=== PATIENT | female | born 1940 | race Caucasian/White ===

== ENCOUNTER 2019-11-27 08:23 | Outpatient (REF) | payer MEDICARE, SELFPAY ==
[2019-11-27 09:36] LABS: MANUAL DIFF FLAG NO
[2019-11-27 09:41] LABS: Basophils Percent Auto 0.5 % (0-2); Eosinophils Absolute Auto 0.1 X10*3/uL (0.0-0.4); Eosinophils Percent Auto 2.4 % (0-4); Imm Gran Abs Auto 0.01 X10*3/uL (0.00-0.03); Imm Gran Pct Auto 0.2 % (0.0-0.4); Lymphocytes Absolute Auto 1.2 X10*3/uL (1.2-4.9); Lymphocytes Percent Auto 27.8 % (20-40); Mean Corpuscular HGB Conc 31.7 g/dl (31.0-35.0); Mean Corpuscular Hemoglobin 26.9 pg (27.0-33.0); Mean Corpuscular Volume 84.9 fL (80-98); Mean Platelet Volume 10.5 fL (9.4-12.3); Monocytes Absolute Auto 0.4 X10*3/uL (0.1-1.2); Monocytes Percent Auto 9.4 % (2-11); Neutrophils Absolute Auto 2.5 X10*3/uL (2.0-8.3); Neutrophils Percent Auto 59.7 % (45-73); Platelet Count 199 X10*3/uL (160-400); Red Blood Count 4.83 X10*6/uL (4.20-5.50); Red Cell Distribution Width 15.1 % (11.0-16.0); White Blood Count 4.2 X10*3/uL (4.8-10.8)
[2019-11-27 10:28] LABS: Alanine Aminotransferase 19 U/L (0-31); Albumin Level 4.2 g/dL (3.5-5.0); Alkaline Phosphatase 70 U/L (39-117); Anion Gap 10 (12-20); Aspartate Amino Transferase 21 U/L (5-31); Bilirubin Total 0.5 mg/dL (0.0-1.0); Blood Urea Nitrogen 16 mg/dL (9-16); Carbon Dioxide 31 mmol/L (22-29); Chloride 106 mmol/L (96-108); Cholesterol 167 mg/dL; Estimated Glomerular Filt Rate > 60; Glucose Random 88 mg/dL (60-115); HDL Cholesterol 54 mg/dL; LDL Cholesterol Calculated 96 mg/dl; Potassium 3.9 mmol/l (3.3-5.1); Sodium 143 mmol/L (135-145); Total Protein 6.7 g/dL (6.5-8.0); Triglycerides 85 mg/dL
[2019-11-27 10:31] LABS: Thyroid Stimulating Hormone 3.66 mIU/mL (0.32-4.0)
[2019-11-27 10:34] LABS: Calcium 9.1 mg/dL (8.4-10.2)
[2019-11-27 12:12] LABS: Erythrocyte Sedimentation Rate 7 MM/HR (0-20)
[2019-11-29 05:11] LABS: Folate 16.4 ng/mL (> or = 4.0); Vitamin B12 455 pg/mL (200-900)
== END 2019-11-27 08:24 | disposition home or self-care (01) ==
LOC: HO.LAB 08:23
PROVIDERS: PCP Internal Medicine; Visit Provider Internal Medicine
DX: E78.00 Pure hypercholesterolemia, unspecified (principal); R53.83 Other fatigue; F32.9 Major depressive disorder, single episode, unspecified; F41.9 Anxiety disorder, unspecified; I10 Essential (primary) hypertension
CPT/HCPCS: 36415; 80053; 80061; 82607; 82746; 84443; 85025; 85652

== ENCOUNTER 2020-02-09 07:52 | Outpatient (REF) | payer MEDICARE, SELFPAY ==
--- NOTE | 2020-02-09 07:54 | XR_ITS ---
EXAMINATION: XR CHEST CLINICAL INFORMATION: Diaphragmatic hernia COMPARISON: Previous chest x-ray most recent July 2019 TECHNIQUE: 2 views of the chest were obtained. FINDINGS: The cardiac and mediastinal contours are normal. There is minimal subsegmental atelectasis at the left lung base. The lungs are otherwise clear. There is no pleural effusion or pneumothorax. There is a severe thoracolumbar scoliosis and increased thoracic kyphosis. There is a right shoulder replacement. XR/XR chest 2V IMPRESSION: No hernia seen. Subsegmental atelectasis of the left lung base. Severe thoracolumbar scoliosis and increased thoracic kyphosis.
--- NOTE | 2020-02-09 07:54 | FL_ITS ---
EXAMINATION: XR GI SERIES CLINICAL INFORMATION: Diaphragmatic hernia COMPARISON: CT of the abdomen and pelvis December 2018 TECHNIQUE: Upper GI was performed using thin and thick barium and effervescent granules. Exam is limited patient limited mobility/difficulty moving. FINDINGS: No hernia is seen. There is slightly abnormal esophageal motility with retrograde peristalsis of contrast. There is mild narrowing of the distal esophagus at the GE junction. When compared with previous CT scan from December 2018 it is uncertain whether this is related to postsurgical change from prior hernia repair or could represent a mild stricture. No significant gastroesophageal reflux is seen. Evaluation of the stomach and duodenum is limited as the patient could not roll on the table. No mass, fold thickening or ulcer is appreciated. FLUOROSCOPY TIME: 2.2 minutes DOSE AREA PRODUCT: 16 steward per centimeter squared. Total dose 72 mg. 29 saved fluoroscopic images. FL/FL upper GI series IMPRESSION: Limited exam due to patient mobility. No hernia seen. Slightly abnormal esophageal motility. Mild fixed narrowing of the distal esophagus at the GE junction. It is uncertain whether this is related to postsurgical change from prior hernia repair or could represent a mild stricture. There is no evidence of obstruction. There is no significant gastroesophageal reflux.
== END 2020-02-09 07:53 | disposition home or self-care (01) ==
LOC: HO.XRAY 07:52
PROVIDERS: Visit Provider Internal Medicine
DX: K44.9 Diaphragmatic hernia without obstruction or gangrene (principal)
CPT/HCPCS: 71046; 74240

== ENCOUNTER 2020-09-02 08:26 | Outpatient (REF) | payer MEDICARE, SELFPAY ==
[2020-09-02 09:10] LABS: MANUAL DIFF FLAG NO
[2020-09-02 09:14] LABS: Basophils Percent Auto 0.4 % (0-2); Eosinophils Absolute Auto 0.1 X10*3/uL (0.0-0.4); Eosinophils Percent Auto 2.3 % (0-4); Hemoglobin 13.9 g/dl (12.0-16.0); Imm Gran Abs Auto 0.02 X10*3/uL (0.00-0.03); Imm Gran Pct Auto 0.4 % (0.0-0.4); Lymphocytes Absolute Auto 1.2 X10*3/uL (1.2-4.9); Lymphocytes Percent Auto 25.8 % (20-40); Mean Corpuscular HGB Conc 33.1 g/dl (31.0-35.0); Mean Corpuscular Hemoglobin 29.5 pg (27.0-33.0); Mean Corpuscular Volume 89.2 fL (80-98); Mean Platelet Volume 10.1 fL (9.4-12.3); Monocytes Absolute Auto 0.4 X10*3/uL (0.1-1.2); Monocytes Percent Auto 8.8 % (2-11); Neutrophils Percent Auto 62.3 % (45-73); Platelet Count 207 X10*3/uL (160-400); Red Blood Count 4.71 X10*6/uL (4.20-5.50); White Blood Count 4.8 X10*3/uL (4.8-10.8)
[2020-09-02 09:38] LABS: Alanine Aminotransferase 10 U/L (0-31); Albumin Level 4.4 g/dL (3.5-5.0); Alkaline Phosphatase 66 U/L (39-117); Anion Gap 12 (12-20); Aspartate Amino Transferase 19 U/L (5-31); Bilirubin Total 0.5 mg/dL (0.0-1.0); Blood Urea Nitrogen 15 mg/dL (9-16); Calcium 9.4 mg/dL (8.4-10.2); Carbon Dioxide 28 mmol/L (22-29); Chloride 105 mmol/L (96-108); Cholesterol 156 mg/dL; Estimated Glomerular Filt Rate > 60; Glucose Random 95 mg/dL (60-115); HDL Cholesterol 54 mg/dL; LDL Cholesterol Calculated 87 mg/dl; Potassium 4.1 mmol/L (3.3-5.1); Sodium 141 mmol/L (135-145); Total Protein 7.1 g/dL (6.5-8.0); Triglycerides 77 mg/dL
[2020-09-02 10:01] LABS: Free T4 (Free Thyroxine) 0.94 ng/dL (0.71-1.85); Thyroid Stimulating Hormone 3.75 uIU/mL (0.32-4.0); Vitamin D 25-OH Total 46.8 ng/mL (>30)
[2020-09-02 10:48] LABS: Glucose Urine UA NEG (NEG); Leukocyte Esterase Urine 3+ (NEG); Nitrite Urine NEG (NEG); Urine Blood TRACE (NEG); Urine Ketones NEG (NEG); Urine Protein NEG (NEG-TRACE)
[2020-09-02 10:49] LABS: Appearance Urine HAZY; Color Urine YELLOW
[2020-09-02 11:06] LABS: Mucus Urine 1+ /LPF; Renal Epithelial Cells Urine 1+ /LPF; Squamous Epithelial Cell Urine 1+ /LPF
[2020-09-04 04:26] LABS: Folate > 20.0 ng/mL (> or = 4.0); Vitamin B12 493 pg/mL (200-900)
== END 2020-09-02 08:27 | disposition home or self-care (01) ==
LOC: HO.LAB 08:26
PROVIDERS: PCP Internal Medicine; Visit Provider Internal Medicine
DX: E78.00 Pure hypercholesterolemia, unspecified (principal)
CPT/HCPCS: 36415; 80053; 80061; 81001; 82306; 82607; 82746; 84439; 84443; 85025

== ENCOUNTER 2020-12-08 14:59 | Outpatient (REF) | payer MEDICARE, SELFPAY ==
--- NOTE | ~2020-12-08 | MM_ITS ---
EXAMINATION: BONE DENSITOMETRY CLINICAL INDICATION: Asymptomatic menopausal state. COMPARISON: Previous BD dated 02/16/2015 and baseline BD dated 07/08/2007. TECHNIQUE: Using a [employer] DXA System (software version: 13.1) manufactured by [employer], dual-energy x-ray absorptiometry was performed of the lumbar spine and left hip. The images are of good technical quality. Summary results are attached. FINDINGS: AP SPINE L1-L4: Current: BMD 0.888 g/cm2, Z-score -0.5, T-score -2.4, osteopenia, 0.4% decrease from previous, 1.3% increase from baseline (<5% change is not significant). Prior: BMD 0.892 g/cm2. Baseline: BMD 0.877 g/cm2. LEFT FEMUR, NECK: Current: BMD 0.666 g/cm2, Z-score -0.5, T-score -2.7, osteoporosis. Prior: BMD 0.764 g/cm2. Baseline: BMD 0.792 g/cm2. LEFT FEMUR, TOTAL: Current: BMD 0.716 g/cm2, Z-score -0.2, T-score -2.3, osteopenia, 10.9% decrease from previous, 22.4% decrease from baseline (<5% change is not significant). Prior: BMD 0.804 g/cm2. Baseline: BMD 0.923 g/cm2. IDENTIFIED RISK FACTORS: Height loss, history of fracture (adult), menopause, hysterectomy, right oophorectomy. HISTORY OF FRACTURE: Humerus/shoulder. MEDICATIONS: Calcium supplements or multivitamin, vitamin D. MM/XR DEXA axial skeleton IMPRESSION: 1. DIAGNOSIS: Severe osteoporosis based on the lowest T-score value of -2.7 in the femoral neck and fracture history applying World Health Organization criteria. 2. 10-YEAR FRACTURE RISK PREDICTION, FRAX: Major osteoporotic fracture (clinical spine, forearm, hip or shoulder) 28.9%. Hip fracture 10.0%. 3. Treatment Recommendations: NOF guidelines recommend consideration for treatment in postmenopausal women and men age 50 and older presenting with the following: -A hip or vertebral (clinical or morphometric) fracture. -T-score less than or equal to -2.5 at the femoral neck or spine after appropriate evaluation to exclude secondary causes. -Low bone mass at the hip or spine and a 10-year fracture probability by FRAX of greater than or equal to 3% for hip fracture or greater than or equal to 20% for major osteoporotic fracture based on the [place] adapted WHO algorithm. 4. Other Recommendations: All treatment decisions require clinical judgment and consideration of individual patient factors, including patient preferences, comorbidities, previous drug use, risk factors not captured in the FRAX model (e.g. frailty, falls, vitamin D deficiency, increased bone turnover, interval significant decline in bone density) and possible under or overestimation of fracture risk by FRAX. Additional medical evaluation for secondary cause of low bone mineral density may be appropriate. FUTURE SCAN RECOMMENDATION: People with diagnosed cases of osteoporosis or at high risk for fracture should have regular bone mineral density tests. For patients eligible for Medicare, routine testing is allowed once every 2 years. The testing frequency can be increased to one year for patients who have rapidly progressing disease, those who are receiving or discontinuing medical therapy to restore bone mass, or have additional risk factors.
== END 2020-12-08 15:00 | disposition home or self-care (01) ==
LOC: HO.MAMMO 14:59
PROVIDERS: PCP Internal Medicine; Visit Provider Nurse Practitioner Family
DX: Z13.820 Encounter for screening for osteoporosis (principal); M81.0 Age-related osteoporosis without current pathological fracture; Z78.0 Asymptomatic menopausal state; Z87.81 Personal history of (healed) traumatic fracture; Z79.899 Other long term (current) drug therapy
CPT/HCPCS: 77080

== ENCOUNTER 2022-04-27 09:19 | Outpatient (REF) | payer MEDICARE, SELFPAY ==
[2022-04-27 09:36] LABS: MANUAL DIFF FLAG NO
[2022-04-27 10:22] LABS: Basophils Percent Auto 0.4 % (0-2); Eosinophils Absolute Auto 0.1 X10*3/uL (0.0-0.4); Eosinophils Percent Auto 1.9 % (0-4); Hematocrit 40.4 % (37.0-47.0); Hemoglobin 13.4 g/dl (12.0-16.0); Imm Gran Abs Auto 0.02 X10*3/uL (0.00-0.03); Imm Gran Pct Auto 0.4 % (0.0-0.4); Lymphocytes Absolute Auto 1.4 X10*3/uL (1.2-4.9); Lymphocytes Percent Auto 30.5 % (20-40); Mean Corpuscular HGB Conc 33.2 g/dl (31.0-35.0); Mean Corpuscular Hemoglobin 28.6 pg (27.0-33.0); Mean Corpuscular Volume 86.1 fL (80.0-98.0); Mean Platelet Volume 10.5 fL (9.4-12.3); Monocytes Absolute Auto 0.4 X10*3/uL (0.1-1.2); Monocytes Percent Auto 9.4 % (2-11); Neutrophils Absolute Auto 2.7 x10*3/uL (2.0-8.3); Neutrophils Percent Auto 57.4 % (45-73); Platelet Count 181 X10*3/uL (160-400); Red Blood Count 4.69 X10*6/uL (4.20-5.50); Red Cell Distribution Width 13.1 % (11.0-16.0); White Blood Count 4.7 X10*3/uL (4.8-10.8)
[2022-04-27 11:00] LABS: Alanine Aminotransferase 13 U/L (0-31); Alkaline Phosphatase 59 U/L (39-117); Anion Gap 11 (12-20); Aspartate Amino Transferase 19 U/L (5-31); Bilirubin Total 0.6 mg/dL (0.0-1.0); Blood Urea Nitrogen 17 mg/dL (9-16); Carbon Dioxide 29 mmol/L (22-29); Chloride 106 mmol/L (96-108); Cholesterol 149 mg/dL; Estimated Glomerular Filt Rate > 60; Glucose Random 86 mg/dL (60-115); HDL Cholesterol 51 mg/dL; LDL Cholesterol Calculated 86 mg/dl; Potassium 3.4 mmol/L (3.3-5.1); Sodium 143 mmol/L (135-145); Total Protein 6.5 g/dL (6.5-8.0); Triglycerides 61 mg/dL
[2022-04-27 11:15] LABS: TSH reflex Free T4 4.02 uIU/mL (0.32-4.0)
[2022-04-27 11:28] LABS: Folate 15.5 ng/mL (> or = 4.0); Free T4 (Free Thyroxine) 0.86 ng/dL (0.71-1.85); Thyroid Stimulating Hormone 3.94 uIU/mL (0.32-4.0); Vitamin B12 691 pg/mL (200-900); Vitamin D 25-OH Total 56.5 ng/mL (>30)
== END 2022-04-27 09:20 | disposition home or self-care (01) ==
LOC: HO.LAB 09:19
PROVIDERS: PCP Internal Medicine; Visit Provider Internal Medicine
DX: Z13.29 Encounter for screening for other suspected endocrine disorder (principal); E78.00 Pure hypercholesterolemia, unspecified; M81.0 Age-related osteoporosis without current pathological fracture
CPT/HCPCS: 36415; 80053; 80061; 82306; 82607; 82746; 84439; 84443; 85025

== ENCOUNTER → 2022-07-30 15:52 | Outpatient (REF) | payer MEDICARE, SELFPAY ==
--- NOTE | 2022-07-30 15:55 | ECG_ITS ---
Test Reason : BRADYCARDIA Blood Pressure : / mmHG Vent. Rate : 067 BPM Atrial Rate : 067 BPM P-R Int : 168 ms QRS Dur : 092 ms QT Int : 422 ms P-R-T Axes : 018 030 023 degrees QTc Int : 445 ms Sinus rhythm with Premature atrial complexes Otherwise normal ECG When compared with ECG of 02-AUG-2019 12:09, Premature atrial complexes are now Present Referred By: Jaimee Drake Electronically Signed By:MAL MAXWELL
== END ==
LOC: HO.CARD 15:52
PROVIDERS: PCP Internal Medicine; Visit Provider Internal Medicine
DX: R00.1 Bradycardia, unspecified (principal)
CPT/HCPCS: 93005

== ENCOUNTER 2022-09-04 10:22 | Outpatient (REF) | payer MEDICARE, SELFPAY ==
--- NOTE | ~2022-09-04 | CT_ITS ---
EXAMINATION: CT HEAD WITHOUT CONTRAST CLINICAL INFORMATION: Cognitive impairment. COMPARISON: Head CT dated 08/02/2019. TECHNIQUE: Contiguous axial imaging was performed from the skull base to vertex without intravenous administration of contrast. This CT examination was performed using dose optimization techniques as appropriate, variously including the following: *Automated exposure control *Adjustment of mA and/or kV according to patient size (this includes techniques or standardized protocols for targeted exams where dose is matched to indication/reason for exam; i.e. extremities or head) *Use of iterative reconstruction technique DLP: 779 mGy-cm FINDINGS: There is no evidence of acute intracranial hemorrhage or territorial infarction. No abnormal mass effect or midline shift is seen. Olmedo to white matter differentiation is well preserved. No extra-axial fluid collections are identified. Generalized parenchymal volume loss noted with [id number] chronic white matter microangiopathy and concordant ex vacuo dilatation of the ventricles. The osseous structures and soft tissues are normal. The mastoid air cells are well aerated. There is significant mucosal thickening in the dependent portion of the right maxillary antrum with chronic sclerotic wall thickening. Trace fluid and aerosolized secretions layer in the right sphenoid sinus with chronic sclerotic wall thickening. The remaining paranasal sinuses are fairly well aerated. CT/CT head/brain wo IV con IMPRESSION: No acute intracranial hemorrhage or territorial infarction. [id number] chronic white matter microangiopathy and progressed moderate diffuse parenchymal volume loss compared to prior imaging with associated ex vacuo dilatation of the ventricles. Moderate right maxillary sinus disease with chronic sclerotic wall thickening. Trace aerosolized secretions and fluid layering in the dependent right sphenoid sinus.
== END 2022-09-04 10:23 | disposition home or self-care (01) ==
LOC: HO.CT 10:22
PROVIDERS: PCP Internal Medicine; Visit Provider Internal Medicine
DX: R41.89 Other symptoms and signs involving cognitive functions and awareness (principal)
CPT/HCPCS: 70450

== ENCOUNTER 2022-09-24 15:16 | Outpatient (AMB) | payer MEDICARE, SELFPAY ==
--- NOTE | 2022-09-24 15:18 | A.OFFPC_ITS ---
Vital Signs 09/24/22 15:19 Height 4 ft 11 in Weight 120 lb BMI 24.2 BP 138/80 Blood Pressure Location Lt brachial Position Sitting Pulse 67 Pulse Source Pulse Oximeter Pulse Oximetry (%) 96 Oxygen Delivery Method Room Air Intake Visit Reasons: Cognitive impairment, le on back painful Allergies meperidine [Demerol] Allergy (Unknown, Verified 09/24/22 15:19) Unknown morphine [MORPHINE] Allergy (Unknown, Verified 09/24/22 15:19) UNKNOWN Sulfa (Sulfonamide Antibiotics) Allergy (Unknown, Verified 09/24/22 15:19) unknown sulfur Allergy (Unknown, Verified 09/24/22 15:19) Unknown amoxicillin [From Augmentin] Adverse Reaction (Intermediate, Verified 09/24/22 15:19) C diff clavulanic acid [From Augmentin] Adverse Reaction (Intermediate, Verified 09/24/22 15:19) C diff Medication List - Last Reconciled 09/24/22 by Jaimee Drake MD acetaminophen 325 mg PO QID PRN albuterol sulfate 90 mcg/actuation 2 puffs PO Q4H PRN alprazolam 0.5 mg PO BID amlodipine 10 mg PO DAILY ascorbic acid (vitamin C) 250 mg PO DAILY atorvastatin 10 mg PO DAILY cholecalciferol (vitamin D3) 25 mcg PO DAILY 90 days cyclobenzaprine 5 mg PO TID PRN fexofenadine 180 mg PO DAILY PRN fluticasone propionate 50 mcg/actuation (Flonase Allergy Relief) 2 sprays intranasal DAILY lisinopril-hydrochlorothiazide 20-12.5 mg 1 tab PO DAILY multivitamin 1 tab PO DAILY omeprazole 20 mg PO DAILY sertraline 200 mg (2 x 100 mg) PO DAILY simethicone 80 mg PO BID-QID PRN Tobacco use date assessed: 07/30/22 Fall risk assessment: No Falls in past year Last assessed Fall Risk: 09/24/22 Dental Screening Dental Screen Date: 09/24/22 Did you have a dental visit in the last 12 months?: No Did you have a dental problem in the last 6 months where you did not have access to dental care?: No Was dental information given to patient?: No HPI Cognitive impairment HPI Details 82-year-old female with multiple medical problems she has osteoporosis, hypertension hypercholesterolemia COPD generalized anxiety disorder GERD cognitive impairment last seen in July 2022 workup was requested and is here for follow-up CT scan of the head done August 2022No acute intracranial hemorrhage or territorial infarction. [id number]-[id number] chronic white matter microangiopathy and progressed moderate diffuse parenchymal volume loss compared to prior imaging with associated ex vacuo dilatation of the ventricles. Moderate right maxillary sinus disease with chronic sclerotic wall thickening. Trace aerosolized secretions and fluid layering in the dependent right sphenoid sinus. [facility] Medical History (Updated 09/24/22 @ 15:45 by Jaimee Drake MD) COPD (chronic obstructive pulmonary disease) Fracture, humerus Hypercholesterolemia Hypertension Severe scoliosis Shoulder impingement syndrome Tiredness Tubular adenoma of colon Surgical History History of colonoscopy History of removal of ovarian cyst History of tonsillectomy Paraesophageal hernia S/P STORM-BSO Family History Father CVD (cardiovascular disease) Heart failure Mother Cervical cancer Sister In good health Social History Housing: House Alcohol intake: never Patient Tobacco Use Status: Never used Tobacco Tobacco use type: Cigarette e-Cigarette/Vaping Use: Never Used Second Hand Smoke Exposure: No service: No Current occupational status: retired Cognitive needs: No Hearing needs: No Vision needs: Yes Questionnaire PHQ-9 Over the last 2 weeks, how often have you been bothered by any of the following problems? 1. Little interest or pleasure in doing things: not at all 2. Feeling down, depressed, or hopeless: not at all 3. Trouble falling or staying asleep, or sleeping too much: several days 4. Feeling tired or having little energy: not at all 5. Poor appetite or overeating: not at all 6. Feeling bad about yourself - or that you are a failure or have let yourself or your family down: not at all 7. Trouble concentrating on things, such as reading the newspaper or watching television: not at all 8. Moving or speaking so slowly that other people could have noticed. Or the opposite - being so fidgety or restless that you have been moving around a lot more than usual: not at all 9. Thoughts that you would be better off or of hurting yourself in some way: not at all Total score: 1 Depression Screening Interpretation: Positive Source: Developed by Drs. Cody Yusuf, Johann Kulkarni and colleagues, with an educational obed from [employer]. Thrive Questionnaire Date Thrive assessed: 07/30/22 AUDIT C Alcohol Use Questionnaire (AUDIT-C) 1. How often do you have a drink containing alcohol?: Never 2. How many drinks containing alcohol do you have on a typical day when you are drinking?: 1 or 2 3. How often do you have six or more drinks on one occasion?: Never Total Score: 0 Score Reviewed/Action Taken: No RENALDO-7 AMB Questionnaire RENALDO-7 Date RENALDO - 7 assessed: 07/30/22 Source: Developed by Drs. Cody Yusuf, Virginia Avila, Johann Khoury and colleagues, with an educational obed from [employer]. Physical exam (Primary Care) Vital Signs: Last Vital Signs Pulse 67 09/24/22 15:19 BP 138/80 09/24/22 15:19 Pulse Ox 96 09/24/22 15:19 Oxygen Delivery Method Room Air 09/24/22 15:19 BMI result Body Mass Index 24.2 Tobacco/Smoking Status: Tobacco use Status Tobacco use date assessed 07/30/22 09/24/22 15:26 Patient Tobacco Use Status Never used Tobacco 09/24/22 15:26 Tobacco use type Cigarette 09/24/22 15:26 e-Cigarette/Vaping Use Never Used 09/24/22 15:26 PHQ-9: PHQ-9 Score PHQ-9: Total score 1 09/24/22 15:26 Depression Screening Interpretation: Positive Thrive Assessment: Date of Thrive Assessment Date Thrive assessed 07/30/22 09/24/22 15:26 Const General: alert; No acute distress Eyes Conjunctivae: conjunctivae normal Resp Auscultation: clear to auscultation bilaterally Cardio Rate: regular rate Rhythm: regular rhythm GI Inspection: Yes normal to inspection Back/Spine/Pelvis Other: Upper back noted 2 cm rounded hyper pigmented elevated rash with mild scaliness nontender on palpation. Extrem General: Yes normal to inspection and No edema Assessment and Plan Assessment & Plan (1) Cognitive impairment: Comment: severe MMS 1030 Code(s): R41.89 - Other symptoms and signs involving cognitive functions and awareness Plan: CT scan revealsNo acute intracranial hemorrhage or territorial infarction. Glhb-qf-[id number] chronic white matter microangiopathy and progressed moderate diffuse parenchymal volume loss compared to prior imaging with associated ex vacuo dilatation of the ventricles. Moderate right maxillary sinus disease with chronic sclerotic wall thickening. Trace aerosolized secretions and fluid layering in the dependent right sphenoid sinus. will start with aricept (2) GERD (gastroesophageal reflux disease): Code(s): K21.9 - Gastro-esophageal reflux disease without esophagitis Plan: Avoid the foods that causes that usually spicy foods, tomato products, juices, coffee, soda and foods that your sensitive to. After eating do not lie down, allow 3-4 hours before in lie down. And keep the head of bed above 30 degrees to avoid the acid from going up. (3) Generalized anxiety disorder: Code(s): F41.1 - Generalized anxiety disorder Plan: Continue with present medication (4) COPD (chronic obstructive pulmonary disease): Code(s): J44.9 - Chronic obstructive pulmonary disease, unspecified Qualifiers: COPD type: emphysema Emphysema type: unspecified Qualified Code(s): J43.9 - Emphysema, unspecified Plan: Stable no inhalers needed (5) Hypercholesterolemia: Code(s): E78.00 - Pure hypercholesterolemia, unspecified Plan: Avoid fried foods, chicken skin, eggs, butter margarine, pastries and meat. Be it pork or beef they have a lot of cholesterol on atorvastatin 10 mg once a day (6) Hypertension: Code(s): I10 - Essential (primary) hypertension Qualifiers: Hypertension type: essential hypertension Qualified Code(s): I10 - Essential (primary) hypertension Plan: Continue with blood pressure medication. Decrease salt intake and exercise lisinopril hydrochlorothiazide 2012.5 and amlodipine 10 mg once a day (7) Eczema: Comment: L upper back area Code(s): L30.9 - Dermatitis, unspecified Plan: steroid cream sent in , and awaiting dermatology Medications: New mometasone 0.1% 1-2 week only 1 appl topical BID PRN 45 grams 0RF skin irritation L30.9 - Dermatitis, unspecified donepezil (Aricept) 5 mg PO BEDTIME 30 tabs 5RF R41.89 - Other symptoms and signs involving cognitive functions and awareness Changed From alprazolam 0.5 mg PO BID 90 days 180 tabs 1RF F32.9 - Major depressive disorder, single episode, unspecified, F41.9 - Anxiety disorder, unspecified To alprazolam Takes 1/2 a tab in the AM, full tab in the PM 0.5 mg PO BID F32.9 - Major depressive disorder, single episode, unspecified, F41.9 - Anxiety disorder, unspecified Coding Level of Care Code Est Pt Level 4 (44615) Diagnoses Cognitive impairment R41.89 GERD (gastroesophageal reflux disease) K21.9 Generalized anxiety disorder F41.1 COPD (chronic obstructive pulmonary disease) J43.9 COPD type: emphysema Emphysema type: unspecified Hypercholesterolemia E78.00 Hypertension I10 Hypertension type: essential hypertension Eczema L30.9
[2022-09-24 15:19] VITALS: BP 138/80; PULSE 67; O2SAT 96; BMI 24.2
== END 2022-09-24 15:51 | disposition home or self-care (01) ==
PROVIDERS: PCP Internal Medicine; Visit Provider Internal Medicine
DX: K21.9 Gastro-esophageal reflux disease without esophagitis (principal); J43.9 Emphysema, unspecified; I10 Essential (primary) hypertension; R41.89 Other symptoms and signs involving cognitive functions and awareness; F41.1 Generalized anxiety disorder; E78.00 Pure hypercholesterolemia, unspecified; L30.9 Dermatitis, unspecified
CPT/HCPCS: 99214

== ENCOUNTER 2022-10-30 13:28 | Outpatient (REF) | payer MEDICARE, SELFPAY ==
[2022-10-30 13:39] LABS: MANUAL DIFF FLAG NO
[2022-10-30 14:37] LABS: Basophils Percent Auto 0.2 % (0-2); Eosinophils Absolute Auto 0.1 X10*3/uL (0.0-0.4); Eosinophils Percent Auto 1.5 % (0-4); Hematocrit 40.2 % (37.0-47.0); Hemoglobin 13.3 g/dl (12.0-16.0); Imm Gran Abs Auto 0.01 X10*3/uL (0.00-0.03); Imm Gran Pct Auto 0.2 % (0.0-0.4); Lymphocytes Absolute Auto 1.8 X10*3/uL (1.2-4.9); Lymphocytes Percent Auto 33.3 % (20-40); Mean Corpuscular HGB Conc 33.1 g/dl (31.0-35.0); Mean Corpuscular Hemoglobin 28.9 pg (27.0-33.0); Mean Corpuscular Volume 87.4 fL (80.0-98.0); Mean Platelet Volume 11.4 fL (9.4-12.3); Monocytes Absolute Auto 0.5 X10*3/uL (0.1-1.2); Monocytes Percent Auto 8.8 % (2-11); Platelet Count 181 X10*3/uL (160-400); Red Cell Distribution Width 13.3 % (11.0-16.0); White Blood Count 5.3 X10*3/uL (4.8-10.8)
[2022-10-30 15:05] LABS: Alanine Aminotransferase 14 U/L (0-31); Albumin Level 4.1 g/dL (3.5-5.0); Alkaline Phosphatase 62 U/L (39-117); Anion Gap 12 (12-20); Aspartate Amino Transferase 21 U/L (5-31); Bilirubin Total 0.4 mg/dL (0.0-1.0); Blood Urea Nitrogen 16 mg/dL (9-16); Calcium 9.5 mg/dL (8.4-10.2); Carbon Dioxide 27 mmol/L (22-29); Chloride 107 mmol/L (96-108); Estimated Glomerular Filt Rate > 60; Glucose Random 90 mg/dL (60-115); Potassium 3.5 mmol/L (3.3-5.1); Sodium 142 mmol/L (135-145)
[2022-10-30 15:21] LABS: Free T4 (Free Thyroxine) 0.85 ng/dL (0.71-1.85); Thyroid Stimulating Hormone 4.27 uIU/mL (0.32-4.0)
== END 2022-10-30 13:29 | disposition home or self-care (01) ==
LOC: HO.LAB 13:28
PROVIDERS: PCP Internal Medicine; Visit Provider Internal Medicine
DX: R94.6 Abnormal results of thyroid function studies (principal)
CPT/HCPCS: 36415; 80053; 84439; 84443; 85025

== ENCOUNTER 2023-01-24 19:03 | Emergency (ER) | payer MEDICARE, SELFPAY ==
--- NOTE | ~2023-01-24 | XR_ITS ---
EXAMINATION: XR HUMERUS, LEFT CLINICAL INFORMATION: Fall COMPARISON: Left shoulder 12/05/2014 TECHNIQUE: AP and lateral views of the left humerus. FINDINGS: The humerus appears unremarkable without evidence of a fracture. Some mild degenerative changes are seen at the AC joint.. Some mild degenerative change seen at the glenohumeral joint. Imaged portions of the shoulder and elbow are otherwise unremarkable. XR/XR humerus LT IMPRESSION: No evidence of a traumatic injury. Mild degenerative changes as described above.
[2023-01-24 19:12] VITALS: BP 147/72; PULSE 85; O2SAT 99
--- NOTE | 2023-01-24 19:14 | ED.FALL ---
HPI - Fall General Chief Complaint: Fall Stated Complaint: L ARM PAIN FELL Time Seen by Provider: 01/24/23 19:13 Source: patient Mode of arrival: EMS Limitations: no limitations History of Present Illness HPI Narrative: Patient came after a mechanical fall was at home going inside the kitchen which had stepped missed and fell landed on left side complaining of pain in the left arm no loss of consciousness denies any head strike no neck pain no pelvic pain Related Data Home Medications Medication Instructions Recorded Confirmed acetaminophen 325 mg capsule 325 mg PO QID PRN 11/25/19 09/24/22 simethicone 80 mg tablet 80 mg PO BID-QID PRN 11/25/19 09/24/22 alprazolam 0.5 mg tablet 0.5 mg PO BID 09/24/22 09/24/22 Previous Rx's Medication Instructions Recorded cyclobenzaprine 5 mg tablet 5 mg PO TID PRN muscle spasm #60 01/30/21 tabs albuterol sulfate 90 mcg/actuation 2 puff PO Q4H PRN bronchospasm 04/05/22 aerosol inhaler #8.5 grams amlodipine 10 mg tablet 10 mg PO DAILY #90 tabs 04/05/22 atorvastatin 10 mg tablet 10 mg PO DAILY #90 tabs 04/05/22 fexofenadine 180 mg tablet 180 mg PO DAILY PRN allergy 04/05/22 symptoms #90 tabs lisinopril 20 1 tab PO DAILY #90 tabs 04/05/22 mg-hydrochlorothiazide 12.5 mg tablet ascorbic acid (vitamin C) 250 mg 250 mg PO DAILY #30 tabs 05/10/22 tablet cholecalciferol (vitamin D3) 25 25 mcg PO DAILY 90 days #90 caps 07/04/22 mcg (1,000 unit) capsule multivitamin 1 tab PO DAILY #90 tabs 07/04/22 sertraline 100 mg tablet 200 mg (2 x 100 mg) PO DAILY #180 08/16/22 tabs fluticasone propionate 50 2 spray intranasal DAILY #15.8 mL 09/19/22 mcg/actuation nasal spray,suspension (Flonase Allergy Relief) donepezil 5 mg tablet (Aricept) 5 mg PO BEDTIME #30 tabs 09/24/22 mometasone 0.1 % topical cream 1 appl topical BID PRN skin 09/24/22 irritation #45 grams omeprazole 20 mg capsule,delayed 20 mg PO DAILY #90 caps 01/07/23 release Allergies Allergy/AdvReac Type Severity Reaction Status Date / Time meperidine [Demerol] Allergy Unknown Unknown Verified 09/24/22 15:19 morphine [MORPHINE] Allergy Unknown UNKNOWN Verified 09/24/22 15:19 Sulfa (Sulfonamide Allergy Unknown unknown Verified 09/24/22 15:19 Antibiotics) sulfur Allergy Unknown Unknown Verified 09/24/22 15:19 amoxicillin [From Augmentin] AdvReac Intermediate C diff Verified 09/24/22 15:19 clavulanic acid AdvReac Intermediate C diff Verified 09/24/22 15:19 [From Augmentin] Review of Systems Review of Systems: Yes all other systems are reviewed and are negative PMFSH Past Medical History Medical History Tiredness Fracture, humerus Shoulder impingement syndrome Tubular adenoma of colon Severe scoliosis COPD (chronic obstructive pulmonary disease) Hypercholesterolemia Hypertension Surgical History History of colonoscopy History of removal of ovarian cyst History of tonsillectomy S/P STORM-BSO Paraesophageal hernia Family History Family History Father CVD (cardiovascular disease) Heart failure Mother Cervical cancer Sister In good health Social History Social History Housing: House Alcohol intake: never Patient Tobacco Use Status: Never used Tobacco Tobacco use type: Cigarette Smoked in Last 30 Days: No e-Cigarette/Vaping Use: Never Used Second Hand Smoke Exposure: No Advance Directives: Yes Advance Directives on File: No service: No Current occupational status: retired Cognitive needs: No Hearing needs: No Vision needs: Yes Physical Exam Vital Signs: Vital Signs: Last Vital Signs Temp 98.2 F 01/24/23 19:19 Pulse 87 01/24/23 19:19 Resp 17 01/24/23 19:19 BP 154/71 H 01/24/23 19:19 Pulse Ox 98 01/24/23 19:19 O2 Del Method Room Air 01/24/23 19:19 BMI result Body Mass Index 21.1 Appearance: Alert. Oriented X3. No acute distress. Eyes: PERRLA, No Nystagmus ENT: Pharynx normal. Oral Mucosa moist Neck: Normal inspection. Neck supple. No midline tenderness CVS: Normal heart rate and rhythm. Pulses normal. Respiratory: No respiratory distress. Equal air entry bilateral, Abdomen: Soft and nontender. Bowel sounds are present, Skin: Skin warm and dry. Normal skin color. Normal skin turgor. Extremities: No lower extremity edema. No calf tenderness tenderness at left upper end of humerus neurovascular intact Neuro: Oriented X 3. No motor deficit. No sensory deficit.No cerebellar signs , cranial nerves II-XII intact Medications Administered Discontinued Medications Generic Name Dose Route Start Last Admin Trade Name Freq PRN Reason Stop Dose Admin Acetaminophen 650 mg 01/24/23 19:53 01/24/23 20:08 Acetaminophen 325 Mg Tablet PO 01/24/23 19:54 650 mg ONCE ONE Administration Medical Decision Making Medical Decision Making MDM Narrative: Patient status post mechanical fall with left upper and humerus pain and tenderness no deformity noticed neurovascular intact x-ray negative for fracture but patient still has pain but able to move her left humerus will give her sling advised to follow-up PCP/orthopedic Differential Diagnosis Differential Diagnoses: The differential diagnosis associated with the presentation includes Humerus fracture/clavicle fracture Independent Interpretation I performed an independent interpretation of an: Plain X-Ray Radiology Impression Discussion of test interpretation with radiology: I have reviewed the radiologist's reading. Radiologist Impression: XR/XR humerus LT IMPRESSION: No evidence of a traumatic injury. Mild degenerative changes as described above. Discharge Plan Discharge Clinical Impression: Contusion of left shoulder Patient Disposition: Home, Self-Care Instructions: Shoulder Pain (ED) Additional Instructions: Likely have contusion of your left shoulder No clear-cut fracture was seen in xray Wear the sling for support Tylenol for pain Follow-up with PCP/Orthopedics if pain continues for a recheck Prescriptions: No Action cyclobenzaprine 5 mg tablet 5 mg PO TID PRN (Reason: muscle spasm) Qty: 60 3RF lisinopril-hydrochlorothiazide 20-12.5 mg tablet 1 tab PO DAILY Qty: 90 3RF atorvastatin 10 mg tablet 10 mg PO DAILY Qty: 90 3RF amlodipine 10 mg tablet 10 mg PO DAILY Qty: 90 3RF albuterol sulfate 90 mcg/actuation HFA aerosol inhaler 2 puff PO Q4H PRN (Reason: bronchospasm) Qty: 8.5 0RF fexofenadine 180 mg tablet 180 mg PO DAILY PRN (Reason: allergy symptoms) Qty: 90 3RF ascorbic acid (vitamin C) 250 mg tablet 250 mg PO DAILY Qty: 30 0RF multivitamin Tablet 1 tab PO DAILY Qty: 90 1RF cholecalciferol (vitamin D3) 25 mcg (1,000 unit) capsule 25 mcg PO DAILY 90 Days Qty: 90 1RF sertraline 100 mg tablet 200 mg PO DAILY Qty: 180 2RF fluticasone propionate [Flonase Allergy Relief] 50 mcg/actuation spray,suspension 2 spray intranasal DAILY Qty: 15.8 5RF Rx Instructions: administer into each nostril omeprazole 20 mg capsule,delayed release(DR/EC) 20 mg PO DAILY Qty: 90 2RF acetaminophen 325 mg capsule 325 mg PO QID PRN simethicone 80 mg tablet 80 mg PO BID-QID PRN alprazolam 0.5 mg tablet 0.5 mg PO BID Rx Instructions: Takes 1/2 a tab in the AM, full tab in the PM mometasone 0.1 % cream 1 appl topical BID PRN (Reason: skin irritation) Qty: 45 0RF Rx Instructions: 1-2 week only donepezil [Aricept] 5 mg tablet 5 mg PO BEDTIME Qty: 30 5RF
[2023-01-24 19:16] VITALS: BMI 21.1
[2023-01-24 19:19] VITALS: BP 154/71; PULSE 87; RESP 17; TEMP 36.8; O2SAT 98
[2023-01-24] MEDS: Acetaminophen 325 MG TABLET 650 MG PO (20:08)
--- NOTE | 2023-01-24 21:20 | PC.NURSE ---
ambulated pt with assist. tolorated well. eddie at bedside stst will be home with her for help
[2023-01-24 22:02] VITALS: BP 130/67; PULSE 91
== END 2023-01-24 22:34 | disposition home or self-care (01) ==
PROVIDERS: Emergency Provider Internal Medicine; PCP Internal Medicine
DX: S40.012A Contusion of left shoulder, initial encounter (principal); M79.602 Pain in left arm; W10.9XXA Fall (on) (from) unspecified stairs and steps, initial encounter; Y93.9 Activity, unspecified; Y92.9 Unspecified place or not applicable; Y99.9 Unspecified external cause status; Z79.899 Other long term (current) drug therapy
CPT/HCPCS: 73060; 99283; 99284

== ENCOUNTER 2023-02-04 12:43 | Outpatient (AMB) | payer MEDICARE, SELFPAY ==
[2023-02-04 12:51] VITALS: BP 124/78; PULSE 78; O2SAT 98; BMI 20.3
--- NOTE | 2023-02-04 12:51 | A.OFFPC_ITS ---
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 Technology Architect: Present Accompanied by: Daughter Allergies meperidine [Demerol] Allergy (Unknown, Verified 02/04/23 12:52) Unknown morphine [MORPHINE] Allergy (Unknown, Verified 02/04/23 12:52) UNKNOWN Sulfa (Sulfonamide Antibiotics) Allergy (Unknown, Verified 02/04/23 12:52) unknown sulfur Allergy (Unknown, Verified 02/04/23 12:52) Unknown amoxicillin [From Augmentin] Adverse Reaction (Intermediate, Verified 02/04/23 12:52) C diff clavulanic acid [From Augmentin] Adverse Reaction (Intermediate, Verified 02/04/23 12:52) C diff Tobacco use date assessed: 07/30/22 Fall risk assessment: 1 Fall in past year Last assessed Fall Risk: 02/04/23 Dental Screening Dental Screen Date: 02/04/23 Did you have a dental visit in the last 12 months?: Yes Did you have a dental problem in the last 6 months where you did not have access to dental care?: No Was dental information given to patient?: Patient has dentist HPI Fall 2 HPI0 Details 82-year-old female with a history of cog nitive impairment GERD generalized anxiety disorder COPD hypercholesterolemia hypertension last seen in September 2022. Patient does have severe osteoporosis and last bone density was December 2020. Review of the notes January 24 had a mechanical fall missed step and landed on the left side now complaining of left arm pain denies any head trauma x-ray done with no evidence of traumatic/fracture diagnosis of contusion of the left shoulder. slipped on a rug. taken off aricept due to not feeling well. L arm still in pain. concern on falls also - bed is high and have difficulty going down bed and asking for lower bed height - advisd to ask medical supply store a lower bed height . also concern on neck glands bigger 1 week already [facility] Medical History Tiredness Fracture, humerus Shoulder impingement syndrome Tubular adenoma of colon Severe scoliosis COPD (chronic obstructive pulmonary disease) Hypercholesterolemia Hypertension Surgical History History of colonoscopy History of removal of ovarian cyst History of tonsillectomy S/P STORM-BSO Paraesophageal hernia Family History Father CVD (cardiovascular disease) Heart failure Mother Cervical cancer Sister In good health Social History Housing: House Alcohol intake: never Patient Tobacco Use Status: Never used Tobacco Tobacco use type: Cigarette e-Cigarette/Vaping Use: Never Used Second Hand Smoke Exposure: No service: No Current occupational status: retired Cognitive needs: No Hearing needs: No Vision needs: Yes Questionnaire Thrive Questionnaire Date Thrive assessed: 07/30/22 RENALDO-7 AMB Questionnaire RENALDO-7 Date RENALDO - 7 assessed: 07/30/22 Source: Developed by Drs. Cody Yusuf, Virginia Avila, Johann Khoury and colleagues, with an educational obed from [employer]. Physical exam (Primary Care) Vital Signs: Last Vital Signs Pulse 78 02/04/23 12:51 BP 124/78 02/04/23 12:51 Pulse Ox 98 02/04/23 12:51 Oxygen Delivery Method Room Air 02/04/23 12:51 BMI result Body Mass Index 20.3 Tobacco/Smoking Status: Tobacco use Status Tobacco use date assessed 07/30/22 02/04/23 12:56 Patient Tobacco Use Status Never used Tobacco 02/04/23 12:56 Tobacco use type Cigarette 02/04/23 12:56 e-Cigarette/Vaping Use Never Used 02/04/23 12:56 Thrive Assessment: Date of Thrive Assessment Date Thrive assessed 07/30/22 02/04/23 12:56 Const General: alert; No acute distress Eyes Conjunctivae: conjunctivae normal Resp Auscultation: clear to auscultation bilaterally Cardio Rate: regular rate Rhythm: regular rhythm GI Inspection: Yes normal to inspection Extrem General: Yes normal to inspection and No edema Shoulder/upper arm images: 2 1. Noted hematoma on the left arm to the posterior area Assessment and Plan Assessment & Plan (1) Contusion of left shoulder: Code(s): S40.012A - Contusion of left shoulder, initial encounter Plan: no fracture on humerus, physical therapy advsied , holding off ortho referral for now (2) Fall: Code(s): W19.XXXA - Unspecified fall, initial encounter Plan: Patient is aware offered physical therapy (3) Hypertension: Code(s): I10 - Essential (primary) hypertension Qualifiers: Hypertension type: essential hypertension Qualified Code(s): I10 - Essential (primary) hypertension Plan: Continue with blood pressure medication. Decrease salt intake and exercise patient takes lisinopril hydrochlorothiazide (4) Hypercholesterolemia: Code(s): E78.00 - Pure hypercholesterolemia, unspecified Plan: Avoid fried foods, chicken skin, eggs, butter margarine, pastries and meat. Be it pork or beef they have a lot of cholesterol patient is on atorvastatin 10 mg once a day (5) COPD (chronic obstructive pulmonary disease): Code(s): J44.9 - Chronic obstructive pulmonary disease, unspecified Qualifiers: COPD type: emphysema Emphysema type: unspecified Qualified Code(s): J 43.9 - Emphysema, unspecified Plan: Stable (6) Generalized anxiety disorder: Code(s): F41.1 - Generalized anxiety disorder Plan: Patient has alprazolam and sertraline (7) Osteoporosis: Comment: December 2020 Code(s): M81.0 - Age-related osteoporosis without current pathological fracture Plan: Discussed about repeat., declined med (8) Gait instability: Code(s): R26.81 - Unsteadiness on feet Plan: Patient will give the name of the type of bed needed to be lower so the patient is able to get out of bed easier Coding Level of Care Code Est Pt Level 4 (19984) Diagnoses Contusion of left shoulder S40.012A Fall W19.XXXA Essential hypertension I10 Hypertension type: essential hypertension Hypercholesterolemia E78.00 Pulmonary emphysema, unspecified emphysema type J43.9 COPD type: emphysema Emphysema type: unspecified Generalized anxiety disorder F41.1 Osteoporosis M81.0 Gait instability R26.81
== END 2023-02-04 13:40 | disposition home or self-care (01) ==
PROVIDERS: PCP Internal Medicine; Visit Provider Internal Medicine
DX: J43.9 Emphysema, unspecified (principal); S40.012A Contusion of left shoulder, initial encounter; W19.XXXA Unspecified fall, initial encounter; I10 Essential (primary) hypertension; E78.00 Pure hypercholesterolemia, unspecified; F41.1 Generalized anxiety disorder; M81.0 Age-related osteoporosis without current pathological fracture; R26.81 Unsteadiness on feet
CPT/HCPCS: 99214

== ENCOUNTER 2023-03-22 10:09 | Outpatient (REF) | payer MEDICARE, SELFPAY ==
[2023-03-22 11:28] LABS: Thyroid Stimulating Hormone 3.15 uIU/mL (0.32-4.0)
== END 2023-03-22 10:10 | disposition home or self-care (01) ==
LOC: HO.LAB 10:09
PROVIDERS: PCP Internal Medicine; Visit Provider Internal Medicine
DX: R79.89 Other specified abnormal findings of blood chemistry (principal)
CPT/HCPCS: 36415; 84439; 84443

== ENCOUNTER 2023-03-28 15:16 | Outpatient (AMB) | payer MEDICARE, SELFPAY ==
[2023-03-28 15:17] VITALS: BP 110/68; PULSE 65; O2SAT 96; BMI 19.7
--- NOTE | 2023-03-28 15:17 | A.OFFPC_ITS ---
Vital Signs 03/28/23 15:17 Height 5 ft 4 in Weight 115 lb 0.2 oz BMI 19.7 BP 110/68 Blood Pressure Location Rt brachial Position Sitting Pulse 65 Pulse Source Pulse Oximeter Pulse Oximetry (%) 96 Oxygen Delivery Method Room Air Intake Visit Reasons: cognitive impairment Launch Check Out Required: No Allergies meperidine [Demerol] Allergy (Unknown, Verified 03/28/23 15:48) Unknown morphine [MORPHINE] Allergy (Unknown, Verified 03/28/23 15:48) UNKNOWN Sulfa (Sulfonamide Antibiotics) Allergy (Unknown, Verified 03/28/23 15:48) unknown sulfur Allergy (Unknown, Verified 03/28/23 15:48) Unknown amoxicillin [From Augmentin] Adverse Reaction (Intermediate, Verified 03/28/23 15:48) C diff clavulanic acid [From Augmentin] Adverse Reaction (Intermediate, Verified 03/28/23 15:48) C diff Tobacco use date assessed: 03/28/23 Fall risk assessment: 1 Fall in past year Last assessed Fall Risk: 03/28/23 Dental Screening Dental Screen Date: 03/28/23 Did you have a dental visit in the last 12 months?: No Did you have a dental problem in the last 6 months where you did not have access to dental care?: No HPI cognitive impairment HPI Details 83-year-old female seen last January fo r fall has a history of hypertension hypercholesterolemia COPD generalized anxiety disorde. Patient is here for follow-up. doing PT at home and range of motion L shoulder is better but still limited to 90 degrees. concern on esophageal hernia and discussed the [facility] Medical History Tiredness Fracture, humerus Shoulder impingement syndrome Tubular adenoma of colon Severe scoliosis COPD (chronic obstructive pulmonary disease) Hypercholesterolemia Hypertension Surgical History History of colonoscopy History of removal of ovarian cyst History of tonsillectomy S/P STORM-BSO Paraesophageal hernia Family History Father CVD (cardiovascular disease) Heart failure Mother Cervical cancer Sister In good health Social History Housing: House Alcohol intake: never Patient Tobacco Use Status: Never used Tobacco Tobacco use type: Cigarette e-Cigarette/Vaping Use: Never Used Second Hand Smoke Exposure: No service: No Current occupational status: retired Cognitive needs: No Hearing needs: No Vision needs: Yes Questionnaire Thrive Questionnaire Date Thrive assessed: 03/28/23 AUDIT C Alcohol Use Questionnaire (AUDIT-C) 1. How often do you have a drink containing alcohol?: Never 2. How many drinks containing alcohol do you have on a typical day when you are drinking?: 1 or 2 3. How often do you have six or more drinks on one occasion?: Never Total Score: 0 Score Reviewed/Action Taken: No RENALDO-7 AMB Questionnaire RENALDO-7 Date RENALDO - 7 assessed: 03/28/23 Source: Developed by Drs. Cody Yusuf, Virginia Avila, Johann Khoury and colleagues, with an educational obed from [employer]. Physical exam (Primary Care) Vital Signs: Last Vital Signs Pulse 65 03/28/23 15:17 BP 110/68 03/28/23 15:17 Pulse Ox 96 03/28/23 15:17 Oxygen Delivery Method Room Air 03/28/23 15:17 BMI result Body Mass Index 19.7 Tobacco/Smoking Status: Tobacco use Status Tobacco use date assessed 03/28/23 03/28/23 15:18 Patient Tobacco Use Status Never used Tobacco 03/28/23 15:18 Tobacco use type Cigarette 03/28/23 15:18 e-Cigarette/Vaping Use Never Used 03/28/23 15:18 Thrive Assessment: Date of Thrive Assessment Date Thrive assessed 03/28/23 03/28/23 15:18 Const General: alert; No acute distress Eyes Conjunctivae: conjunctivae normal Resp Auscultation: clear to auscultation bilaterally Cardio Rate: regular rate Rhythm: regular rhythm GI Inspection: Yes normal to inspection Extrem General: Yes normal to inspection and No edema Assessment and Plan Assessment & Plan (1) Hypertension: Code(s): I10 - Essential (primary) hypertension Qualifiers: Hypertension type: essential hypertension Qualified Code(s): I10 - Essential (primary) hypertension Plan: Continue with blood pressure medication. Decrease salt intake and exercise patient is taking amlodipine 10 mg once a day lisinopril hydrochlorothiazide 20/12.5 mg once a day (2) Hypercholesterolemia: Code(s): E78.00 - Pure hypercholesterolemia, unspecified Plan: Avoid fried foods, chicken skin, eggs, butter margarine, pastries and meat. Be it pork or beef they have a lot of cholesterol LDL goal of less than 130 and triglyceride of less than 150 patient is on atorvastatin 10 mg once a day (3) COPD (chronic obstructive pulmonary disease): Code(s): J44.9 - Chronic obstructive pulmonary disease, unspecified Qualifiers: COPD type: emphysema Emphysema type: unspecified Qualified Code(s): J43.9 - Emphysema, unspecified Plan: Continue with the inhaler as needed (4) Generalized anxiety disorder: Code(s): F41.1 - Generalized anxiety disorder Plan: Continue with present medication (5) GERD (gastroesophageal reflux disease): Code(s): K21.9 - Gastro-esophageal reflux disease without esophagitis Plan: Avoid the foods that causes that usually spicy foods, tomato products, juices, coffee, soda and foods that your sensitive to. After eating do not lie down, allow 3-4 hours before in lie down. And keep the head of bed above 30 degrees to avoid the acid from going up. On omeprazole 20 mg once a day (6) Cognitive impairment: Comment: severe MMS 12/09 Code(s): R41.89 - Other symptoms and signs involving cognitive functions and awareness Plan: Conservative management Orders: Orders Vitamin B12 and Folate 3 Months E78.00 - Pure hypercholesterolemia, unspecified Complete Blood Count Auto Diff 3 Months E78.00 - Pure hypercholesterolemia, unspecified Comprehensive Met. Panel 3 Months E78.00 - Pure hypercholesterolemia, unspecified Free T4 (Free Thyroxine) 3 Months E78.00 - Pure hypercholesterolemia, unspecified Lipid Panel 3 Months E78.00 - Pure hypercholesterolemia, unspecified Thyroid Stimulating Hormone 3 Months E78.00 - Pure hypercholesterolemia, unspecified Vitamin D 25-OH Total 3 Months E78.00 - Pure hypercholesterolemia, unspecified UA CC w/rflx Micro + Cult 3 Months E78.00 - Pure hypercholesterolemia, unspecified, R30.0 - Dysuria Coding Level of Care Code Est Pt Level 4 (05989) Diagnoses Essential hypertension I10 Hypertension type: essential hypertension Hypercholesterolemia E78.00 Pulmonary emphysema, unspecified emphysema type J43.9 COPD type: emphysema Emphysema type: unspecified Generalized anxiety disorder F41.1 GERD (gastroesophageal reflux disease) K21.9 Cognitive impairment R41.89
== END 2023-03-28 16:16 | disposition home or self-care (01) ==
PROVIDERS: PCP Internal Medicine; Visit Provider Internal Medicine
DX: I10 Essential (primary) hypertension (principal); E78.00 Pure hypercholesterolemia, unspecified; J43.9 Emphysema, unspecified; F41.1 Generalized anxiety disorder; K21.9 Gastro-esophageal reflux disease without esophagitis; R41.89 Other symptoms and signs involving cognitive functions and awareness
CPT/HCPCS: 99214

== ENCOUNTER 2023-06-30 15:26 | Outpatient (AMB) | payer MEDICARE, SELFPAY ==
--- NOTE | 2023-06-30 15:28 | A.OFFPC_ITS ---
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: No Allergies meperidine [Demerol] Allergy (Unknown, Verified 06/30/23 15:39) Unknown morphine [MORPHINE] Allergy (Unknown, Verified 06/30/23 15:39) UNKNOWN Sulfa (Sulfonamide Antibiotics) Allergy (Unknown, Verified 06/30/23 15:39) unknown sulfur Allergy (Unknown, Verified 06/30/23 15:39) Unknown amoxicillin [From Augmentin] Adverse Reaction (Intermediate, Verified 06/30/23 15:39) C diff clavulanic acid [From Augmentin] Adverse Reaction (Intermediate, Verified 06/30/23 15:39) C diff Tobacco use date assessed: 06/30/23 Fall risk assessment: 1 Fall in past year Last assessed Fall Risk: 06/30/23 Dental Screening Dental Screen Date: 03/28/23 Did you have a dental visit in the last 12 months?: No Did you have a dental problem in the last 6 months where you did not have access to dental care?: No HPI GERD hypertension, hypercholesterolemia HPI Details 83-year-old female with hypertension hyp ercholesterolemia COPD generalized anxiety disorder GERD last seen in March noted to have some cognitive impairment. Patient comes in for follow-up. June 21, 2023 fall alarm called non witness [facility] Medical History Tiredness Fracture, humerus Shoulder impingement syndrome Tubular adenoma of colon Severe scoliosis COPD (chronic obstructive pulmonary disease) Hypercholesterolemia Hypertension Surgical History History of colonoscopy History of removal of ovarian cyst History of tonsillectomy S/P STORM-BSO Paraesophageal hernia Family History Father CVD (cardiovascular disease) Heart failure Mother Cervical cancer Sister In good health Social History Housing: House Alcohol intake: never Patient Tobacco Use Status: Never used Tobacco Tobacco use type: Cigarette e-Cigarette/Vaping Use: Never Used Second Hand Smoke Exposure: No service: No Current occupational status: retired Cognitive needs: No Hearing needs: No Vision needs: Yes Questionnaire Thrive Questionnaire Date Thrive assessed: 03/28/23 AUDIT C Alcohol Use Questionnaire (AUDIT-C) 1. How often do you have a drink containing alcohol?: Never 2. How many drinks containing alcohol do you have on a typical day when you are drinking?: 1 or 2 3. How often do you have six or more drinks on one occasion?: Never Total Score: 0 Score Reviewed/Action Taken: No RENALDO-7 AMB Questionnaire RENALDO-7 Date RENALDO - 7 assessed: 03/28/23 Source: Developed by Drs. Cody Yusuf, Virginia Avila, Johann Khoury and colleagues, with an educational obed from [employer]. Physical exam (Primary Care) Vital Signs: Last Vital Signs Pulse 71 06/30/23 15:32 BP 112/70 06/30/23 15:32 Pulse Ox 98 06/30/23 15:32 Oxygen Delivery Method Room Air 06/30/23 15:32 BMI result Body Mass Index 19.7 Tobacco/Smoking Status: Tobacco use Status Tobacco use date assessed 06/30/23 06/30/23 15:32 Patient Tobacco Use Status Never used Tobacco 06/30/23 15:30 Tobacco use type Cigarette 06/30/23 15:30 e-Cigarette/Vaping Use Never Used 06/30/23 15:30 Thrive Assessment: Date of Thrive Assessment Date Thrive assessed 03/28/23 06/30/23 15:30 Const General: alert; No acute distress Eyes Conjunctivae: conjunctivae normal Resp Auscultation: clear to auscultation bilaterally Cardio Rate: regular rate Rhythm: regular rhythm GI Inspection: Yes normal to inspection Extrem General: Yes normal to inspection and No edema Assessment and Plan Assessment & Plan (1) Hypertension: Code(s): I10 - Essential (primary) hypertension Qualifiers: Hypertension type: essential hypertension Qualified Code(s): I10 - Essential (primary) hypertension Plan: Continue with blood pressure medication. Decrease salt intake and exercise on amlodipine 10 mg once a day and lisinopril hydrochlorothiazide 20/12.5 mg once a day (2) Hypercholesterolemia: Code(s): E78.00 - Pure hypercholesterolemia, unspecified Plan: Avoid fried foods, chicken skin, eggs, butter margarine, pastries and meat. Be it pork or beef they have a lot of cholesterol on atorvastatin 10 mg once a day (3) COPD (chronic obstructive pulmonary disease): Code(s): J44.9 - Chronic obstructive pulmonary disease, unspecified Qualifiers: COPD type: emphysema Emphysema type: unspecified Qualified Code(s): J43.9 - Emphysema, unspecified Plan: Patient takes albuterol inhaler p.r.n. (4) Generalized anxiety disorder: Code(s): F41.1 - Generalized anxiety disorder Plan: Continue with present medication on sertraline 200 mg once a day and alprazolam as needed (5) GERD (gastroesophageal reflux disease): Code(s): K21.9 - Gastro-esophageal reflux disease without esophagitis Plan: Avoid the foods that causes that usually spicy foods, tomato products, juices, coffee, soda and foods that your sensitive to. After eating do not lie down, allow 3-4 hours before in lie down. And keep the head of bed above 30 degrees to avoid the acid from going up. (6) Fall: Comment: June 21, 2023 Code(s): W19.XXXA - Unspecified fall, initial encounter (7) Right knee pain: Code(s): M25.561 - Pain in right knee (8) Shoulder pain, right: Code(s): M25.511 - Pain in right shoulder (9) Nose pain: Code(s): J34.89 - Other specified disorders of nose and nasal sinuses (10) Gait instability: Code(s): R26.81 - Unsteadiness on feet Orders: Orders XR knee RT 2V Today M25.561 - Pain in right knee XR shoulder RT min 2V Today M25.511 - Pain in right shoulder XR facial bones <3V Today J34.89 - Other specified disorders of nose and nasal sinuses Medications: New [wheelchair] As directed 1 ea 0RF M25.561 - Pain in right knee, R26.81 - Unsteadiness on feet, W19.XXXA - Unspecified fall, initial encounter Coding Level of Care Code Est Pt Level 4 (32092) Diagnoses Essential hypertension I10 Hypertension type: essential hypertension Hypercholesterolemia E78.00 Pulmonary emphysema, unspecified emphysema type J43.9 COPD type: emphysema Emphysema type: unspecified Generalized anxiety disorder F41.1 GERD (gastroesophageal reflux disease) K21.9 Fall W19.XXXA Right knee pain M25.561 Shoulder pain, right M25.511 Nose pain J34.89 Gait instability R26.81
[2023-06-30 15:32] VITALS: BP 112/70; PULSE 71; O2SAT 98; BMI 19.7
== END 2023-06-30 16:13 | disposition home or self-care (01) ==
PROVIDERS: PCP Internal Medicine; Visit Provider Internal Medicine
DX: I10 Essential (primary) hypertension (principal); E78.00 Pure hypercholesterolemia, unspecified; J43.9 Emphysema, unspecified; F41.1 Generalized anxiety disorder; K21.9 Gastro-esophageal reflux disease without esophagitis; W19.XXXA Unspecified fall, initial encounter; M25.561 Pain in right knee; M25.511 Pain in right shoulder; J34.89 Other specified disorders of nose and nasal sinuses; R26.81 Unsteadiness on feet
CPT/HCPCS: 99214

== ENCOUNTER 2023-06-30 16:30 | Outpatient (REF) | payer MEDICARE, SELFPAY ==
--- NOTE | ~2023-06-30 | XR_ITS ---
EXAMINATION: XR FACIAL BONES CLINICAL INFORMATION: Other specific disorders of nose and nasal sinuses, imaging limited due to patient kyphosis and inability to maintain required position, best images obtained per technologist statement. COMPARISON: None available. TECHNIQUE: 4 views of the facial bones were obtained. FINDINGS: Bones are diffusely demineralized. Degenerative changes on very limited images of the cervical spine. Frontal sinuses appear aerated. Hazy opacification in the region of the ethmoid sinuses. Evaluation severely limited for detection of facial bone pathology due to demineralization, overlying bone and soft tissue structures, and limitations of positioning. CT scan of the facial bones/head strongly recommended for further evaluation. XR/XR facial bones <3V IMPRESSION: Hazy opacification in the region of the ethmoid sinuses. Evaluation severely limited for detection of facial bone pathology due to demineralization, overlying bone and soft tissue structures, and limitations of positioning. Dedicated CT scan of the facial bones is strongly recommended for further evaluation as CT scan is much more sensitive for detection of intracranial pathology such as that involving the facial bones/trauma.
--- NOTE | ~2023-06-30 | XR_ITS ---
EXAMINATION: XR RIGHT KNEE XR RIGHT SHOULDER CLINICAL INFORMATION: Pain in right knee. Limited imaging due to patient kyphosis and inability to maintain required imaging, best images possible obtained per technologist statement. COMPARISON: 08/02/2019 Right shoulder. TECHNIQUE: 2 views right knee. 4 views right shoulder. FINDINGS: RIGHT KNEE: Bones are diffusely demineralized. Trace joint effusion. [id number] narrowing of the medial compartment. Abundant chondrocalcinosis in the medial and lateral compartments. Small posterior patellar osteophytes. RIGHT SHOULDER: Right shoulder total prosthesis. Lucency around the distal/humeral tip of the femoral component of the prosthesis. Bones are diffusely demineralized. Severe S-shaped kyphoscoliosis of the partially imaged upper thoracic spine with multilevel degenerative changes. Moderate degenerative changes in the acromioclavicular joint. XR/XR knee RT 2V IMPRESSION: 1. Right shoulder total prosthesis. Lucency around the distal/humeral tip of the femoral component of the prosthesis. 2. Severe S-shaped kyphoscoliosis of the partially imaged upper thoracic spine with multilevel degenerative changes. Dedicated views of the thoracic spine could be considered if there is clinical concern for pathology. 3. Moderate degenerative changes in the acromioclavicular joint. 4. [id number] degenerative changes in the right knee. 5. Bones are diffusely demineralized, severely limiting evaluation, particularly for detection of possible fracture if suspected. CT scan could be considered for further evaluation if there is clinical concern.
--- NOTE | ~2023-06-30 | XR_ITS ---
EXAMINATION: XR RIGHT KNEE XR RIGHT SHOULDER CLINICAL INFORMATION: Pain in right knee. Limited imaging due to patient kyphosis and inability to maintain required imaging, best images possible obtained per technologist statement. COMPARISON: 08/02/2019 Right shoulder. TECHNIQUE: 2 views right knee. 4 views right shoulder. FINDINGS: RIGHT KNEE: Bones are diffusely demineralized. Trace joint effusion. [id number] narrowing of the medial compartment. Abundant chondrocalcinosis in the medial and lateral compartments. Small posterior patellar osteophytes. RIGHT SHOULDER: Right shoulder total prosthesis. Lucency around the distal/humeral tip of the femoral component of the prosthesis. Bones are diffusely demineralized. Severe S-shaped kyphoscoliosis of the partially imaged upper thoracic spine with multilevel degenerative changes. Moderate degenerative changes in the acromioclavicular joint. XR/XR shoulder RT min 2V IMPRESSION: 1. Right shoulder total prosthesis. Lucency around the distal/humeral tip of the femoral component of the prosthesis. 2. Severe S-shaped kyphoscoliosis of the partially imaged upper thoracic spine with multilevel degenerative changes. Dedicated views of the thoracic spine could be considered if there is clinical concern for pathology. 3. Moderate degenerative changes in the acromioclavicular joint. 4. Ebpd-jq-yikuekjo degenerative changes in the right knee. 5. Bones are diffusely demineralized, severely limiting evaluation, particularly for detection of possible fracture if suspected. CT scan could be considered for further evaluation if there is clinical concern.
[2023-06-30 16:50] LABS: MANUAL DIFF FLAG NO
[2023-06-30 17:07] LABS: Basophils Percent Auto 0.3 % (0-2); Eosinophils Absolute Auto 0.1 X10*3/uL (0.0-0.4); Eosinophils Percent Auto 1.4 % (0-4); Hematocrit 40.1 % (37.0-47.0); Hemoglobin 13.4 g/dl (12.0-16.0); Imm Gran Abs Auto 0.01 X10*3/uL (0.00-0.03); Imm Gran Pct Auto 0.2 % (0.0-0.4); Lymphocytes Absolute Auto 1.7 X10*3/uL (1.2-4.9); Lymphocytes Percent Auto 29.4 % (20-40); Mean Corpuscular HGB Conc 33.4 g/dl (31.0-35.0); Mean Corpuscular Hemoglobin 28.9 pg (27.0-33.0); Mean Corpuscular Volume 86.4 fL (80.0-98.0); Mean Platelet Volume 10.1 fL (9.4-12.3); Monocytes Absolute Auto 0.5 X10*3/uL (0.1-1.2); Monocytes Percent Auto 8.5 % (2-11); Neutrophils Absolute Auto 3.5 x10*3/uL (2.0-8.3); Neutrophils Percent Auto 60.2 % (45-73); Platelet Count 219 X10*3/uL (160-400); Red Blood Count 4.64 X10*6/uL (4.20-5.50); White Blood Count 5.8 X10*3/uL (4.8-10.8)
[2023-06-30 17:49] LABS: Alanine Aminotransferase 15 U/L (0-31); Alkaline Phosphatase 73 U/L (39-117); Anion Gap 15 (12-20); Aspartate Amino Transferase 19 U/L (5-31); Bilirubin Total 0.4 mg/dL (0.0-1.0); Blood Urea Nitrogen 17 mg/dL (9-16); Calcium 9.5 mg/dL (8.4-10.2); Carbon Dioxide 25 mmol/L (22-29); Chloride 106 mmol/L (96-108); Cholesterol 143 mg/dL (<200); Estimated Glomerular Filt Rate > 60; Glucose Random 94 mg/dL (60-115); HDL Cholesterol 45 mg/dL (>40); LDL Cholesterol Calculated 75 mg/dL (<100); Potassium 3.5 mmol/L (3.3-5.1); Sodium 142 mmol/L (135-145); Total Protein 7.2 g/dL (6.5-8.0); Triglycerides 117 mg/dL (<150)
[2023-06-30 18:06] LABS: Free T4 (Free Thyroxine) 0.88 ng/dL (0.71-1.85); Thyroid Stimulating Hormone 4.47 uIU/mL (0.32-4.0); Vitamin D 25-OH Total 50.3 ng/mL (>30)
[2023-06-30 18:17] LABS: Folate 13.8 ng/mL (> or = 4.0); Vitamin B12 838 pg/mL (200-900)
== END 2023-06-30 16:31 | disposition home or self-care (01) ==
LOC: HO.LAB 16:30
PROVIDERS: PCP Internal Medicine; Visit Provider Internal Medicine
DX: E78.00 Pure hypercholesterolemia, unspecified (principal); J34.89 Other specified disorders of nose and nasal sinuses; M25.561 Pain in right knee; M25.511 Pain in right shoulder; R30.0 Dysuria
CPT/HCPCS: 36415; 70140; 73030; 73560; 80053; 80061; 82306; 82607; 82746; 84439; 84443; 85025

== ENCOUNTER 2023-07-17 10:31 | Outpatient (AMB) | payer MEDICARE, SELFPAY ==
--- NOTE | 2023-07-17 10:40 | MHC.OFFWIV ---
Intake Vital Signs 07/17/23 10:44 Height 5 ft 4 in Weight 114 lb BMI 19.6 BP 112/66 Blood Pressure Location Lt brachial Position Sitting Respiration 12 Pulse 70 Pulse Source Pulse Oximeter Temp 98.1 F Temp Source Oral Pulse Oximetry (%) 96 Oxygen Delivery Method Room Air Intake Visit Reasons: Right knee pain Intake Note: Pt fell a month ago and has right knee pain. Patient Tobacco Use Status: Never used Tobacco Accompanied by: Daughter Allergies meperidine [Demerol] Allergy (Unknown, Verified 07/17/23 10:43) Unknown morphine [MORPHINE] Allergy (Unknown, Verified 07/17/23 10:43) UNKNOWN Sulfa (Sulfonamide Antibiotics) Allergy (Unknown, Verified 07/17/23 10:43) unknown sulfur Allergy (Unknown, Verified 07/17/23 10:43) Unknown amoxicillin [From Augmentin] Adverse Reaction (Intermediate, Verified 07/17/23 10:43) C diff clavulanic acid [From Augmentin] Adverse Reaction (Intermediate, Verified 07/17/23 10:43) C diff Medication List - Last Reconciled 07/17/23 by Grace Newby PA-C acetaminophen 325 mg PO QID PRN albuterol sulfate 90 mcg/actuation 2 puffs PO Q4H PRN alprazolam 0.5 mg PO BID amlodipine 10 mg PO DAILY ascorbic acid (vitamin C) 250 mg PO DAILY atorvastatin 10 mg PO DAILY cholecalciferol (vitamin D3) 25 mcg PO DAILY 90 days cyclobenzaprine 5 mg PO TID PRN fexofenadine 180 mg PO DAILY PRN fluticasone propionate 50 mcg/actuation (Flonase Allergy Relief) 2 sprays intranasal DAILY lisinopril-hydrochlorothiazide 20-12.5 mg 1 tab PO DAILY mometasone 0.1% 1 appl topical BID PRN multivitamin 1 tab PO DAILY omeprazole 20 mg PO DAILY sertraline 200 mg (2 x 100 mg) PO DAILY simethicone 80 mg PO BID-QID PRN [wheelchair As directed] HPI Right knee pain HPI Details Patient is an 83-year-old female with a significant past medical history of memory impairment, gait instability, COPD, hypertension , hyperlipidemia, and osteoporosis presenting today with complaints of right knee pain and instability. Her symptoms started about a month ago after she fell in the bathroom. She was seen by her PCP and did have an x-ray of her knee. She states that over the last month the knee pain has gotten worse. She is unable to weightbear. It feels like it is going to give out. Initially there was swelling but that has since resolved. Her daughter is here today with her and states that she had to purchase her a wheelchair which will be here later today because the patient is having a hard time walking at all especially with her walker. She has never had surgery or previous trauma to the knee. She can not tell me exactly how she fell or if she twisted it. [facility] Medical History Tiredness Fracture, humerus Shoulder impingement syndrome Tubular adenoma of colon Severe scoliosis COPD (chronic obstructive pulmonary disease) Hypercholesterolemia Hypertension Surgical History History of colonoscopy History of removal of ovarian cyst History of tonsillectomy S/P STORM-BSO Paraesophageal hernia Family History Father CVD (cardiovascular disease) Heart failure Mother Cervical cancer Sister In good health Social History Housing: House Alcohol intake: never Patient Tobacco Use Status: Never used Tobacco Tobacco use type: Cigarette e-Cigarette/Vaping Use: Never Used Second Hand Smoke Exposure: No service: No Current occupational status: retired Cognitive needs: No Hearing needs: No Vision needs: Yes Physical Exam Vital Signs: Last Vital Signs Temp 98.1 F 07/17/23 10:44 Pulse 70 07/17/23 10:44 Resp 12 07/17/23 10:44 BP 112/66 07/17/23 10:44 Pulse Ox 96 07/17/23 10:44 Oxygen Delivery Method Room Air 07/17/23 10:44 BMI result Body Mass Index 19.6 Resp Auscultation: clear to auscultation bilaterally Cardio Rate: regular rate Rhythm: regular rhythm Heart sounds: S1 normal heart sound present and S2 normal heart sound present Skin General skin exam: no rashes or lesions noted Extrem Other: There is tenderness to palpation throughout the knee with increased discomfort along the anterior superior aspect. The exam was done with the patient sitting in a chair because she is unable to get onto the exam table. She is unable to fully extend the lower leg due to pain. Flexion is intact. The anterior drawer test does not elicit discomfort however the posterior drawer test elicits discomfort. There is pain with valgus and varus stress. Results Reviewed Results Reviewed: RIGHT KNEE: Bones are diffusely demineralized. Trace joint effusion. Ewer-mh-xigtsptp narrowing of the medial compartment. Abundant chondrocalcinosis in the medial and lateral compartments. Small posterior patellar osteophytes. Assessment & Plan Assessment & Plan (1) Instability of right knee joint: Code(s): M25.361 - Other instability, right knee Plan: I have referred her to [facility]. Phone number provided. We will order an MRI. Advised to rest the injured area. We will follow up pending test results. She will follow up sooner if anything worsens or changes. Patient and daughter understand and agree with this plan. Orders: Orders MR knee RT wo con Today M25.361 - Other instability, right knee, W19.XXXA - Unspecified fall, initial encounter, Y92.009 - Unspecified place in unspecified non-institutional (private) residence as the place of occurrence of the external cause Referrals Orthopedics Referral M25.361 - Other instability, right knee Coding Level of Care Code Est Pt Level 4 (99327) Diagnoses Instability of right knee joint M25.361
[2023-07-17 10:44] VITALS: BP 112/66; PULSE 70; RESP 12; TEMP 36.7; O2SAT 96; BMI 19.6
== END 2023-07-17 11:30 | disposition home or self-care (01) ==
PROVIDERS: PCP Internal Medicine; Visit Provider Physician Assistant
DX: M25.361 Other instability, right knee (principal)
CPT/HCPCS: 99214

== ENCOUNTER 2023-08-25 06:06 | Emergency (ER) | payer MEDICARE, SELFPAY ==
--- NOTE | 2023-08-25 | ECG_ITS ---
Test Reason : fall Blood Pressure : / mmHG Vent. Rate : 071 BPM Atrial Rate : 071 BPM P-R Int : 178 ms QRS Dur : 092 ms QT Int : 414 ms P-R-T Axes : 035 031 033 degrees QTc Int : 449 ms Normal sinus rhythm Normal ECG When compared with ECG of 30-JUL-2022 15:55, Premature atrial complexes are no longer Present Referred By: Generic ED Physician Electronically Signed By:RADHA WILLS MD
--- NOTE | ~2023-08-25 | CT_ITS ---
EXAMINATION: CT HEAD W/O IV CONTRAST CT FACIAL BONES WITHOUT IV CONTRAST CT CERVICAL SPINE W/O IV CONTRAST CLINICAL INFORMATION: History of fall, facial trauma. Head and neck trauma. COMPARISON: 09/04/2022. Brain MRI from 01/06/2019. TECHNIQUE: Head - Contiguous axial imaging of the head was performed from the skull base to the vertex without the administration of intravenous contrast, and axial images are reconstructed at 2 mm and 5 mm slice thickness. Cervical spine and facial bones - Volumetric, helical CT acquisitions of the cervical spine and facial bones obtained without contrast; in addition to the standard set of axial images, multiplanar reformatted images were provided in the coronal and sagittal imaging planes. This CT examination was performed using dose optimization techniques as appropriate, variously including the following: *Automated exposure control *Adjustment of mA and/or kV according to patient size (this includes techniques or standardized protocols for targeted exams where dose is matched to indication/reason for exam; i.e. extremities or head) *Use of iterative reconstruction technique DLP: 1393 mGy-cm (total) FINDINGS: HEAD: No evidence of intracranial hemorrhage, major vascular territory infarction, focal mass effect or midline shift. Olmedo to white matter differentiation is preserved. Mild parenchymal volume loss with commensurate prominence of ventricles and sulci. No hydrocephalus or extra-axial fluid collections. Patchy hypoattenuation within the supratentorial white matter is compatible with sequela of mild microangiopathy. The calvarium is intact and the mastoid air cells and middle ear cavities are clear. There is hyperostosis frontalis interna. The mastoid air cells are well aerated. FACIAL BONES: The globes and orbital velazquez, including lamina papyracea, are intact. The orbital apex, optic canals, and retrobulbar fat planes are normal. 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 The maxilla, mandible, nasal bones, pterygoid plates and zygomatic arches are intact. There is mucoperiosteal thickening and partial opacification of the right sphenoid and maxillary sinuses. There are some chronically hyperdense, inspissated secretions in the right maxillary sinus. A few small foci of soft tissue gas are present within subcutaneous tissue compartment anterolateral to the left zygomatic arch and superolateral orbit. There is no discrete measurable fluid collection within the face. CERVICAL SPINE: Bones are diffusely osteopenic The skull base, C1 and C2 lateral masses and atlantodental articulation are intact. Calcium deposition (likely calcium pyrophosphate dihydrate crystal deposition) along the transverse ligament posterior to the dens. No dens fracture. The vertebral body heights are maintained. No fractures in the anterior or posterior elements. No prevertebral soft tissue edema or hematoma. Multilevel facet osteoarthritis and small anterior vertebral osteophytes at multiple levels. There is vacuum disc phenomenon at C5-C6, C6-C7 and T1-2. Minimal degenerative anterolisthesis at C5-C6, C6-C7 and C7-T1. No evidence of any significant osseous stenosis of the cervical spinal canal. Lung apices are unremarkable. CT/CT cervical spine wo IV con IMPRESSION: * No intracranial hemorrhage or other acute intracranial pathology. * No fracture or traumatic subluxation in the degenerated cervical spine. * A few small foci of soft tissue gas are present in the left face. However, there is no soft tissue hematoma or acute maxillofacial bone injury. * Chronic right sphenoid and right maxillary sinusitis.
[2023-08-25 06:13] VITALS: BP 140/71; PULSE 64; O2SAT 97
[2023-08-25 06:18] VITALS: BP 153/65; PULSE 73; RESP 20; TEMP 36.3; O2SAT 96; BMI 23.4
[2023-08-25 07:00] LABS: MANUAL DIFF FLAG NO
[2023-08-25 07:01] LABS: Basophils Percent Auto 0.3 % (0-2); Eosinophils Absolute Auto 0.1 X10*3/uL (0.0-0.4); Hematocrit 38.3 % (37.0-47.0); Hemoglobin 13.2 g/dl (12.0-16.0); Imm Gran Abs Auto 0.04 X10*3/uL (0.00-0.03); Imm Gran Pct Auto 0.6 % (0.0-0.4); Lymphocytes Absolute Auto 1.1 X10*3/uL (1.2-4.9); Lymphocytes Percent Auto 16.4 % (20-40); Mean Corpuscular HGB Conc 34.5 g/dl (31.0-35.0); Mean Corpuscular Hemoglobin 29.8 pg (27.0-33.0); Mean Corpuscular Volume 86.5 fL (80.0-98.0); Mean Platelet Volume 9.5 fL (9.4-12.3); Monocytes Absolute Auto 0.5 X10*3/uL (0.1-1.2); Monocytes Percent Auto 7.6 % (2-11); Neutrophils Absolute Auto 5.1 x10*3/uL (2.0-8.3); Neutrophils Percent Auto 74.1 % (45-73); Platelet Count 161 X10*3/uL (160-400); Red Blood Count 4.43 X10*6/uL (4.20-5.50); Red Cell Distribution Width 13.1 % (11.0-16.0); White Blood Count 6.9 X10*3/uL (4.8-10.8)
--- NOTE | 2023-08-25 07:10 | ED_ITS ---
HPI - Fall General Chief Complaint: Fall Stated Complaint: fall Time Seen by Provider: 08/25/23 06:59 Source: patient, EMS and old records reviewed Mode of arrival: EMS Limitations: no limitations History of Present Illness ED Provider: MARY KULKARNI Narrative: 83 yo female with PMH of anxiety, GERD, cognitive impairment, osteoporosis, HTN, HLD, COPD not on thinners states she went to use the bathroom this AM isn't sure what happened had no preceding symptoms but fell and hit face on the floor no LOC called for help. Injured lip and left cheek. R front upper tooth. Denies any other injuries. 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) Fall from: standing Fall witnessed: no Place fall occurred: home Loss of consciousness: none Prolonged down time: no Symptoms prior to fall: none Context: other Location of injury: head, face and mouth Severity: mild Quality: dull Associated symptoms (after fall): denies Related Data Home Medications ?Medication ?Instructions ?Recorded ?Confirmed acetaminophen 325 mg capsule 325 mg PO QID PRN 11/25/19 07/17/23 simethicone 80 mg tablet 80 mg PO BID-QID PRN 11/25/19 07/17/23 Previous Rx's ?Medication ?Instructions ?Recorded albuterol sulfate 90 mcg/actuation 2 puff PO Q4H PRN bronchospasm 04/05/22 aerosol inhaler #8.5 grams fexofenadine 180 mg tablet 180 mg PO DAILY PRN allergy 04/05/22 symptoms #90 tabs ascorbic acid (vitamin C) 250 mg 250 mg PO DAILY #30 tabs 05/10/22 tablet cholecalciferol (vitamin D3) 25 25 mcg PO DAILY 90 days #90 caps 07/04/22 mcg (1,000 unit) capsule multivitamin 1 tab PO DAILY #90 tabs 07/04/22 mometasone 0.1 % topical cream 1 appl topical BID PRN skin 09/24/22 irritation #45 grams omeprazole 20 mg capsule,delayed 20 mg PO DAILY #90 caps 01/07/23 release cyclobenzaprine 5 mg tablet 5 mg PO TID PRN muscle spasm #60 01/27/23 tabs alprazolam 0.5 mg tablet 0.5 mg PO BID #180 tabs 04/01/23 amlodipine 10 mg tablet 10 mg PO DAILY #90 tabs 04/08/23 atorvastatin 10 mg tablet 10 mg PO DAILY #90 tabs 04/09/23 lisinopril 20 1 tab PO DAILY #90 tabs 04/09/23 mg-hydrochlorothiazide 12.5 mg tablet sertraline 100 mg tablet 200 mg (2 x 100 mg) PO DAILY #180 04/09/23 tabs fluticasone propionate 50 2 spray intranasal DAILY #15.8 mL 06/18/23 mcg/actuation nasal spray,suspension (Flonase Allergy Relief) wheelchair #1 ea 07/15/23 cephalexin 250 mg capsule 250 mg PO BID #6 caps 08/25/23 Allergies Allergy/AdvReac Type Severity Reaction Status Date / Time meperidine [Demerol] Allergy Unknown Unknown Verified 08/25/23 06:20 morphine [MORPHINE] Allergy Unknown UNKNOWN Verified 08/25/23 06:20 Sulfa (Sulfonamide Allergy Unknown unknown Verified 08/25/23 06:20 Antibiotics) sulfur Allergy Unknown Unknown Verified 08/25/23 06:20 amoxicillin [From Augmentin] AdvReac Intermediate C diff Verified 08/25/23 06:20 clavulanic acid AdvReac Intermediate C diff Verified 08/25/23 06:20 [From Augmentin] Review of Systems 2 Review of Systems: Constitutional : No Fever, No Chills, No Fatigue ENT/Mouth : No sore throat, No Rhinorrhea, pos lip laceration, pos dental fracture Eyes: No Eye Pain, No Swelling, No Redness Cardiovascular : No Chest Pain, No SOB, No Dyspnea on Exertion Respiratory : No Cough, No Sputum Gastrointestinal : No Nausea, No Vomiting, No Diarrhea, No abdominal Pain Genitourinary : No Dysuria, No Urinary Frequency, No Hematuria, Musculoskeletal : No joint pain, No Myalgias, No Joint Swelling Skin : No Skin Lesions, No rash, pos lacerations Neuro : No Weakness, No Numbness, No Dizziness, positive Headache Psych : No Anxiety/Panic, No Depression All other systems reviewed and are negative [facility] Past Medical History Attestation statement: The following information was validated with the patient. Source: old records reviewed Medical History Tiredness Fracture, humerus Shoulder impingement syndrome Tubular adenoma of colon Severe scoliosis COPD (chronic obstructive pulmonary disease) Hypercholesterolemia Hypertension Surgical History History of colonoscopy History of removal of ovarian cyst History of tonsillectomy S/P STORM-BSO Paraesophageal hernia Family History Family History Father CVD (cardiovascular disease) Heart failure Mother Cervical cancer Sister In good health Social History Social History Housing: House Alcohol intake: never Patient Tobacco Use Status: Never used Tobacco Tobacco use type: Cigarette Smoked in Last 30 Days: No e-Cigarette/Vaping Use: Never Used Second Hand Smoke Exposure: No Use of substances other than those prescribed or required for medical reasons: No Advance Directives: No Advance Directives Information Provided: No Do you have a plan to hurt others: No Plan service: No Current occupational status: retired Cognitive needs: No Hearing needs: No Vision needs: Yes Physical Exam 2 Vital Signs: Vital Signs: Last Vital Signs Temp 97.4 F 08/25/23 06:18 Pulse 75 08/25/23 10:15 Resp 19 08/25/23 10:15 BP 143/63 H 08/25/23 10:15 Pulse Ox 94 08/25/23 10:15 O2 Del Method Room Air 08/25/23 10:15 BMI result Body Mass Index 23.4 Appearance: Alert. Oriented X3. No acute distress. Eyes: Pupils equal, round and reactive to light. ENT: L cheek 2cm superficial laceration, lower left lip is lacerated macerated does not cross vermilion border, R upper front incision fractured down to the pulp Neck: Normal inspection. Neck supple. CVS: Normal heart rate and rhythm. Pulses normal. Respiratory: No respiratory distress. Breath sounds normal. Abdomen: Soft and nontender. Skin: Skin warm and dry. Normal skin color. Normal skin turgor. Extremities: No lower extremity edema. no pain with ROM of extremities Neuro: Oriented X 3. No motor deficit. No sensory deficit. Course Course Course Narrative: 1312-- Cheek and lip lacerations repaired with sutures following lido injection. Patient tolerated well. bleeding controlled. Patient advised to return for facial suture removal in 7 days. both patient and daughter verbalize understanding. keflex sent to pharmacy. given tooth fracture, patient advised to follow up with [facility]. referral provided. tdap updated. Patient has remained stable throughout ED visit today. Discussed worrisome signs and symptoms and when to return to the ED. All questions answered at this time. Patient and daughter are agreeable with disposition and patient is stable for discharge. Medications Administered Discontinued Medications Generic Name Dose Route Start Last Admin Trade Name Sydnie PRN Reason Stop Dose Admin Acetaminophen 975 mg 08/25/23 07:15 08/25/23 07:29 Acetaminophen 325 Mg Tablet PO 08/25/23 07:16 975 mg ONCE ONE Administration Lidocaine HCl 5 ml 08/25/23 07:06 08/25/23 10:08 Lidocaine Hcl 1 % Mpf 5 Ml Vial SUBCUT 08/25/23 07:07 5 ml ONCE ONE Administration Lidocaine HCl 5 ml 08/25/23 07:07 08/25/23 10:09 Lidocaine Hcl 1 % Mpf 5 Ml Vial SUBCUT 08/25/23 07:08 5 ml ONCE ONE Administration Lorazepam 0.5 mg 08/25/23 10:02 08/25/23 10:08 Lorazepam 0.5 Mg Tablet PO 08/25/23 10:03 0.5 mg ONCE ONE Administration Procedures Laceration Laceration 1: Site: face Side (If applicable): left Size (cm): 1.5 Description: linear Depth: simple, single layer Local Anesthetic: lidocaine 1% Amount of anesthesia used (mL): 5 Pre-repair: wound explored, irrigated extensively and deep structures intact Skin layer closed with: nylon Size (cm): 5-0 Number of sutures: 3 Technique: simple, interrupted Laceration 2: Site: lip (bottom) Size (cm): 5 Description: irregular Depth: simple, single layer Local Anesthetic: lidocaine 1% Amount of anesthesia used (mL): 5 Pre-repair: wound explored, irrigated extensively, deep structures intact and extensive debridement Skin layer closed with: other (chromic gut) Size (cm): 6-0 Number of sutures: 6 Technique: simple, interrupted Medical Decision Making Medical Decision Making MDM Narrative: 83 yo female with PMH of anxiety, GERD, cognitive impairment, osteoporosis, HTN, HLD, COPD not on thinners here with fall but denies CP/SOB, dizziness unsure what happened no LOC at this time back to baseline has injuries to mouth and cheek laceration - will obtain labs, EKG, CT head/facial and cspine. Planned suture repair of lip and cheek. Atypical for ACS/PE given lack of CP/SOB. Differential Diagnosis Differential Diagnoses: The differential diagnosis associated with the presentation includes fracture, laceration, fall, contusion, head injury Admission/Observation Consideration of admission/observation: Escalation of care including admission/observation considered Lab Data MDM Lab Attestation statement: I reviewed the patient's lab results. trop flat x 2 08/25/23 06:56 08/25/23 06:56 Labs: Lab Results 08/25/23 08/25/23 Range/Units 06:56 10:12 WBC 6.9 (4.8-10.8) X10*3/uL RBC 4.43 (4.20-5.50) X10*6/uL Hgb 13.2 (12.0-16.0) g/dl Hct 38.3 (37.0-47.0) % MCV 86.5 (80.0-98.0) fL MCH 29.8 (27.0-33.0) pg MCHC 34.5 (31.0-35.0) g/dl RDW 13.1 (11.0-16.0) % Plt Count 161 D (160-400) X10*3/uL MPV 9.5 (9.4-12.3) fL Immature Gran % (Auto) 0.6 H (0.0-0.4) % Neut % (Auto) 74.1 H (45-73) % Lymph % (Auto) 16.4 L (20-40) % [place] % (Auto) 7.6 (2-11) % Eos % (Auto) 1.0 (0-4) % Baso % (Auto) 0.3 (0-2) % Lymph # (Auto) 1.1 L (1.2-4.9) X10*3/uL [place] # (Auto) 0.5 (0.1-1.2) X10*3/uL Eos # (Auto) 0.1 (0.0-0.4) X10*3/uL Baso # (Auto) 0.0 (0.0-0.2) X10*3/uL Abs Immat Gran (auto) 0.04 H (0.00-0.03) X10*3/uL Absolute Neuts (auto) 5.1 (2.0-8.3) x10*3/uL Absolute Nucleated RBC 0.000 (0.0-0.012) X10*3/uL Nucleated RBC % (auto) 0.0 (0.0-0.2) /100WBC Sodium 142 (135-145) mmol/L Potassium 3.6 (3.3-5.1) mmol/L Chloride 107 (96-108) mmol/L Carbon Dioxide 26 (22-29) mmol/L Anion Gap 13 (12-20) BUN 18 H (9-16) mg/dL Creatinine 0.73 (0.5-1.4) mg/dL Estim Creat Clear Calc 41.9 Estimated GFR > 60 Random Glucose 101 (60-115) mg/dL Calcium 9.3 (8.4-10.2) mg/dL Troponin I High Sens < 2.7 < 2.7 (<3.5-17.0) ng/L Independent Interpretation I performed an independent interpretation of an: EKG and CT Scan (no trauma) Interpretation: Rate: 71 Rhythm: NSR Seaview: normal Normal P waves. Normal OTTO. Normal QRS complex. ST T wave : normal no ALAN qTC: 449 prior studies: no acute ischemia The study has been interpreted contemporaneously by me. . Radiology Impression Discussion of test interpretation with radiology: I have reviewed the radiologist's reading. Independent Historian Clinical information obtained from an independent historian. History obtained from or confirmed by: EMS External Record Review External record reviewed: Inpatient record Discharge Plan Discharge Clinical Impression: Fracture of tooth Qualifiers: Encounter type: initial encounter Fracture type: open Qualified Code(s): S 02.5XXB - Fracture of tooth (traumatic), initial encounter for open fracture Fall Qualifiers: Encounter type: initial encounter Qualified Code(s): W19.XXXA - Unspecified fall, initial encounter Laceration of lip Qualifiers: Encounter type: initial encounter Qualified Code(s): S01.511A - Laceration without foreign body of lip, initial encounter Face lacerations Qualifiers: Encounter type: initial encounter Qualified Code(s): S01.81XA - Laceration without foreign body of other part of head, initial encounter Head injury Qualifiers: Encounter type: initial encounter Qualified Code(s): S09.90XA - Unspecified injury of head, initial encounter Patient Disposition: Home, Self-Care Instructions: Fall Prevention for Older Adults (ED), Head Injury (ED), Acute Dental Trauma (ED), Facial Laceration (ED) Additional Instructions: labs reassuring, CT scan negative of head, cervical spine and facial bones you need to see a dentist as soon as possible across the street they are taking new patients [address] [facility] [phone] call as soon as possible take your tetanus was updated today. antibiotics to prevent infection On cephalexin, softer bowel movements are to be expected. Call your provider if you move your bowels more than 4 times a day, your bowel movements are almost all liquid, or you get a rash.? take a probiotic while on antibiotic given c diff. lip sutures will dissolve facial sutures (3 total) remove in 7 days - return for redness, swelling, yellow drainage, fevers Prescriptions: New cephalexin 250 mg capsule 250 mg PO BID Qty: 6 0RF No Action albuterol sulfate 90 mcg/actuation HFA aerosol inhaler 2 puff PO Q4H PRN (Reason: bronchospasm) Qty: 8.5 0RF fexofenadine 180 mg tablet 180 mg PO DAILY PRN (Reason: allergy symptoms) Qty: 90 3RF ascorbic acid (vitamin C) 250 mg tablet 250 mg PO DAILY Qty: 30 0RF multivitamin Tablet 1 tab PO DAILY Qty: 90 1RF cholecalciferol (vitamin D3) 25 mcg (1,000 unit) capsule 25 mcg PO DAILY 90 Days Qty: 90 1RF omeprazole 20 mg capsule,delayed release(DR/EC) 20 mg PO DAILY Qty: 90 2RF cyclobenzaprine 5 mg tablet 5 mg PO TID PRN (Reason: muscle spasm) Qty: 60 3RF alprazolam 0.5 mg tablet 0.5 mg PO BID Qty: 180 0RF Rx Instructions: Takes 1/2 a tab in the AM, full tab in the PM amlodipine 10 mg tablet 10 mg PO DAILY Qty: 90 3RF lisinopril-hydrochlorothiazide 20-12.5 mg tablet 1 tab PO DAILY Qty: 90 3RF atorvastatin 10 mg tablet 10 mg PO DAILY Qty: 90 3RF sertraline 100 mg tablet 200 mg PO DAILY Qty: 180 2RF fluticasone propionate [Flonase Allergy Relief] 50 mcg/actuation spray,suspension 2 spray intranasal DAILY Qty: 15.8 1RF Rx Instructions: administer into each nostril (DME) wheelchair See Rx Instructions .Route .MEDSUPPLY Qty: 1 0RF Rx Instructions: As directed acetaminophen 325 mg capsule 325 mg PO QID PRN simethicone 80 mg tablet 80 mg PO BID-QID PRN mometasone 0.1 % cream 1 appl topical BID PRN (Reason: skin irritation) Qty: 45 0RF Rx Instructions: 1-2 week only Print Language: [place] Citizen
[2023-08-25 07:13] LABS: Anion Gap 13 (12-20); Blood Urea Nitrogen 18 mg/dL (9-16); Calcium 9.3 mg/dL (8.4-10.2); Carbon Dioxide 26 mmol/L (22-29); Chloride 107 mmol/L (96-108); Creatinine Clr Calc Pharmacy 41.9; Estimated Glomerular Filt Rate > 60; Glucose Random 101 mg/dL (60-115); Potassium 3.6 mmol/L (3.3-5.1); Sodium 142 mmol/L (135-145)
[2023-08-25] MEDS: Acetaminophen 325 MG TABLET 975 MG PO (07:29)
--- NOTE | 2023-08-25 07:43 | PC.NURSE ---
Lidocaine left at bedside for provider
[2023-08-25 07:49] LABS: Troponin-I High Sensitivity < 2.7 ng/L (<3.5-17.0)
[2023-08-25] MEDS: LORazepam 0.5 MG TABLET PO (10:08)
[2023-08-25] MEDS: Lidocaine HCl 1 % MPF 5 ML VIAL SUBCUT ×2 (10:08→10:09)
[2023-08-25 10:15] VITALS: BP 143/63; PULSE 75; RESP 19; O2SAT 94
[2023-08-25 10:46] LABS: Troponin-I High Sensitivity < 2.7 ng/L (<3.5-17.0)
[2023-08-25] MEDS: Diphth,Pertus(ACell),Tet Adult 0.5 ML SYRINGE IM (13:47)
[2023-08-25 13:52] VITALS: BP 155/63; PULSE 77; RESP 16; O2SAT 95
[2023-08-25 14:02] VITALS: BP 155/63; PULSE 77; RESP 16; TEMP 36.3; O2SAT 95
== END 2023-08-25 14:03 | disposition home or self-care (01) ==
PROVIDERS: Emergency Provider Emergency Medicine; PCP Internal Medicine
DX: S01.511A Laceration without foreign body of lip, initial encounter (principal); S02.5XXA Fracture of tooth (traumatic), initial encounter for closed fracture; S01.81XA Laceration without foreign body of other part of head, initial encounter; R51.9 Headache, unspecified; M54.2 Cervicalgia; I10 Essential (primary) hypertension; J44.9 Chronic obstructive pulmonary disease, unspecified; X58.XXXA Exposure to other specified factors, initial encounter; W01.10XA Fall on same level from slipping, tripping and stumbling with subsequent striking against unspecified object, initial encounter; Y93.9 Activity, unspecified; Y92.89 Other specified places as the place of occurrence of the external cause; Y99.8 Other external cause status; Z79.899 Other long term (current) drug therapy; Z23 Encounter for immunization
CPT/HCPCS: 12053; 36415; 70450; 70486; 72125; 80048; 84484; 85025; 90471; 90715; 93005; 96372; 99284; 99285

== ENCOUNTER → 2023-08-25 06:45 | Outpatient (BNV) | payer MEDICARE, SELFPAY | PROVIDERS: Emergency Provider Emergency Medicine; PCP Internal Medicine; Visit Provider Internal Medicine Cardiovascular Disease | DX: I10 Essential (primary) hypertension (principal); E78.5 Hyperlipidemia, unspecified | CPT/HCPCS: 93010 ==

== ENCOUNTER 2023-09-01 12:57 | Outpatient (AMB) | payer MEDICARE, SELFPAY ==
--- NOTE | 2023-09-01 12:59 | MHC.PC.OV ---
Vital Signs 09/01/23 13:00 Height 5 ft Weight 111 lb 8.862 oz BMI 21.8 BP 116/64 Blood Pressure Location Lt brachial Position Sitting Pulse 66 Pulse Source Pulse Oximeter Temp 98.4 F Temp Source Oral Pulse Oximetry (%) 96 Oxygen Delivery Method Room Air Intake Visit Reasons: [facility] 08/24 fall/ stich removal Intake Note: Patient is here for hospital discharge follow up. 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 Allergies meperidine [Demerol] Allergy (Unknown, Verified 09/01/23 13:00) Unknown morphine [MORPHINE] Allergy (Unknown, Verified 09/01/23 13:00) UNKNOWN Sulfa (Sulfonamide Antibiotics) Allergy (Unknown, Verified 09/01/23 13:00) unknown sulfur Allergy (Unknown, Verified 09/01/23 13:00) Unknown amoxicillin [From Augmentin] Adverse Reaction (Intermediate, Verified 09/01/23 13:00) C diff clavulanic acid [From Augmentin] Adverse Reaction (Intermediate, Verified 09/01/23 13:00) C diff Tobacco use date assessed: 06/30/23 Fall risk assessment: No Falls in past year Last assessed Fall Risk: 09/01/23 Dental Screening Dental Screen Date: 03/28/23 HPI [facility] 08/24 fall/ stich removal HPI Details 83-year-old female with hypertension hypercholesterolemia COPD generalized anxiety disorder GERD last seen in June 2023. Patient has gait instability also. review of the notes ER visit in August 25 2023 for a fall went to the bathroom hit face on the floor deny any loss of consciousness patient has injured lip and left cheek had left cheek 2 cm laceration lower lip left laceration and right upper front fracture patient was prescribed Keflex PFSH Medical History Tiredness Fracture, humerus Shoulder impingement syndrome Tubular adenoma of colon Severe scoliosis COPD (chronic obstructive pulmonary disease) Hypercholesterolemia Hypertension Surgical History History of colonoscopy History of removal of ovarian cyst History of tonsillectomy S/P STORM-BSO Paraesophageal hernia Family History Father CVD (cardiovascular disease) Heart failure Mother Cervical cancer Sister In good health Social History Housing: House Alcohol intake: never Patient Tobacco Use Status: Never used Tobacco Tobacco use type: Cigarette e-Cigarette/Vaping Use: Never Used Second Hand Smoke Exposure: No service: No Current occupational status: retired Cognitive needs: No Hearing needs: No Vision needs: Yes Questionnaire Thrive Questionnaire Date Thrive assessed: 03/28/23 AUDIT C Alcohol Use Questionnaire (AUDIT-C) 1. How often do you have a drink containing alcohol?: Never 2. How many drinks containing alcohol do you have on a typical day when you are drinking?: 1 or 2 3. How often do you have six or more drinks on one occasion?: Never Total Score: 0 Score Reviewed/Action Taken: No RENALDO-7 AMB Questionnaire RENALDO-7 Date RENALDO - 7 assessed: 03/28/23 Source: Developed by Drs. Cody Yusuf, Virginia Avila, Johann Khoury and colleagues, with an educational obed from [employer]. Physical exam (Primary Care) Vital Signs: Last Vital Signs Temp 98.4 F 09/01/23 13:00 Pulse 66 09/01/23 13:00 BP 116/64 09/01/23 13:00 Pulse Ox 96 09/01/23 13:00 Oxygen Delivery Method Room Air 09/01/23 13:00 BMI result Body Mass Index 21.8 Tobacco/Smoking Status: Tobacco use Status Tobacco use date assessed 06/30/23 09/01/23 13:01 Patient Tobacco Use Status Never used Tobacco 09/01/23 13:01 Tobacco use type Cigarette 09/01/23 13:01 e-Cigarette/Vaping Use Never Used 09/01/23 13:01 Thrive Assessment: Date of Thrive Assessment Date Thrive assessed 03/28/23 09/01/23 13:01 Const General: alert; No acute distress [facility] Head images: 1. Patient left cheek 2. Whitish discoloration on the upper lip with swelling noted also on fracture of the incisor Eyes Conjunctivae: conjunctivae normal Resp Auscultation: clear to auscultation bilaterally Cardio Rate: regular rate Rhythm: regular rhythm GI Inspection: Yes normal to inspection Extrem General: Yes normal to inspection and No edema Assessment and Plan Assessment & Plan (1) Fall: Comment: June 21, 2023, August 2023 Code(s): W19.XXXA - Unspecified fall, initial encounter Plan: will be having PT soon (2) Facial laceration: Comment: August 2023 Code(s): S01.81XA - Laceration without foreign body of other part of head, initial encounter Plan: L cheek - 3 sutures taken out. (3) Tooth fracture: Code(s): S02.5XXA - Fracture of tooth (traumatic), initial encounter for closed fracture Plan: will be seeing dentist Medications: Discontinued cyclobenzaprine Discontinued Reason: Doctor's Order 5 mg PO TID PRN 60 tabs 3RF muscle spasm Coding Level of Care Code Est Pt Level 3 (28357) Diagnoses Fall W19.XXXA Facial laceration S01.81XA Tooth fracture S02.5XXA
[2023-09-01 13:00] VITALS: BP 116/64; PULSE 66; TEMP 36.9; O2SAT 96; BMI 21.8
== END 2023-09-01 13:26 | disposition home or self-care (01) ==
PROVIDERS: PCP Internal Medicine; Visit Provider Internal Medicine
DX: S01.81XA Laceration without foreign body of other part of head, initial encounter (principal); W19.XXXA Unspecified fall, initial encounter; S02.5XXA Fracture of tooth (traumatic), initial encounter for closed fracture
CPT/HCPCS: 99213

== ENCOUNTER 2023-11-18 15:22 | Outpatient (AMB) | payer MEDICARE, SELFPAY ==
--- NOTE | 2023-11-18 15:35 | A.OFFPC_ITS ---
Vital Signs 11/18/23 15:37 Height 5 ft Weight 113 lb 4 oz BMI 22.1 BP 110/72 Blood Pressure Location Lt brachial Position Sitting Pulse 71 Pulse Source Pulse Oximeter Pulse Oximetry (%) 96 Oxygen Delivery Method Room Air Intake Visit Reasons: RENALDO Intake Note: Patient is here to follow up on RENALDO. 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 Hand Box Coverer: Present Accompanied by: Daughter Allergies meperidine [Demerol] Allergy (Unknown, Verified 11/18/23 15:36) Unknown morphine [MORPHINE] Allergy (Unknown, Verified 11/18/23 15:36) UNKNOWN Sulfa (Sulfonamide Antibiotics) Allergy (Unknown, Verified 11/18/23 15:36) unknown sulfur Allergy (Unknown, Verified 11/18/23 15:36) Unknown amoxicillin [From Augmentin] Adverse Reaction (Intermediate, Verified 11/18/23 15:36) C diff clavulanic acid [From Augmentin] Adverse Reaction (Intermediate, Verified 11/18/23 15:36) C diff Tobacco use date assessed: 11/18/23 Fall risk assessment: No Falls in past year Last assessed Fall Risk: 11/18/23 Dental Screening Dental Screen Date: 03/28/23 HPI RENALDO HPI Details 83-year-old female with hypertension hyp ercholesterolemia COPD severe scoliosis generalized anxiety disorder GERD with cognitive impairment coming in for follow-up. Had a fall in August with facial laceration in 2 fracture. Patient is here for follow-up.. Review of the notes July 2023 had an MRI of the knee showing impaction bone contusions on the lateral femoral condyle and anterior aspect of the lateral tibial plateau and the lateral aspect of the patella. No dislocation moderate thinning of the patellar cartilage and femoral trochlear cartilage. Small joint effusion, small and moderate prepatellar bursitis horizontal oblique tear on the inferior articular surface of the free edge of the posterior horn of the medial meniscus muscle sprain of the soleus muscle mild ACL sprain PFSH Medical History Tiredness Fracture, humerus Shoulder impingement syndrome Tubular adenoma of colon Severe scoliosis COPD (chronic obstructive pulmonary disease) Hypercholesterolemia Hypertension Surgical History History of colonoscopy History of removal of ovarian cyst History of tonsillectomy S/P STORM-BSO Paraesophageal hernia Family History Father CVD (cardiovascular disease) Heart failure Mother Cervical cancer Sister In good health Social History Housing: House Alcohol intake: never Patient Tobacco Use Status: Never used Tobacco Tobacco use type: Cigarette e-Cigarette/Vaping Use: Never Used Second Hand Smoke Exposure: No service: No Current occupational status: retired Cognitive needs: Yes (Walker, cane, wheelchair) Hearing needs: No Vision needs: Yes (Glasses) Questionnaire PHQ-9 Over the last 2 weeks, how often have you been bothered by any of the following problems? 1. Little interest or pleasure in doing things: not at all 2. Feeling down, depressed, or hopeless: not at all 3. Trouble falling or staying asleep, or sleeping too much: not at all 4. Feeling tired or having little energy: not at all 5. Poor appetite or overeating: not at all 6. Feeling bad about yourself - or that you are a failure or have let yourself or your family down: not at all 7. Trouble concentrating on things, such as reading the newspaper or watching television: not at all 8. Moving or speaking so slowly that other people could have noticed. Or the opposite - being so fidgety or restless that you have been moving around a lot more than usual: not at all 9. Thoughts that you would be better off or of hurting yourself in some way: not at all Total score: 0 Depression Screening Interpretation: Negative Depression Screening Done: Yes Source: Developed by Drs. Cody Yusuf, Virginia Avila, Johann Khoury and colleagues, with an educational obed from [employer]. Thrive Questionnaire Date Thrive assessed: 03/28/23 Are you currently unemployed and looking for a job?: No AUDIT C Alcohol Use Questionnaire (AUDIT-C) 3. How often do you have six or more drinks on one occasion?: Never Total Score: 0 RENALDO-7 AMB Questionnaire RENALDO-7 Date RENALDO - 7 assessed: 11/18/23 Feeling nervous, anxious, or on edge: 0 = Not at all Not being able to stop or control worryin = Not at all Worrying too much about different things: 0 = Not at all Trouble relaxin = Not at all Being so restless that it is hard to sit still: 0 = Not at all Becoming easily annoyed or irritable: 0 = Not at all Feeling afraid as if something awful might happen: 0 = Not at all Total RENALDO-7 score (0-4 normal; 5-9 mild; 10-14 moderate; 15-21 severe): 0 Source: Developed by Drs. Cody Yusuf, Virginia Avila, Johann Khoury and colleagues, with an educational obed from [employer]. Physical exam (Primary Care) Vital Signs: Last Vital Signs Pulse 71 11/18/23 15:37 BP 110/72 11/18/23 15:37 Pulse Ox 96 11/18/23 15:37 Oxygen Delivery Method Room Air 11/18/23 15:37 BMI result Body Mass Index 22.1 Tobacco/Smoking Status: Tobacco use Status Tobacco use date assessed 11/18/23 11/18/23 15:40 Patient Tobacco Use Status Never used Tobacco 11/18/23 15:35 Tobacco use type Cigarette 11/18/23 15:35 e-Cigarette/Vaping Use Never Used 11/18/23 15:35 PHQ-9: PHQ-9 Score PHQ-9: Total score 0 11/18/23 15:55 Depression Screening Interpretation: Negative Thrive Assessment: Date of Thrive Assessment Date Thrive assessed 03/28/23 11/18/23 15:35 Const General: alert; No acute distress Eyes Conjunctivae: conjunctivae normal Resp Auscultation: clear to auscultation bilaterally Cardio Rate: regular rate Rhythm: regular rhythm GI Inspection: Yes normal to inspection Extrem General: Yes normal to inspection and No edema Office Procedures Flu Questionnaire Does the patient have a severe egg allergy?: No Does the patient have severe life threatening allergies?: No Does the patient have a fever or illness today?: No Has the patient ever had Guillain-[place] Syndrome?: No Has the patient ever had any past reaction to a flu shot?: No Immunizations Fluarix Triv 3605-1420 (PF) 45 mcg (15 mcg x 3)/0.5 mL IM syringe Performing Provider: Jaimee Drake MD [facility] Administered by: Shira Parrish LPN on 11/18/23 15:54 Dose Route Admin Location Dispensed Lot Number Expiration Date NDC 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 0.5 mL IM Left Deltoid 0.5 mL [id number] 08/09/24 [id number] [employer] VIS Given Date VIS Provided VIS Publication Date 11/18/23 Single Vaccine 20 Eligibility Eligibility Date Funding Source Not [facility] Eligible 11/18/23 Private Coding Level of Care Code Est Pt Level 4 (86338) Diagnoses Instability of right knee joint M25.361 GERD (gastroesophageal reflux disease) K21.9 Generalized anxiety disorder F41.1 Osteoporosis M81.0 Pulmonary emphysema, unspecified emphysema type J43.9 COPD type: emphysema Emphysema type: unspecified Hypercholesterolemia E78.00 Essential hypertension I10 Hypertension type: essential hypertension Assessment & Plan Assessment & Plan (1) Instability of right knee joint: Comment: July 2023 had an MRI of the knee showing impaction bone contusions on the lateral femoral condyle and anterior aspect of the lateral tibial plateau and the lateral aspect of the patella. No dislocation moderate thinning of the patellar cartilage and femoral trochlear cartilage. Small joint effusion, small and moderate prepatellar bursitis horizontal oblique tear on the inferior articular surface of the free edge of the posterior horn of the medial meniscus muscle sprain of the soleus muscle mild ACL sprain Code(s): M25.361 - Other instability, right knee Category: Medical Plan: Patient had an MRI done showing bursitis as well as medial meniscal tear. (2) GERD (gastroesophageal reflux disease): Code(s): K21.9 - Gastro-esophageal reflux disease without esophagitis Category: Medical Plan: Avoid the foods that causes that usually spicy foods, tomato products, juices, coffee, soda and foods that your sensitive to. After eating do not lie down, allow 3-4 hours before in lie down. And keep the head of bed above 30 degrees to avoid the acid from going up. (3) Generalized anxiety disorder: Code(s): F41.1 - Generalized anxiety disorder Category: Medical Plan: Continue with present medication (4) Osteoporosis: Comment: December 2020 Code(s): M81.0 - Age-related osteoporosis without current pathological fracture Category: Medical Plan: Discussed about bone density and treatments. (5) COPD (chronic obstructive pulmonary disease): Code(s): J44.9 - Chronic obstructive pulmonary disease, unspecified Category: Medical Qualifiers: COPD type: emphysema Emphysema type: unspecified Qualified Code(s): J43.9 - Emphysema, unspecified Plan: Continue with the inhaler as needed (6) Hypercholesterolemia: Code(s): E78.00 - Pure hypercholesterolemia, unspecified Category: Medical Plan: Avoid fried foods, chicken skin, eggs, butter margarine, pastries and meat. Be it pork or beef they have a lot of cholesterol LDL goal of less than 130 and triglyceride of less than 150. (7) Hypertension: Code(s): I10 - Essential (primary) hypertension Category: Medical Qualifiers: Hypertension type: essential hypertension Qualified Code(s): I10 - Essential (primary) hypertension Plan: Continue with blood pressure medication. Decrease salt intake and exercise on lisinopril hydrochlorothiazide and amlodipine Orders: Orders Influenza [id number] Immunization Today Z23 - Encounter for immunization
[2023-11-18 15:37] VITALS: BP 110/72; PULSE 71; O2SAT 96; BMI 22.1
== END 2023-11-18 16:11 | disposition home or self-care (01) ==
PROVIDERS: PCP Internal Medicine; Visit Provider Internal Medicine
DX: K21.9 Gastro-esophageal reflux disease without esophagitis (principal); J43.9 Emphysema, unspecified; M25.361 Other instability, right knee; F41.1 Generalized anxiety disorder; M81.0 Age-related osteoporosis without current pathological fracture; E78.00 Pure hypercholesterolemia, unspecified; I10 Essential (primary) hypertension; Z23 Encounter for immunization

== ENCOUNTER → 2023-11-18 15:22 | Outpatient (BNVA) | payer MEDICARE, SELFPAY | PROVIDERS: PCP Internal Medicine; Visit Provider Internal Medicine | DX: Z23 Encounter for immunization (principal); F41.1 Generalized anxiety disorder; M25.361 Other instability, right knee; K21.9 Gastro-esophageal reflux disease without esophagitis; M81.0 Age-related osteoporosis without current pathological fracture; J43.9 Emphysema, unspecified; E78.00 Pure hypercholesterolemia, unspecified; I10 Essential (primary) hypertension | CPT/HCPCS: 90471; 90656; 96127; 99212 ==

== ENCOUNTER 2023-11-26 11:07 | Outpatient (AMB) | payer MEDICARE, SELFPAY ==
[2023-11-26 11:13] VITALS: BP 114/70; PULSE 67; O2SAT 94
--- NOTE | 2023-11-26 11:13 | A.OFFPC_ITS ---
Vital Signs 11/26/23 11:13 Height 5 ft BMI Reason not done Patient refused/unable BP 114/70 Blood Pressure Location Lt brachial Position Sitting Pulse 67 Pulse Source Pulse Oximeter Pulse Oximetry (%) 94 Oxygen Delivery Method Room Air Intake Visit Reasons: Fall damage , Dementia Intake Note: Pt here due to fall on 11/22 and she almost fell again 11/23. [employer] Required: No Accompanied by: Daughter Allergies meperidine [Demerol] Allergy (Unknown, Verified 11/26/23 11:15) Unknown morphine [MORPHINE] Allergy (Unknown, Verified 11/26/23 11:15) UNKNOWN Sulfa (Sulfonamide Antibiotics) Allergy (Unknown, Verified 11/26/23 11:15) unknown sulfur Allergy (Unknown, Verified 11/26/23 11:15) Unknown amoxicillin [From Augmentin] Adverse Reaction (Intermediate, Verified 11/26/23 11:15) C diff clavulanic acid [From Augmentin] Adverse Reaction (Intermediate, Verified 11/26/23 11:15) C diff Tobacco use date assessed: 11/18/23 Fall risk assessment: 2 + Falls in past year Last assessed Fall Risk: 11/26/23 Dental Screening Dental Screen Date: 03/28/23 HPI Fall damage , Dementia HPI Details 83-year-old female with osteoporosis [place] D COPD hypercholesterolemia hypertension generalized anxiety disorder coming in for an acute problem. Last seen in November 17 for instability of right knee joint. MRI showing bursitis as well as medial meniscal tear.. Patient is unstable on standing up but discussed that the reason is the right knee problem. Will get Orthopedics to evaluate. Meanwhile physical therapy is advised but patient would declined this. As for the dementia declined any new medication and advised that this is going to get worse anyway. Left arm examination more of lateral epicondylitis. Are is able to move all extremities. Patient is able to stand but unstable. [facility] Medical History Tiredness Fracture, humerus Shoulder impingement syndrome Tubular adenoma of colon Severe scoliosis COPD (chronic obstructive pulmonary disease) Hypercholesterolemia Hypertension Surgical History History of colonoscopy History of removal of ovarian cyst History of tonsillectomy S/P STORM-BSO Paraesophageal hernia Family History Father CVD (cardiovascular disease) Heart failure Mother Cervical cancer Sister In good health Social History Housing: House Alcohol intake: never Patient Tobacco Use Status: Never used Tobacco Tobacco use type: Cigarette e-Cigarette/Vaping Use: Never Used Second Hand Smoke Exposure: No service: No Current occupational status: retired Cognitive needs: Yes (Walker, cane, wheelchair) Hearing needs: No Vision needs: Yes (Glasses) Questionnaire PHQ-9 Over the last 2 weeks, how often have you been bothered by any of the following problems? 1. Little interest or pleasure in doing things: not at all 2. Feeling down, depressed, or hopeless: not at all 3. Trouble falling or staying asleep, or sleeping too much: not at all 4. Feeling tired or having little energy: not at all 5. Poor appetite or overeating: not at all 6. Feeling bad about yourself - or that you are a failure or have let yourself or your family down: not at all 7. Trouble concentrating on things, such as reading the newspaper or watching television: not at all 8. Moving or speaking so slowly that other people could have noticed. Or the opposite - being so fidgety or restless that you have been moving around a lot more than usual: not at all 9. Thoughts that you would be better off or of hurting yourself in some way: not at all Total score: 0 Depression Screening Interpretation: Negative Depression Screening Done: Yes Source: Developed by Drs. Cody Yusuf, Virginia Avila, Johann Khoury and colleagues, with an educational obed from [employer]. Thrive Questionnaire Date Thrive assessed: 03/28/23 Are you currently unemployed and looking for a job?: No AUDIT C Alcohol Use Questionnaire (AUDIT-C) 3. How often do you have six or more drinks on one occasion?: Never Total Score: 0 RENALDO-7 AMB Questionnaire RENALDO-7 Date RENALDO - 7 assessed: 11/18/23 Source: Developed by Drs. Cody Yusuf, Virginia Avila, Johann Khoury and colleagues, with an educational obed from [employer]. Physical exam (Primary Care) Vital Signs: Last Vital Signs Pulse 67 11/26/23 11:13 BP 114/70 11/26/23 11:13 Pulse Ox 94 11/26/23 11:13 Oxygen Delivery Method Room Air 11/26/23 11:13 Tobacco/Smoking Status: Tobacco use Status Tobacco use date assessed 11/18/23 11/26/23 11:20 Patient Tobacco Use Status Never used Tobacco 11/26/23 11:20 Tobacco use type Cigarette 11/26/23 11:20 e-Cigarette/Vaping Use Never Used 11/26/23 11:20 PHQ-9: PHQ-9 Score PHQ-9: Total score 0 11/26/23 11:20 Depression Screening Interpretation: Negative Thrive Assessment: Date of Thrive Assessment Date Thrive assessed 03/28/23 11/26/23 11:20 Const General: alert; No acute distress Eyes Conjunctivae: conjunctivae normal Resp Auscultation: clear to auscultation bilaterally Cardio Rate: regular rate Rhythm: regular rhythm GI Inspection: Yes normal to inspection Extrem General: Yes normal to inspection and No edema Coding Level of Care Code Est Pt Level 4 (41557) Diagnoses Instability of right knee joint M25.361 Cognitive impairment R41.89 Recurrent falls R29.6 Assessment & Plan Assessment & Plan (1) Instability of right knee joint: Comment: July 2023 had an MRI of the knee showing impaction bone contusions on the lateral femoral condyle and anterior aspect of the lateral tibial plateau and the lateral aspect of the patella. No dislocation moderate thinning of the patellar cartilage and femoral trochlear cartilage. Small joint effusion, small and moderate prepatellar bursitis horizontal oblique tear on the inferior articular surface of the free edge of the posterior horn of the medial meniscus muscle sprain of the soleus muscle mild ACL sprain Code(s): M25.361 - Other instability, right knee Category: Medical Plan: referral to ortho. (2) Cognitive impairment: Comment: severe MMS 12/09 Code(s): R41.89 - Other symptoms and signs involving cognitive functions and awareness Category: Medical Plan: decline med for now (3) Recurrent falls: Code(s): R29.6 - Repeated falls Category: Medical Plan: concern on R knee meniscal tear, would make sure fall prevention. option of Physical therapy advsied but patient declined Orders: Referrals Orthopedics Referral M25.361 - Other instability, right knee
== END 2023-11-26 11:59 | disposition home or self-care (01) ==
PROVIDERS: PCP Internal Medicine; Visit Provider Internal Medicine
DX: M25.361 Other instability, right knee (principal); R41.89 Other symptoms and signs involving cognitive functions and awareness; R29.6 Repeated falls

== ENCOUNTER → 2023-11-26 11:07 | Outpatient (BNVA) | payer MEDICARE, SELFPAY | PROVIDERS: PCP Internal Medicine; Visit Provider Internal Medicine | DX: M25.361 Other instability, right knee (principal); R41.89 Other symptoms and signs involving cognitive functions and awareness; R29.6 Repeated falls | CPT/HCPCS: 96127; 99212 ==

== ENCOUNTER 2024-02-20 11:52 | Emergency (ER) | payer MEDICARE, SELFPAY ==
--- NOTE | ~2024-02-20 | CT_ITS ---
EXAMINATION: CT LUMBAR SPINE WITHOUT CONTRAST CLINICAL INFORMATION: Fall, pain and injury. COMPARISON: None available. TECHNIQUE: 2 mm thin axial and reformatted 2 mm thin sagittal and coronal images of lumbar spine were obtained without contrast. This CT examination was performed using dose optimization techniques as appropriate, variously including the following: *Automated exposure control *Adjustment of mA and/or kV according to patient size (this includes techniques or standardized protocols for targeted exams where dose is matched to indication/reason for exam; i.e. extremities or head) *Use of iterative reconstruction technique DLP 1853 mGy/cm. FINDINGS: There is maintained lumbar lordosis. There is mild levoscoliosis. Eccentric disc degenerative changes are seen at L5-S1, L4-5, L3-4 and L2-3 disc level secondary to scoliosis. No visible acute fracture, or loss of vertebral height seen. No lytic or sclerotic process. The spinal canal is capacious the neural foramina are patent CT/CT lumbar spine wo IV con IMPRESSION: Extremely with scoliosis with degenerative disc changes. No visible acute fracture, dislocation or subluxation seen. Diffuse osteopenia. Electronically signed by: Santiago Rosales MD 02/20/2024 02:12 PM [facility]
--- NOTE | ~2024-02-20 | CT_ITS ---
EXAMINATION: CT HEAD WITHOUT CONTRAST CLINICAL INFORMATION: Strike. Fall, pain. COMPARISON: None available. TECHNIQUE: Contiguous axial imaging was performed from the skull base to vertex without intravenous administration of contrast. DLP 1853 mGy/cm. This CT examination was performed using dose optimization techniques as appropriate, variously including the following: *Automated exposure control *Adjustment of mA and/or kV according to patient size (this includes techniques or standardized protocols for targeted exams where dose is matched to indication/reason for exam; i.e. extremities or head) *Use of iterative reconstruction technique FINDINGS: There is no acute intra-axial, extra-axial bleed, masses or midline shift. There is no acute infarction in evolution. There is no edema. The lateral ventricles are symmetrical in size and configuration with mild enlargement. There is benign bilateral hyperostosis frontalis interna. There is mild periventricular hypodensity without mass effect suggestive of chronic small vessel ischemic changes. Bone windows reveal minimal mucoperiosteal thickening right maxillary and sphenoid sinuses. Rest of the paranasal sinuses and mastoid air cells are well-aerated. CT/CT head/brain wo IV con IMPRESSION: No acute intracranial process seen. Mild inflammatory processes right maxillary and right sphenoid sinus. Electronically signed by: Santiago Rosales MD 02/20/2024 02:03 PM [facility]
--- NOTE | ~2024-02-20 | XR_ITS ---
EXAMINATION: XR KNEE, LEFT CLINICAL INFORMATION: pain, injury COMPARISON: None available. TECHNIQUE: Four views of the left knee. FINDINGS: There is diffuse osteopenia. There is no fracture, dislocation, or suspicious bone lesion. There is normal alignment. 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 There is mild medial and patellofemoral compartment joint space narrowing. There is spurring of the tibial spines. There is a tiny suprapatellar joint effusion. No soft tissue abnormalities. XR/XR knee LT 3V IMPRESSION: 1. Osteopenia. No acute findings of the left knee. 2. Chondrocalcinosis suggesting CPPD arthropathy, with mild medial and patellofemoral compartment joint space narrowing. 3. Tiny joint effusion. Electronically signed by: Navid Marshall MD 02/20/2024 02:31 PM [facility]
--- NOTE | ~2024-02-20 | CT_ITS ---
EXAMINATION: CT CERVICAL SPINE WITHOUT CONTRAST CLINICAL INFORMATION: Fall, pain. Injury and head strike. COMPARISON: None available. TECHNIQUE: Axial 2 mm thin and reformatted 2 minute thin sagittal and coronal images of cervical spine were obtained. DLP 1853. This CT examination was performed using dose optimization techniques as appropriate, variously including the following: *Automated exposure control *Adjustment of mA and/or kV according to patient size (this includes techniques or standardized protocols for targeted exams where dose is matched to indication/reason for exam; i.e. extremities or head) *Use of iterative reconstruction technique FINDINGS: There is exaggerated thoracic kyphosis. This results in mild exaggerated cervical lordosis. The vertebral heights, alignment are normal. There is mild loss of C6/7 disc height with vacuum disc phenomena. Rest of disc heights are normal. The craniovertebral junction and the C1-C2 alignment is normal. There is no visible acute fracture, dislocation or subluxation seen. There is mild bilateral C2 3-4, C4-5, C5-6 and C6 testis 7 facet joint arthropathy and hypertrophy. The prevertebral and paravertebral soft tissues are normal. The airway is widely patent. No abnormal neck mass or lymphadenopathy seen. CT/CT cervical spine wo IV con IMPRESSION: No acute fracture, dislocation or subluxation seen. Exaggerated cervical lordosis secondary to exaggerated thoracic kyphosis. Mild degenerative facet joint arthropathy as described above. Fleischner guidelines were followed. Electronically signed by: Santiago Rosales MD 02/20/2024 02:07 PM [facility]
[2024-02-20 12:01] VITALS: BP 119/52; BP 146/57; PULSE 104; PULSE 74; RESP 18; TEMP 36.7; O2SAT 96; O2SAT 97; BMI 23.7
--- NOTE | 2024-02-20 12:07 | ED_ITS ---
HPI - General Adult General Chief complaint: Fall Stated complaint: FALL Time Seen by Provider: 02/20/24 12:06 Source: patient and EMS Mode of arrival: EMS Limitations: no limitations History of Present Illness ED Provider: Nikkie Solorio PA-C HPI narrative: Patient is an 83 year old assigned female at with a history of gait instability, eczema, GERD, RENALDO, COPD, HTN, and cognitive decline presenting to the emergency department today after a trip and fall. Patient states that she was walking when she tripped and fell, landing partially onto her bed. Patient states that she did not strike her head or lose consciousness. Patient states that she has left knee pain. Patient denies any dizziness, lightheadedness, abdominal pain, nausea, vomiting, fever, chills, blurry vision, double vision, loss of vision, chest pain, difficulty breathing, shortness of breath, back pain, night sweats, pain with urination, increased urinary frequency, increased urinary urgency, blood in her urine or stool, syncope or a near syncopal episode, bowel incontinence, bladder incontinence, or any other complaints at this time. Relieving factors: none Exacerbating factors: none Associated symptoms: denies other symptoms Treatments prior to arrival: none Related Data Home Medications ?Medication ?Instructions ?Recorded ?Confirmed acetaminophen 325 mg capsule 325 mg PO QID PRN 11/25/19 07/17/23 simethicone 80 mg tablet 80 mg PO BID-QID PRN 11/25/19 07/17/23 Previous Rx's ?Medication ?Instructions ?Recorded albuterol sulfate 90 mcg/actuation 2 puff PO Q4H PRN bronchospasm 04/05/22 aerosol inhaler #8.5 grams fexofenadine 180 mg tablet 180 mg PO DAILY PRN allergy 04/05/22 symptoms #90 tabs ascorbic acid (vitamin C) 250 mg 250 mg PO DAILY #30 tabs 05/10/22 tablet cholecalciferol (vitamin D3) 25 25 mcg PO DAILY 90 days #90 caps 07/04/22 mcg (1,000 unit) capsule multivitamin 1 tab PO DAILY #90 tabs 07/04/22 mometasone 0.1 % topical cream 1 appl topical BID PRN skin 09/24/22 irritation #45 grams amlodipine 10 mg tablet 10 mg PO DAILY #90 tabs 04/08/23 atorvastatin 10 mg tablet 10 mg PO DAILY #90 tabs 04/09/23 lisinopril 20 1 tab PO DAILY #90 tabs 04/09/23 mg-hydrochlorothiazide 12.5 mg tablet wheelchair #1 ea 07/15/23 cephalexin 250 mg capsule 250 mg PO BID #6 caps 08/25/23 alprazolam 0.5 mg tablet 0.5 mg PO BID #180 tabs 10/10/23 omeprazole 20 mg capsule,delayed 20 mg PO DAILY #90 caps 10/15/23 release fluticasone propionate 50 2 spray intranasal DAILY #15.8 mL 11/11/23 mcg/actuation nasal spray,suspension (Flonase Allergy Relief) sertraline 100 mg tablet 200 mg (2 x 100 mg) PO DAILY #180 02/15/24 tabs Allergies Allergy/AdvReac Type Severity Reaction Status Date / Time meperidine [Demerol] Allergy Unknown Unknown Verified 02/20/24 12:03 morphine [MORPHINE] Allergy Unknown UNKNOWN Verified 11/26/23 11:15 Sulfa (Sulfonamide Allergy Unknown unknown Verified 11/26/23 11:15 Antibiotics) sulfur Allergy Unknown Unknown Verified 11/26/23 11:15 amoxicillin [From Augmentin] AdvReac Intermediate C diff Verified 11/26/23 11:15 clavulanic acid AdvReac Intermediate C diff Verified 11/26/23 11:15 [From Augmentin] Review of Systems Constitutional: Constitutional: Reports no additional constitutional complaints, Denies chills, Denies fever(s) and Denies night sweats Eyes: Eyes: Reports no additional eye complaints, Denies blurry vision, Denies change in vision, Denies diplopia, Denies eye discharge, Denies loss of vision and Denies eye pain ENT: Denies dizziness Cardiovascular: Cardiovascular: Reports no additional cardiovascular complaints, Denies chest pain, Denies lightheadedness, Denies Loss of Consciousness and Denies dyspnea Respiratory: Respiratory: Reports no additional respiratory complaints and Denies dyspnea Gastrointestinal: Gastrointestinal: Reports no additional gastrointestinal complaints, Denies abdominal pain, Denies melena, Denies hematochezia, Denies change in bowel habits and Denies change in stool character Genitourinary: Genitourinary: Denies hematuria, Denies urinary frequency, Denies dysuria, Denies urinary incontinence, Denies urinary hesitancy and Denies urinary urgency Musculoskeletal: Musculoskeletal: Reports no additional musculoskeletal complaints, Denies numbness and Denies tingling Comments: left knee pain Neurologic: Denies dizziness, Denies loss of vision, Denies numbness and Denies tingling Psychiatric: Psychiatric: Reports no additional psychiatric complaints Endocrine: Endocrine: Reports no additional endocrine complaints Hematologic/Lymphatic: Hematologic/Lymphatic: Reports no additional hematologic/lymphatic complaints Allergic/Immunologic: Allergic/Immunologic: Reports no additional allergic/immunologic complaints FORMERLY [facility], [facility] Past Medical History Attestation statement: The following information was validated with the patient. Source: old records reviewed and nursing notes reviewed Medical History Tiredness Fracture, humerus Shoulder impingement syndrome Tubular adenoma of colon Severe scoliosis COPD (chronic obstructive pulmonary disease) Hypercholesterolemia Hypertension Surgical History History of colonoscopy History of removal of ovarian cyst History of tonsillectomy S/P STORM-BSO Paraesophageal hernia Family History Family History Father CVD (cardiovascular disease) Heart failure Mother Cervical cancer Sister In good health Social History Social History Housing: House Alcohol intake: never Patient Tobacco Use Status: Never used Tobacco Tobacco use type: Cigarette Smoked in Last 30 Days: No e-Cigarette/Vaping Use: Never Used Second Hand Smoke Exposure: No Use of substances other than those prescribed or required for medical reasons: No Advance Directives: Yes Advance Directives Information Provided: Yes Advance Directives on File: No service: No Current occupational status: retired Cognitive needs: Yes (Walker, cane, wheelchair) Hearing needs: No Vision needs: Yes (Glasses) Physical Exam ED Vital Signs: Vital Signs - 24 hr 02/20/24 12:01 02/20/24 14:40 02/20/24 15:37 Temperature 98.0 F 98.3 F 98.1 F Pulse Rate 104 H 41 L 47 L Respiratory Rate 18 16 16 Blood Pressure 146/57 H 129/47 L 132/80 Pulse Oximetry 96 94 98 Oxygen Delivery Method Room Air Room Air Room Air 02/20/24 15:53 Temperature 98.1 F Pulse Rate 47 L Respiratory Rate 16 Blood Pressure 132/80 Pulse Oximetry 98 Oxygen Delivery Method Room Air BMI result Body Mass Index 23.7 Const General: cooperative, no acute distress, alert and awake Nutritional Appearance: well nourished Orientation/consciousness: patient oriented x3 Limitations: no limitations HENMT Head: Yes normal to inspection and Yes atraumatic Ears: hearing grossly normal bilaterally and external ears normal General nose exam: Normal external nose present, no nasal discharge noted and no epistaxis Face and sinus: Yes normal facial exam, No abrasion and No laceration Mouth: Normal oral and palatal mucosa present, no drooling and no muffled voice Eyes General: appearance normal, both eyes and all related structures Periorbital: periorbital findings normal Eyelids: Yes eyelids normal Conjunctivae: conjunctivae normal Pupils: Equal, round and reactive pupils present EOM: EOMs intact bilaterally Neck Neck: Yes normal visual inspection, Yes full ROM and Yes no lymphadenopathy Chest Chest palpation & inspection: normal inspection of the chest Resp Effort & Inspection: normal respiratory effort and able to speak in complete sentences GI Inspection: Yes normal to inspection Neuro General: patient oriented x3 and moves all extremities Cranial nerves: Yes Equal, round and reactive pupils present Cognition (Neuro): normal cognition Extrem Other: pain with palpation of the lateral left knee General: Yes normal to inspection, Yes full ROM and Yes capillary refill normal Psych Appearance: grossly normal Mental Status: mental status grossly normal Affect: normal affect Attitude: cooperative Thought process: Normal thought process present Thought content: Normal thought content present Insight: Good insight present (Psych) Medications Administered Discontinued Medications Generic Name Dose Route Start Last Admin Trade Name Freq PRN Reason Stop Dose Admin Acetaminophen 650 mg 02/20/24 14:23 02/20/24 14:50 Acetaminophen 325 Mg Tablet PO 02/20/24 14:24 650 mg ONCE ONE Administration Medical Decision Making Medical Decision Making MDM Narrative: Patient is an 83 year old assigned female at with a history of gait instability, eczema, GERD, RENALDO, COPD, HTN, and cognitive decline presenting to the emergency department today after a trip and fall. Patient's physical exam was as noted in the physical exam portion of this note. Patient's left knee x- ray, head CT, c-spine CT, and lumbar spine CT showed no acute process. Patient states that she has been around someone with COVID lately and wants to be tested. Patient's COVID-19 test was positive. I explained my physical exam findings as well as all test results to the patient. I answered all questions asked by the patient. I stressed the importance of the patient taking her medication as directed (either prescribed or as the over the counter packaging recommends). I stressed the importance of the patient following up with her primary care provider. I stressed the importance of the patient returning to the emergency department immediately if her symptoms were to worsen or if she were to develop any dizziness, shortness of breath, difficulty breathing, chest pain, blurry vision, loss of vision, nausea, vomiting, abdominal pain, fever, chills, back pain, or any other complaints. Patient verbalized agreement and understanding with this treatment plan and discharge. Differential Diagnosis Differential Diagnoses: The differential diagnosis associated with the presentation includes Knee pain Knee contusion Fracture Fall COVID Admission/Observation Consideration of admission/observation: Escalation of care including admission/observation considered Patient would have been admitted to the hospital had her work up had any findings where hospital admission was appropriate and her clinical presentation warranted hospital admission. Lab Data [facility] Lab Attestation statement: I reviewed the patient's lab results. My interpretation of these results are in the [facility] Rationale portion of this note. Labs: Lab Results 02/20/24 Range/Units 15:05 COVID-19 ([facility]) Positive A (Negative) COVID-19 Clin Com See Note Independent Interpretation I performed an independent interpretation of an: Plain X-Ray and CT Scan Interpretation: My interpretation is in agreement with the radiologist's impression of these imaging studies. Report Number: [id number]: Total DLP = 980.90 mGy-cm EXAMINATION: CT HEAD WITHOUT CONTRAST CLINICAL INFORMATION: Strike. Fall, pain. COMPARISON: None available. TECHNIQUE: Contiguous axial imaging was performed from the skull base to vertex without intravenous administration of contrast. DLP 1853 mGy/cm. This CT examination was performed using dose optimization techniques as appropriate, variously including the following: *Automated exposure control *Adjustment of mA and/or kV according to patient size (this includes techniques or standardized protocols for targeted exams where dose is matched to indication/reason for exam; i.e. extremities or head) *Use of iterative reconstruction technique FINDINGS: There is no acute intra-axial, extra-axial bleed, masses or midline shift. There is no acute infarction in evolution. There is no edema. The lateral ventricles are symmetrical in size and configuration with mild enlargement. There is benign bilateral hyperostosis frontalis interna. There is mild periventricular hypodensity without mass effect suggestive of chronic small vessel ischemic changes. Bone windows reveal minimal mucoperiosteal thickening right maxillary and sphenoid sinuses. Rest of the paranasal sinuses and mastoid air cells are well-aerated. CT/CT head/brain wo IV con IMPRESSION: No acute intracranial process seen. Mild inflammatory processes right maxillary and right sphenoid sinus. Electronically signed by: Santiago Rosales MD 02/20/2024 02:03 PM [facility] [place] Dictated By: Santiago Rosales MD Signed By: Electronically signed by Santiago Rosales MD 02/20/24 1403 Report Number: [id number]: Total DLP = 609.60 mGy-cm EXAMINATION: CT LUMBAR SPINE WITHOUT CONTRAST CLINICAL INFORMATION: Fall, pain and injury. COMPARISON: None available. TECHNIQUE: 2 mm thin axial and reformatted 2 mm thin sagittal and coronal images of lumbar spine were obtained without contrast. This CT examination was performed using dose optimization techniques as appropriate, variously including the following: *Automated exposure control *Adjustment of mA and/or kV according to patient size (this includes techniques or standardized protocols for targeted exams where dose is matched to indication/reason for exam; i.e. extremities or head) *Use of iterative reconstruction technique DLP 1853 mGy/cm. FINDINGS: There is maintained lumbar lordosis. There is mild levoscoliosis. Eccentric disc degenerative changes are seen at L5-S1, L4-5, L3-4 and L2-3 disc level secondary to scoliosis. No visible acute fracture, or loss of vertebral height seen. No lytic or sclerotic process. The spinal canal is c apacious the neural foramina are patent ORDER : [id number] CT/CT lumbar spine wo IV con IMPRESSION: Extremely with scoliosis with degenerative disc changes. No visible acute fracture, dislocation or subluxation seen. Diffuse osteopenia. Electronically signed by: Santiago Rosales MD 02/20/2024 02:12 PM EST RP Dictated By: Santiago Rosales MD Signed By: Electronically signed by Santiago Rosales MD 02/20/24 1412 EXAMINATION: XR KNEE, LEFT CLINICAL INFORMATION: pain, injury COMPARISON: None available. TECHNIQUE: Four views of the left knee. FINDINGS: There is diffuse osteopenia. There is no fracture, dislocation, or suspicious bone lesion. There is normal alignment. 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 There is mild medial and patellofemoral compartment joint space narrowing. There is spurring of the tibial spines. There is a tiny suprapatellar joint effusion. No soft tissue abnormalities. XR/XR knee LT 3V IMPRESSION: 1. Osteopenia. No acute findings of the left knee. 2. Chondrocalcinosis suggesting CPPD arthropathy, with mild medial and kennedy lofemoral compartment joint space narrowing. 3. Tiny joint effusion. Electronically signed by: Navid Marshall MD 02/20/2024 02:31 PM EST RP Dictated By: Navid Marshall MD Signed By: Electronically signed by Navid Marshall MD 02/20/24 1431 Report Number: [id number]: Total DLP = 262.50 mGy-cm EXAMINATION: CT CERVICAL SPINE WITHOUT CONTRAST CLINICAL INFORMATION: Fall, pain. Injury and head strike. COMPARISON: None available. TECHNIQUE: Axial 2 mm thin and reformatted 2 minute thin sagittal and coronal images of cervical spine were obtained. DLP 1853. This CT examination was performed using dose optimization techniques as appropriate, variously including the following: *Automated exposure control *Adjustment of mA and/or kV according to patient size (this includes techniques or standardized protocols for targeted exams where dose is matched to indication/reason for exam; i.e. extremities or head) *Use of iterative reconstruction technique FINDINGS: There is exaggerated thoracic kyphosis. This results in mild exaggerated cervical lordosis. The vertebral heights, alignment are normal. There is mild loss of C6/7 disc height with vacuum disc phenomena. Rest of disc heights are normal. The craniovertebral junction and the C1-C2 alignment is normal. There is no visible acute fracture, dislocation or subluxation seen. There is mild bilateral C2 3-4, C4-5, C5-6 and C6 testis 7 facet joint arthropathy and hypertrophy. The prevertebral and paravertebral soft tissues are normal. The airway is widely patent. No abnormal neck mass or lymphadenopathy seen. CT/CT cervical spine wo IV con IMPRESSION: No acute fracture, dislocation or subluxation seen. Exaggerated cervical lordosis secondary to exaggerated thoracic kyphosis. Mild degenerative facet joint arthropathy as described above. Fleischner guidelines were followed. Electronically signed by: Santiago Rosales MD 02/20/2024 02:07 PM [facility] [place] Dictated By: Santiago Rosales MD Signed By: Electronically signed by Santiago Rosales MD 02/20/24 1407 Radiology Impression Discussion of test interpretation with radiology: I have reviewed the radiologist's reading. Independent Historian Clinical information obtained from an independent historian. History obtained from or confirmed by: EMS (EMS provided additional history and confirmed the history provided by the patient.) Discharge Plan Discharge Clinical Impression: COVID-19, Acute knee pain, Fall from slip, trip, or stumble Patient Disposition: Home, Self-Care Instructions: Knee Pain (ED), COVID-19 (Coronavirus Disease 2019) (ED) Additional Instructions: Follow up with your primary care provider. Return to the emergency department immediately if your symptoms worsen or if you develop any dizziness, shortness of breath, difficulty breathing, chest pain, blurry vision, loss of vision, nausea, vomiting, abdominal pain, fever, chills, back pain, or any other complaints. Prescriptions: No Action albuterol sulfate 90 mcg/actuation HFA aerosol inhaler 2 puff PO Q4H PRN (Reason: bronchospasm) Qty: 8.5 0RF fexofenadine 180 mg tablet 180 mg PO DAILY PRN (Reason: allergy symptoms) Qty: 90 3RF ascorbic acid (vitamin C) 250 mg tablet 250 mg PO DAILY Qty: 30 0RF multivitamin Tablet 1 tab PO DAILY Qty: 90 1RF cholecalciferol (vitamin D3) 25 mcg (1,000 unit) capsule 25 mcg PO DAILY 90 Days Qty: 90 1RF amlodipine 10 mg tablet 10 mg PO DAILY Qty: 90 3RF lisinopril-hydrochlorothiazide 20-12.5 mg tablet 1 tab PO DAILY Qty: 90 3RF atorvastatin 10 mg tablet 10 mg PO DAILY Qty: 90 3RF (DME) wheelchair See Rx Instructions .Route .MEDSUPPLY Qty: 1 0RF Rx Instructions: As directed alprazolam 0.5 mg tablet 0.5 mg PO BID Qty: 180 0RF Rx Instructions: Takes 1/2 a tab in the AM, full tab in the PM omeprazole 20 mg capsule,delayed release(DR/EC) 20 mg PO DAILY Qty: 90 2RF fluticasone propionate [Flonase Allergy Relief] 50 mcg/actuation spray,suspension 2 spray intranasal DAILY Qty: 15.8 1RF Rx Instructions: administer into each nostril sertraline 100 mg tablet 200 mg PO DAILY Qty: 180 2RF cephalexin 250 mg capsule 250 mg PO BID Qty: 6 0RF acetaminophen 325 mg capsule 325 mg PO QID PRN simethicone 80 mg tablet 80 mg PO BID-QID PRN mometasone 0.1 % cream 1 appl topical BID PRN (Reason: skin irritation) Qty: 45 0RF Rx Instructions: 1-2 week only Referrals: Vidal,Jaimee Ervin MD [Primary Care Provider] - Interventions: ED Discharge Assessment Last Done: 02/20/24 15:53 Discharge Date/Time: 02/20/24 15:54 Print Language: Lebanese
[2024-02-20 14:40] VITALS: BP 129/47; PULSE 41; RESP 16; TEMP 36.8; O2SAT 94
[2024-02-20] MEDS: Acetaminophen 325 MG TABLET 650 MG PO (14:50)
[2024-02-20 15:24] LABS: COVID-19 Test Positive (Negative); IDNOW Serial# 58CA691E
[2024-02-20 15:37] VITALS: BP 132/80; PULSE 47; RESP 16; TEMP 36.7; O2SAT 98
[2024-02-20 15:53] VITALS: BP 132/80; PULSE 47; RESP 16; TEMP 36.7; O2SAT 98
== END 2024-02-20 15:54 | disposition home or self-care (01) ==
PROVIDERS: Physician Assistant Medical; Emergency Provider Emergency Medicine; PCP Internal Medicine
DX: S89.92XA Unspecified injury of left lower leg, initial encounter (principal); R51.9 Headache, unspecified; M54.2 Cervicalgia; M54.50 Low back pain, unspecified; M25.562 Pain in left knee; W01.10XA Fall on same level from slipping, tripping and stumbling with subsequent striking against unspecified object, initial encounter; Y93.01 Activity, walking, marching and hiking; Y92.003 Bedroom of unspecified non-institutional (private) residence as the place of occurrence of the external cause; Y99.8 Other external cause status; Z11.52 Encounter for screening for COVID-19; Z79.899 Other long term (current) drug therapy
CPT/HCPCS: 70450; 72125; 72131; 73562; 87635; 99284

== ENCOUNTER → 2024-02-20 12:22 | Outpatient (BNV) | payer MEDICARE, SELFPAY | PROVIDERS: Emergency Provider Emergency Medicine; PCP Internal Medicine; Visit Provider Radiology Diagnostic Radiology | DX: M54.2 Cervicalgia (principal); M40.204 Unspecified kyphosis, thoracic region; M41.86 Other forms of scoliosis, lumbar region; M51.360 Other intervertebral disc degeneration, lumbar region with discogenic back pain only; R52 Pain, unspecified; M85.9 Disorder of bone density and structure, unspecified; M25.462 Effusion, left knee | CPT/HCPCS: 70450; 72125; 72131; 73562 ==

== ENCOUNTER → 2024-02-20 18:37 | Outpatient (BNV) | payer MEDICARE, SELFPAY ==
--- NOTE | 2024-02-20 18:37 | MHC.OFFVIS ---
Intake Visit Reasons: Amb Documentation Allergies meperidine [Demerol] Allergy (Unknown, Verified 02/20/24 12:03) Unknown morphine [MORPHINE] Allergy (Unknown, Verified 11/26/23 11:15) UNKNOWN Sulfa (Sulfonamide Antibiotics) Allergy (Unknown, Verified 11/26/23 11:15) unknown sulfur Allergy (Unknown, Verified 11/26/23 11:15) Unknown amoxicillin [From Augmentin] Adverse Reaction (Intermediate, Verified 11/26/23 11:15) C diff clavulanic acid [From Augmentin] Adverse Reaction (Intermediate, Verified 11/26/23 11:15) C diff HPI HPI Amb Documentation: Details: 83-year-old with multiple medical problems hypertension hypercholesterolemia COPD generalized anxiety disorder GERD calling in for COVID-19 infection. tired , no no cough , no sore throat, PFSH Medical History Tiredness Fracture, humerus Shoulder impingement syndrome Tubular adenoma of colon Severe scoliosis COPD (chronic obstructive pulmonary disease) Hypercholesterolemia Hypertension Surgical History History of colonoscopy History of removal of ovarian cyst History of tonsillectomy S/P STORM-BSO Paraesophageal hernia Family History Father CVD (cardiovascular disease) Heart failure Mother Cervical cancer Sister In good health Social History Housing: House Alcohol intake: never Patient Tobacco Use Status: Never used Tobacco Tobacco use type: Cigarette Smoked in Last 30 Days: No e-Cigarette/Vaping Use: Never Used Second Hand Smoke Exposure: No Use of substances other than those prescribed or required for medical reasons: No Advance Directives: Yes Advance Directives Information Provided: Yes Advance Directives on File: No service: No Current occupational status: retired Cognitive needs: Yes (Walker, cane, wheelchair) Hearing needs: No Vision needs: Yes (Glasses) Telehealth Telehealth Telehealth Platform: Telephone Location of provider rendering services: practice address Location of patient: address on file Patient Identification confirmed using: Name, : Yes Telehealth method: voice only Patient verbally consented to treatment: Yes Patient verbally consented to billing insurance company: Yes Patient informed of any privacy concerns related to visit: Yes Minutes spent on Phone/Video with Pt.: 10 Assessment & Plan Assessment & Plan (1) COVID-19: Comment: 02/20/2024 Code(s): U07.1 - COVID-19 Category: Medical Plan: For the sore throat can take Cepacol lozenges, discussed about Delsym to help with dry cough so she can rest and advised to increase oral fluids. Patient also can take Tylenol for chills and fever. Discussed about stopping atorvastatin alprazolam while on the antiviral. Antiviral prescription sent Medications: New nirmatrelvir-ritonavir 300 mg (150 mg x 2)-100 mg (Paxlovid) take TWO 150 mg tablets of nirmatrelvir with ONE 100 mg tablet of ritonavir twice daily for 5 days PO 30 ea 0RF Coding Level of Care Code Tele Est Pt Level 3 (44192) Diagnoses COVID-19 U07.1
== END ==
PROVIDERS: PCP Internal Medicine; Visit Provider Internal Medicine
DX: U07.1 COVID-19 (principal)
CPT/HCPCS: 98012

== ENCOUNTER 2024-02-21 13:37 | Emergency (ER) | payer MEDICARE, SELFPAY ==
--- NOTE | ~2024-02-21 | CT_ITS ---
CLINICAL HISTORY: AMS CT head without contrast Comparison: 02/20/24 and 08/25/23 Findings: No acute hemorrhage. No extra-axial fluid collection. No hydrocephalus, mass-effect or herniation. Olmedo-white differentiation is maintained. There is patchy hypoattenuation of the periventricular and deep white matter, which is most likely the sequela of mild chronic small vessel ischemic disease and is similar to the prior studies. No acute orbital pathology. No acute soft tissue abnormality. No fracture. Mucosal thickening and fluid in the right maxillary sinus may indicate sinusitis. Increased attenuation material within the right maxillary sinus could be the sequela of allergic fungal sinusitis. Mild amount of fluid in the right sphenoid sinus. The other visualized paranasal sinuses are predominantly clear. The mastoid air cells are clear. Impression: No acute intracranial findings. This document has been electronically signed by: Catarina Daniel MD on 02/21/2024 17:47:07
--- NOTE | ~2024-02-21 | XR_ITS ---
CLINICAL HISTORY: covid, low oxygen sats 1 view chest x-ray Comparison: CR - XR CHEST 2V - 02/09/20 08:14 EST Findings: No consolidation or effusion. Heart size is normal. No acute fracture. Prior right shoulder replacement. Severe scoliosis is present. There is osteopenia. IMPRESSION: 1. No acute findings. This document has been electronically signed by: Meryl Patino MD on 02/21/2024 17:01:01
[2024-02-21 13:54] VITALS: BP 119/59; PULSE 102; O2SAT 98
[2024-02-21 13:59] VITALS: BP 123/44; PULSE 81; RESP 18; TEMP 36.8; O2SAT 91; BMI 23.2
--- NOTE | 2024-02-21 14:19 | ED.GENADULT ---
HPI - General Adult General Chief complaint: General Medical Stated complaint: +COVID,,INCR WEAK,NO PO INTAKE,SEEN T-1 PER EMS Time Seen by Provider: 02/21/24 13:55 History of Present Illness ED Provider: Geovanna KULKARNI narrative: The patient is an 83-year-old female who has a history of cognitive impairment. She lives at home with her daughter. Apparently the patient fell yesterday and was brought to the emergency room for evaluation. She had a variety of testing done that did not show any acute injury but she did test positive for COVID. She was discharged home. This morning the patient seemed more confused than usual and also seemed too weak to get out of bed. The daughter called the PCP and the PCP's office advised the daughter to have the patient return to the emergency room. They called an ambulance and the patient was brought here. According to the daughter the patient had a temperature of 100.5 degrees last night. That is the highest fever that has been measured. The daughter feels the patient has been hallucinating today. Normally the patient is able to walk on her own. Today the patient was too weak to walk on her own. The daughter also says the patient has not had much oral intake over the last 1-2 days and worried she might be dehydrated. Related Data Home Medications ?Medication ?Instructions ?Recorded ?Confirmed acetaminophen 325 mg capsule 325 mg PO QID PRN 11/25/19 07/17/23 simethicone 80 mg tablet 80 mg PO BID-QID PRN 11/25/19 07/17/23 Previous Rx's ?Medication ?Instructions ?Recorded albuterol sulfate 90 mcg/actuation 2 puff PO Q4H PRN bronchospasm 04/05/22 aerosol inhaler #8.5 grams fexofenadine 180 mg tablet 180 mg PO DAILY PRN allergy 04/05/22 symptoms #90 tabs ascorbic acid (vitamin C) 250 mg 250 mg PO DAILY #30 tabs 05/10/22 tablet cholecalciferol (vitamin D3) 25 25 mcg PO DAILY 90 days #90 caps 07/04/22 mcg (1,000 unit) capsule multivitamin 1 tab PO DAILY #90 tabs 07/04/22 mometasone 0.1 % topical cream 1 appl topical BID PRN skin 09/24/22 irritation #45 grams amlodipine 10 mg tablet 10 mg PO DAILY #90 tabs 04/08/23 atorvastatin 10 mg tablet 10 mg PO DAILY #90 tabs 04/09/23 lisinopril 20 1 tab PO DAILY #90 tabs 04/09/23 mg-hydrochlorothiazide 12.5 mg tablet wheelchair #1 ea 07/15/23 cephalexin 250 mg capsule 250 mg PO BID #6 caps 08/25/23 alprazolam 0.5 mg tablet 0.5 mg PO BID #180 tabs 10/10/23 omeprazole 20 mg capsule,delayed 20 mg PO DAILY #90 caps 10/15/23 release fluticasone propionate 50 2 spray intranasal DAILY #15.8 mL 11/11/23 mcg/actuation nasal spray,suspension (Flonase Allergy Relief) sertraline 100 mg tablet 200 mg (2 x 100 mg) PO DAILY #180 02/15/24 tabs nirmatrelvir 300 mg (150 mg See Rx Instructions PO .COMPLEX 02/20/24 x2)-ritonavir 100 mg tablet,dose #30 ea pack (Paxlovid) Allergies Allergy/AdvReac Type Severity Reaction Status Date / Time meperidine [Demerol] Allergy Unknown Unknown Verified 02/21/24 14:02 morphine [MORPHINE] Allergy Unknown UNKNOWN Verified 02/21/24 14:02 Sulfa (Sulfonamide Allergy Unknown unknown Verified 02/21/24 14:02 Antibiotics) sulfur Allergy Unknown Unknown Verified 02/21/24 14:02 amoxicillin [From Augmentin] AdvReac Intermediate C diff Verified 02/21/24 14:02 clavulanic acid AdvReac Intermediate C diff Verified 02/21/24 14:02 [From Augmentin] [facility] Past Medical History Medical History Tiredness Fracture, humerus Shoulder impingement syndrome Tubular adenoma of colon Severe scoliosis COPD (chronic obstructive pulmonary disease) Hypercholesterolemia Hypertension Surgical History History of colonoscopy History of removal of ovarian cyst History of tonsillectomy S/P STORM-BSO Paraesophageal hernia Family History Family History Father CVD (cardiovascular disease) Heart failure Mother Cervical cancer Sister In good health Social History Social History Housing: House Alcohol intake: never Patient Tobacco Use Status: Never used Tobacco Tobacco use type: Cigarette e-Cigarette/Vaping Use: Never Used Second Hand Smoke Exposure: No service: No Current occupational status: retired Cognitive needs: Yes (Walker, cane, wheelchair) Hearing needs: No Vision needs: Yes (Glasses) Physical Exam ED Vital Signs: Vital Signs - 24 hr 02/21/24 13:59 02/21/24 15:22 02/21/24 17:11 Temperature 98.2 F 100.6 F H Pulse Rate 81 71 Respiratory Rate 18 23 H Blood Pressure 123/44 L 138/56 L Pulse Oximetry 91 L 94 Oxygen Delivery Method Room Air Room Air 02/21/24 18:50 02/21/24 21:45 Temperature 98.3 F 98.6 F Pulse Rate 88 Respiratory Rate 22 H Blood Pressure 128/71 Pulse Oximetry 94 Oxygen Delivery Method Room Air BMI result Body Mass Index 23.2 Const Other: The patient is a older woman who was awake and alert but seems obviously cognitively impaired. She was unable to tell me why she was here. She was expressing extreme frustration at being in the emergency room for a long time. HENMT Other: Face is symmetrical. Mucous membranes moist. Eyes General: appearance normal, both eyes and all related structures Neck Neck: Yes full ROM and Yes no lymphadenopathy Resp Effort & Inspection: normal respiratory effort Auscultation: clear to auscultation bilaterally Cardio Rate: regular rate Rhythm: regular rhythm Heart sounds: S1 normal heart sound present and S2 normal heart sound present GI Other: Abdomen is soft and nontender Skin Other: Skin is dry and unremarkable Neuro Other: The patient is awake and alert but is poorly oriented and seems to be demented. She was complaining that she has been in the emergency room for a long time and was ignored but could not tell me why she was in the emergency room. She could not tell me why an ambulance was called to bring her here. Cranial nerves are intact and she moves her extremities symmetrically. No obvious focal finding. Extrem Other: No peripheral edema Course Course Course Narrative: This is an RME: Additional HPI, ROS, PE not included below will be deferred to primary provider. RME assessment and note performed by: Ashley Bundy PA-C This is an 83-year-old female, with a past medical history of COPD, dementia, hypertension, hyperlipidemia, who presents emergency department via EMS from home after testing positive for COVID yesterday. Patient was seen here in the emergency room after a mechanical fall. She was sent home however family reports increased weakness, and family at bedside, granddaughter, stating that she saw a towel on her bed which she thought was a birthday cake. Granddaughter states that this is very unusual for her to hallucinate. She states that she has had increased confusion, and weakness. States that she was unable to get out of bed today. She is alert and oriented to self, and location. Patient was placed in fast track region, I quickly assessed patient, she states that her only concern is neck pain. Given neck pain, I notified charge nurse to move patient from the fast track region, to the main emergency department for further evaluation. Will obtain labs, CT head, neck. Patient found to have a rectal temperature of a 100.6?, ordered IV Tylenol. Will defer other exam findings as well as workup to primary provider. Medications Administered Discontinued Medications Generic Name Dose Route Start Last Admin Trade Name Taoq PRN Reason Stop Dose Admin Acetaminophen 1,000 mg in 100 mls @ 400 mls/hr 02/21/24 15:36 02/21/24 18:50 Ofirmev IV 02/21/24 15:50 Infused ONCE ONE Infusion Lactated Ringer's 1,000 mls @ 999 mls/hr 02/21/24 16:30 02/21/24 18:43 Lr IV 02/21/24 17:30 Infused .Q1H1M BRUNO Infusion Medical Decision Making Medical Decision Making [facility] Narrative: The patient is an 83-year-old woman who was in the emergency room yesterday and tested positive for COVID. She has been here following a fall and had not had a lot of symptoms of a respiratory infection. This morning apparently she was weaker than usual and not strong enough to get herself out of bed. Her family also felt that her cognitive impairment was worse than usual and that she might has been hallucinating. They called the PCP and was advised to bring her back to the emergency room. An ambulance brought her here. Today the patient's vital signs are unremarkable. Her physical exam is fairly unremarkable as well. She does not seem in obvious distress. She does not seem short of breath. She is not coughing much. She seems to have some dementia and exhibits behavioral traits of dementia but she does not seem obviously acutely ill. She has a white count of 4.4 with mild lymphopenia. Complete metabolic panel is unremarkable. CRP is mildly elevated at 0.73. A head CT was done today that is unremarkable. Chest x-ray is negative. Overall my impression is that the patient probably somewhat weak and ill from a COVID infection. I think it is unlikely she would get much benefit from Paxlovid. I spoke to the family about whether they might be able to care for her because the patient does seem quite weak although her vital signs are unremarkable. Apparently the patient's daughter has COVID also. Nevertheless the family feels they do have the ability to care for her at home and they are also concerned that her cognitive impairment might do poorly in the hospital. The patient's granddaughter, a nurse, arrived at the emergency room and confirmed that she is comfortable bringing the patient home. Lab Data 02/21/24 14:52 02/21/24 14:52 Labs: Lab Results 02/21/24 02/21/24 Range/Units 14:52 15:02 WBC 4.4 L (4.8-10.8) X10*3/uL RBC 4.47 (4.20-5.50) X10*6/uL Hgb 12.9 (12.0-16.0) g/dl Hct 37.4 (37.0-47.0) % MCV 83.7 (80.0-98.0) fL MCH 28.9 (27.0-33.0) pg MCHC 34.5 (31.0-35.0) g/dl RDW 13.3 (11.0-16.0) % Plt Count 143 L (160-400) X10*3/uL MPV 9.9 (9.4-12.3) fL Immature Gran % (Auto) 0.2 (0.0-0.4) % Neut % (Auto) 76.2 H (45-73) % Lymph % (Auto) 8.4 L (20-40) % [place] % (Auto) 15.0 H (2-11) % Eos % (Auto) 0.0 (0-4) % Baso % (Auto) 0.2 (0-2) % Lymph # (Auto) 0.4 L (1.2-4.9) X10*3/uL [place] # (Auto) 0.7 (0.1-1.2) X10*3/uL Eos # (Auto) 0.0 (0.0-0.4) X10*3/uL Baso # (Auto) 0.0 (0.0-0.2) X10*3/uL Abs Immat Gran (auto) 0.01 (0.00-0.03) X10*3/uL Absolute Neuts (auto) 3.3 (2.0-8.3) x10*3/uL Absolute Nucleated RBC 0.000 (0.0-0.012) X10*3/uL Nucleated RBC % (auto) 0.0 (0.0-0.2) /100WBC ESR 13 (0-20) MM/HR PT 14.1 H (10.9-12.4) SEC INR 1.2 H (0.9-1.1) Sodium 139 (135-145) mmol/L Potassium 3.5 (3.3-5.1) mmol/L Chloride 107 (96-108) mmol/L Carbon Dioxide 24 (22-29) mmol/L Anion Gap 12 (12-20) BUN 16 (9-16) mg/dL Creatinine 0.74 (0.5-1.4) mg/dL Estim Creat Clear Calc 49.7 Estimated GFR > 60 Random Glucose 95 (60-115) mg/dL Lactic Acid 0.8 (0.5-2.0) mmol/L Calcium 9.0 (8.4-10.2) mg/dL Magnesium 2.1 (1.6-2.6) mg/dL Total Bilirubin 0.3 (0.0-1.0) mg/dL Direct Bilirubin 0.1 (0.0-0.5) mg/dL AST 26 (5-31) U/L ALT 9 (0-31) U/L Alkaline Phosphatase 62 (39-117) U/L Troponin I High Sens 11.9 D (<3.5-17.0) ng/L C-Reactive Protein 0.73 H (< or = 0.50) mg/dL C-React Prot High Sens Cancelled Total Protein 7.1 (6.5-8.0) g/dL Albumin 3.8 (3.5-5.0) g/dL Lipase 14 (8-78) U/L A. phagocytophilum IgG Cancelled A. phagocytophilum IgM Cancelled A.phagocytophilum Intrp Cancelled A. phagocytophilum Cmmt Cancelled Lyme Screen IgG & IgM Cancelled Lyme Progressive Test Cancelled E. chaffeensis IgG Ab Cancelled E. chaffeensis IgM Ab Cancelled E. chaffeensis Interp Cancelled E. chaffeensis Comment Cancelled Independent Interpretation I performed an independent interpretation of an: EKG Interpretation: EKG at 14 40 shows sinus rhythm with premature atrial complexes in a pattern of bigeminy. Ventricular rate is 72 beats per minute. Discharge Plan Discharge Clinical Impression: COVID, Weakness Patient Disposition: Home, Self-Care Instructions: COVID-19 (Coronavirus Disease 2019) (ED) Additional Instructions: She has tested positive for COVID today. I suspect that her weakness and her confusion are related to the COVID. We are not finding any other obvious acute medical complication. She may have Tylenol for fever or discomfort. Encourage fluids. Stay in touch with your regular doctor for additional advice as needed. Return to the emergency room if worse. Prescriptions: No Action albuterol sulfate 90 mcg/actuation HFA aerosol inhaler 2 puff PO Q4H PRN (Reason: bronchospasm) Qty: 8.5 0RF fexofenadine 180 mg tablet 180 mg PO DAILY PRN (Reason: allergy symptoms) Qty: 90 3RF ascorbic acid (vitamin C) 250 mg tablet 250 mg PO DAILY Qty: 30 0RF multivitamin Tablet 1 tab PO DAILY Qty: 90 1RF cholecalciferol (vitamin D3) 25 mcg (1,000 unit) capsule 25 mcg PO DAILY 90 Days Qty: 90 1RF amlodipine 10 mg tablet 10 mg PO DAILY Qty: 90 3RF lisinopril-hydrochlorothiazide 20-12.5 mg tablet 1 tab PO DAILY Qty: 90 3RF atorvastatin 10 mg tablet 10 mg PO DAILY Qty: 90 3RF (DME) wheelchair See Rx Instructions .Route .MEDSUPPLY Qty: 1 0RF Rx Instructions: As directed alprazolam 0.5 mg tablet 0.5 mg PO BID Qty: 180 0RF Rx Instructions: Takes 1/2 a tab in the AM, full tab in the PM omeprazole 20 mg capsule,delayed release(DR/EC) 20 mg PO DAILY Qty: 90 2RF fluticasone propionate [Flonase Allergy Relief] 50 mcg/actuation spray,suspension 2 spray intranasal DAILY Qty: 15.8 1RF Rx Instructions: administer into each nostril sertraline 100 mg tablet 200 mg PO DAILY Qty: 180 2RF cephalexin 250 mg capsule 250 mg PO BID Qty: 6 0RF acetaminophen 325 mg capsule 325 mg PO QID PRN simethicone 80 mg tablet 80 mg PO BID-QID PRN mometasone 0.1 % cream 1 appl topical BID PRN (Reason: skin irritation) Qty: 45 0RF Rx Instructions: 1-2 week only Paxlovid 300 mg (150 mg x 2)-100 mg tablets,dose pack See Rx Instructions PO .COMPLEX Qty: 30 0RF Rx Instructions: take TWO 150 mg tablets of nirmatrelvir with ONE 100 mg tablet of ritonavir twice daily for 5 days PO Referrals: Po,Jaimee Ervin MD [Primary Care Provider] - (Covid) Interventions: ED Discharge Assessment Last Done: 02/21/24 21:45 Discharge Date/Time: 02/21/24 21:47 Print Language: Hebrew
--- NOTE | 2024-02-21 14:32 | ECG_ITS ---
Test Reason : ams Blood Pressure : */* mmHG Vent. Rate : 72 BPM Atrial Rate : 72 BPM P-R Int : 196 ms QRS Dur : 92 ms QT Int : 404 ms P-R-T Axes : 82 49 12 degrees QTcB Int : 442 ms Sinus rhythm with Premature atrial complexes in a pattern of bigeminy Nonspecific ST abnormality Abnormal ECG When compared with ECG of 25-Aug-2023 06:45, Premature atrial complexes are now Present Referred By: Ashley Bundy Electronically Signed By: MAL MAXWELL
[2024-02-21 15:01] LABS: MANUAL DIFF FLAG NO
[2024-02-21 15:04] LABS: Basophils Percent Auto 0.2 % (0-2); Hematocrit 37.4 % (37.0-47.0); Hemoglobin 12.9 g/dl (12.0-16.0); Imm Gran Abs Auto 0.01 X10*3/uL (0.00-0.03); Imm Gran Pct Auto 0.2 % (0.0-0.4); Lymphocytes Absolute Auto 0.4 X10*3/uL (1.2-4.9); Lymphocytes Percent Auto 8.4 % (20-40); Mean Corpuscular HGB Conc 34.5 g/dl (31.0-35.0); Mean Corpuscular Hemoglobin 28.9 pg (27.0-33.0); Mean Corpuscular Volume 83.7 fL (80.0-98.0); Mean Platelet Volume 9.9 fL (9.4-12.3); Monocytes Absolute Auto 0.7 X10*3/uL (0.1-1.2); Neutrophils Absolute Auto 3.3 x10*3/uL (2.0-8.3); Neutrophils Percent Auto 76.2 % (45-73); Platelet Count 143 X10*3/uL (160-400); Red Blood Count 4.47 X10*6/uL (4.20-5.50); Red Cell Distribution Width 13.3 % (11.0-16.0); White Blood Count 4.4 X10*3/uL (4.8-10.8)
[2024-02-21 15:14] LABS: INTERNATIONAL NORM RATIO 1.2 (0.9-1.1); Prothrombin Time 14.1 SEC (10.9-12.4)
--- NOTE | 2024-02-21 15:19 | PC.NURSE ---
Patient moved to ED1 d/t need for isolation room as provider is concerned about meningitis. RN to RN report given to Shira, IV in place, labs drawn, Pt on monitor, Rectal temp taken 100.6.
[2024-02-21 15:22] VITALS: TEMP 38.1
[2024-02-21 15:22] LABS: Lactic Acid 0.8 mmol/L (0.5-2.0)
[2024-02-21 15:30] LABS: Troponin-I High Sensitivity 11.9 ng/L (<3.5-17.0)
[2024-02-21 15:36] LABS: Alanine Aminotransferase 9 U/L (0-31); Albumin Level 3.8 g/dL (3.5-5.0); Anion Gap 12 (12-20); Aspartate Amino Transferase 26 U/L (5-31); Bilirubin Direct 0.1 mg/dL (0.0-0.5); Bilirubin Total 0.3 mg/dL (0.0-1.0); Blood Urea Nitrogen 16 mg/dL (9-16); Carbon Dioxide 24 mmol/L (22-29); Chloride 107 mmol/L (96-108); Creatinine Clr Calc Pharmacy 49.7; Estimated Glomerular Filt Rate > 60; Glucose Random 95 mg/dL (60-115); Lipase 14 U/L (8-78); Magnesium 2.1 mg/dL (1.6-2.6); Potassium 3.5 mmol/L (3.3-5.1); Sodium 139 mmol/L (135-145); Total Protein 7.1 g/dL (6.5-8.0)
[2024-02-21 15:48] LABS: Erythrocyte Sedimentation Rate 13 MM/HR (0-20)
[2024-02-21] MEDS: Acetaminophen 1,000 MG/100 ML PIGGYBACK 400 MG IV (16:12)
[2024-02-21 16:26] LABS: Alkaline Phosphatase 62 U/L (39-117)
[2024-02-21 16:50] LABS: C Reactive Protein 0.73 mg/dL (< or = 0.50)
[2024-02-21] MEDS: Lactated Ringers 1,000 ML 999 ML IV (17:10)
[2024-02-21 17:11] VITALS: BP 138/56; PULSE 71; RESP 23; O2SAT 94
[2024-02-21 18:50] VITALS: TEMP 36.8
--- NOTE | 2024-02-21 18:50 | PC.NURSE ---
Ambulation trial with Pt per request of provider. Pt unable to tolerate d/t feeling weak. Provider notified. Pt provided with crackers and milk for PO challenge.
[2024-02-21 21:45] VITALS: BP 128/71; PULSE 88; RESP 22; TEMP 37; O2SAT 94
[2024-02-26 13:48] LABS: Babesia IgG <1:64 titer (<1:64); Babesia IgM <1:20 titer (<1:20)
== END 2024-02-21 21:47 | disposition home or self-care (01) ==
PROVIDERS: Physician Assistant Medical; Emergency Provider Emergency Medicine; PCP Internal Medicine
DX: U07.1 COVID-19 (principal); R53.1 Weakness; R50.9 Fever, unspecified; I10 Essential (primary) hypertension; E78.00 Pure hypercholesterolemia, unspecified; J44.9 Chronic obstructive pulmonary disease, unspecified; F41.1 Generalized anxiety disorder; R00.1 Bradycardia, unspecified; Z79.899 Other long term (current) drug therapy; Z79.02 Long term (current) use of antithrombotics/antiplatelets
CPT/HCPCS: 36415; 70450; 71045; 80048; 80076; 83605; 83690; 83735; 84484; 85025; 85610; 85652; 86140; 86141; 86617; 86618; 86666; 86753; 87040; 93005; 96365; 96366; 99284; 99285; J0131; J7120

== ENCOUNTER → 2024-02-21 14:32 | Outpatient (BNV) | payer MEDICARE, SELFPAY | PROVIDERS: Emergency Provider Emergency Medicine; PCP Internal Medicine; Visit Provider Internal Medicine | DX: R94.31 Abnormal electrocardiogram [ECG] [EKG] (principal) | CPT/HCPCS: 93010 ==

== ENCOUNTER → 2024-02-21 14:38 | Outpatient (BNV) | payer MEDICARE, SELFPAY | PROVIDERS: Emergency Provider Emergency Medicine; PCP Internal Medicine; Visit Provider Radiology Diagnostic Radiology | DX: R41.82 Altered mental status, unspecified (principal); U07.1 COVID-19; R09.02 Hypoxemia | CPT/HCPCS: 70450; 71045 ==

== ENCOUNTER 2024-02-25 20:59 | Emergency (ER) | payer MEDICARE, SELFPAY ==
[2024-02-25 21:02] VITALS: BP 155/95; PULSE 82; O2SAT 96
[2024-02-25 21:09] VITALS: BP 130/75; PULSE 62; RESP 16; TEMP 36.6; O2SAT 94; BMI 25.6
[2024-02-25 21:12] VITALS: BP 130/74; PULSE 64; RESP 24; TEMP 36.6; O2SAT 91
[2024-02-25 22:25] VITALS: BP 129/70; PULSE 58; RESP 15; O2SAT 93
[2024-02-25 23:11] VITALS: BP 131/95; PULSE 62; RESP 12; O2SAT 94
[2024-02-26 00:18] LABS: Appearance Urine Clear; Color Urine Yellow; Glucose Urine UA Negative (Negative); Leukocyte Esterase Urine Moderate (2+) (Negative); Nitrite Urine Negative (Negative); PH 6.5 (5.0-9.0); UMIC TRIGGER UACC YES; Urine Blood Negative (Negative); Urine Ketones 15 mg/dL (Negative); Urine Protein Negative (Neg-Trace)
[2024-02-26 00:26] LABS: Bacteria Urine None Seen (None Seen); Hyaline Casts Urine 0-2 /LPF (0-2); RBC Urine 0-2 /HPF (0-2); Squamous Epithelial Cell Urine 0-2 /HPF (0-2); UACC Culture Trigger YES
--- NOTE | 2024-02-26 00:39 | ED.FEMALEGU ---
HPI - Female Genitourinary General Chief complaint: Urogenital-Female Stated complaint: covid +, ?uti Time Seen by Provider: 02/25/24 22:56 Source: family Limitations: other (Cognitive impairment) History of Present Illness ED Provider: Lavonne Mane PA-C HPI Narrative: 83-year-old female with a history of dementia, gait instability, recurrent UTIs, presents with concern for UTI. Patient's daughter is here at bedside, she feels that her mother is not at her baseline mentation, she is concerned she may have a UTI. The patient also tested positive for COVID last week. Related Data Home Medications ?Medication ?Instructions ?Recorded ?Confirmed acetaminophen 325 mg capsule 325 mg PO QID PRN 11/25/19 07/17/23 simethicone 80 mg tablet 80 mg PO BID-QID PRN 11/25/19 07/17/23 Previous Rx's ?Medication ?Instructions ?Recorded albuterol sulfate 90 mcg/actuation 2 puff PO Q4H PRN bronchospasm 04/05/22 aerosol inhaler #8.5 grams fexofenadine 180 mg tablet 180 mg PO DAILY PRN allergy 04/05/22 symptoms #90 tabs ascorbic acid (vitamin C) 250 mg 250 mg PO DAILY #30 tabs 05/10/22 tablet cholecalciferol (vitamin D3) 25 25 mcg PO DAILY 90 days #90 caps 07/04/22 mcg (1,000 unit) capsule multivitamin 1 tab PO DAILY #90 tabs 07/04/22 mometasone 0.1 % topical cream 1 appl topical BID PRN skin 09/24/22 irritation #45 grams amlodipine 10 mg tablet 10 mg PO DAILY #90 tabs 04/08/23 atorvastatin 10 mg tablet 10 mg PO DAILY #90 tabs 04/09/23 lisinopril 20 1 tab PO DAILY #90 tabs 04/09/23 mg-hydrochlorothiazide 12.5 mg tablet wheelchair #1 ea 07/15/23 cephalexin 250 mg capsule 250 mg PO BID #6 caps 08/25/23 alprazolam 0.5 mg tablet 0.5 mg PO BID #180 tabs 10/10/23 omeprazole 20 mg capsule,delayed 20 mg PO DAILY #90 caps 10/15/23 release fluticasone propionate 50 2 spray intranasal DAILY #15.8 mL 11/11/23 mcg/actuation nasal spray,suspension (Flonase Allergy Relief) sertraline 100 mg tablet 200 mg (2 x 100 mg) PO DAILY #180 02/15/24 tabs nirmatrelvir 300 mg (150 mg See Rx Instructions PO .COMPLEX 02/20/24 x2)-ritonavir 100 mg tablet,dose #30 ea pack (Paxlovid) cephalexin 500 mg capsule 500 mg PO BID #13 caps 02/26/24 Allergies Allergy/AdvReac Type Severity Reaction Status Date / Time meperidine [Demerol] Allergy Unknown Unknown Verified 02/25/24 21:11 morphine [MORPHINE] Allergy Unknown UNKNOWN Verified 02/25/24 21:11 Sulfa (Sulfonamide Allergy Unknown unknown Verified 02/25/24 21:11 Antibiotics) sulfur Allergy Unknown Unknown Verified 02/25/24 21:11 amoxicillin [From Augmentin] AdvReac Intermediate C diff Verified 02/25/24 21:11 clavulanic acid AdvReac Intermediate C diff Verified 02/25/24 21:11 [From Augmentin] Review of Systems Review of Systems: Unable to obtain secondary to dementia Yes all other systems are reviewed and are negative [facility] Past Medical History Attestation statement: The following information was validated with the patient. Medical History Tiredness Fracture, humerus Shoulder impingement syndrome Tubular adenoma of colon Severe scoliosis COPD (chronic obstructive pulmonary disease) Hypercholesterolemia Hypertension Surgical History History of colonoscopy History of removal of ovarian cyst History of tonsillectomy S/P STORM-BSO Paraesophageal hernia Family History Family History Father CVD (cardiovascular disease) Heart failure Mother Cervical cancer Sister In good health Social History Social History Housing: House Alcohol intake: never Patient Tobacco Use Status: Never used Tobacco Tobacco use type: Cigarette e-Cigarette/Vaping Use: Never Used Second Hand Smoke Exposure: No Advance Directives: No Advance Directives Information Provided: Yes service: No Current occupational status: retired Cognitive needs: Yes (Walker, cane, wheelchair) Hearing needs: No Vision needs: Yes (Glasses) Physical Exam Vital Signs: Vital Signs: Last Vital Signs Temp 97.9 F 02/25/24 21:12 Pulse 64 02/25/24 21:12 Resp 24 H 02/25/24 21:12 BP 130/74 02/25/24 21:12 Pulse Ox 91 L 02/25/24 21:12 O2 Del Method Room Air 02/25/24 21:12 BMI result Body Mass Index 25.6 Const: Other: Awake Orientation/consciousness: oriented to person Resp: Effort & Inspection: normal respiratory effort Cardio: Other: Normal peripheral perfusion Skin: Other: Warm dry no rash Neuro: General: oriented to person, no focal motor deficits and CN's II-XI intact bilaterally Psych: Other: Cooperative Medical Decision Making Medical Decision Making MDM Narrative: 83-year-old female with a history of dementia, gait instability, recurrent UTIs, presents with concern for UTI. Patient's daughter is here at bedside, she feels that her mother is not at her baseline mentation, she is concerned she may have a UTI. The patient also tested positive for COVID last week. Problem: Dementia, recurrent UTIs History: Per patient's daughter I have considered the following differential diagnoses: Pyelonephritis, UTI, behavioral change, worsening dementia, Plan: There was evidence of questionable UTI, we will err on the side of caution and treat the patient was cephalexin. The patient can follow up with her primary care provider. I have independently reviewed the following tests: Labs: Questionable UTI Lab Data Labs: Lab Results 02/26/24 Range/Units 00:11 Urine Color Yellow Urine Appearance Clear Urine pH 6.5 (5.0-9.0) Ur Specific [place] 1.020 (1.005-1.025) Urine Protein Negative (Neg-Trace) mg/dL Urine Glucose (UA) Negative (Negative) mg/dL Urine Ketones 15 (Negative) mg/dL Urine Blood Negative (Negative) Urine Nitrite Negative (Negative) Ur Leukocyte Esterase Moderate (2+) H (Negative) Urine RBC 0-2 (0-2) /HPF Urine WBC 11-20 H (0-5) /HPF Ur Squamous Epith Cells 0-2 (0-2) /HPF Urine Bacteria None Seen (None Seen) Hyaline Casts 0-2 (0-2) /LPF Discharge Plan Discharge Clinical Impression: Urinary tract infection Patient Disposition: Home, Self-Care Instructions: Urinary Tract Infection in Older Adults (ED) Additional Instructions: It is questionable that you have a urinary tract infection, the sample will be sent for culture to verify the presence of a true urinary tract infection. In the meantime, take the cephalexin as directed. Follow up with your primary care provider next week. Prescriptions: New cephalexin 500 mg capsule 500 mg PO BID Qty: 13 0RF No Action albuterol sulfate 90 mcg/actuation HFA aerosol inhaler 2 puff PO Q4H PRN (Reason: bronchospasm) Qty: 8.5 0RF fexofenadine 180 mg tablet 180 mg PO DAILY PRN (Reason: allergy symptoms) Qty: 90 3RF ascorbic acid (vitamin C) 250 mg tablet 250 mg PO DAILY Qty: 30 0RF multivitamin Tablet 1 tab PO DAILY Qty: 90 1RF cholecalciferol (vitamin D3) 25 mcg (1,000 unit) capsule 25 mcg PO DAILY 90 Days Qty: 90 1RF amlodipine 10 mg tablet 10 mg PO DAILY Qty: 90 3RF lisinopril-hydrochlorothiazide 20-12.5 mg tablet 1 tab PO DAILY Qty: 90 3RF atorvastatin 10 mg tablet 10 mg PO DAILY Qty: 90 3RF (DME) wheelchair See Rx Instructions .Route .MEDSUPPLY Qty: 1 0RF Rx Instructions: As directed alprazolam 0.5 mg tablet 0.5 mg PO BID Qty: 180 0RF Rx Instructions: Takes 1/2 a tab in the AM, full tab in the PM omeprazole 20 mg capsule,delayed release(DR/EC) 20 mg PO DAILY Qty: 90 2RF fluticasone propionate [Flonase Allergy Relief] 50 mcg/actuation spray,suspension 2 spray intranasal DAILY Qty: 15.8 1RF Rx Instructions: administer into each nostril sertraline 100 mg tablet 200 mg PO DAILY Qty: 180 2RF cephalexin 250 mg capsule 250 mg PO BID Qty: 6 0RF acetaminophen 325 mg capsule 325 mg PO QID PRN simethicone 80 mg tablet 80 mg PO BID-QID PRN mometasone 0.1 % cream 1 appl topical BID PRN (Reason: skin irritation) Qty: 45 0RF Rx Instructions: 1-2 week only Paxlovid 300 mg (150 mg x 2)-100 mg tablets,dose pack See Rx Instructions PO .COMPLEX Qty: 30 0RF Rx Instructions: take TWO 150 mg tablets of nirmatrelvir with ONE 100 mg tablet of ritonavir twice daily for 5 days PO Print Language: Turkmen
[2024-02-26 01:10] VITALS: BP 140/71; PULSE 62; RESP 12; O2SAT 94
[2024-02-26] MEDS: cephALEXin 500 MG CAPSULE PO (01:13)
[2024-02-26 01:25] VITALS: BP 140/71; PULSE 62; RESP 12; TEMP 36.6; O2SAT 94
== END 2024-02-26 01:25 | disposition home or self-care (01) ==
PROVIDERS: Emergency Provider Emergency Medicine
DX: N39.0 Urinary tract infection, site not specified (principal); U07.1 COVID-19
CPT/HCPCS: 81001; 87086; 99283; 99284

== ENCOUNTER 2024-03-03 09:02 | Inpatient (IN) | payer MEDICARE, SELFPAY ==
--- NOTE | ~2024-03-03 | CT_ITS ---
EXAMINATION: CT ANGIOGRAM HEAD AND NECK CLINICAL INFORMATION: Left-sided body weakness, concern for stroke. COMPARISON: No prior CTA. Noncontrast head CT performed earlier same day. TECHNIQUE: CT angiography of the head and neck performed following intravenous bolus administration 70 mL of Omnipaque 350 contrast. Helical imaging was performed in the axial plane from the aortic arch to the skull vertex. A [address] head was also obtained. The data was processed at the remote sensing technologist's workstation for generation of MIP sequences. Angled MIPs and volume rendered reformatted images were also generated at an offline 3D workstation. Stenoses are assessed in accordance with NASCET criteria unless otherwise indicated. This CT examination was performed using dose optimization techniques as appropriate, variously including the following: *Automated exposure control *Adjustment of mA and/or kV according to patient size (this includes techniques or standardized protocols for targeted exams where dose is matched to indication/reason for exam; i.e. extremities or head) *Use of iterative reconstruction technique FINDINGS: NECK CTA: -AORTIC ARCH: Uncoiled, normal in caliber. Mild soft and calcific atheromatous plaque. -GREAT VESSEL ORIGINS: 2 vessel branching pattern. Great vessels are widely patent. -RIGHT COMMON CAROTID ARTERY: Normal in course and caliber to the level of the bifurcation. -CERVICAL RIGHT INTERNAL CAROTID ARTERY: Mild calcific atherosclerotic disease of the carotid bulb and proximal internal carotid artery without flow-limiting stenosis. -LEFT COMMON CAROTID ARTERY: Normal in course and caliber to the level of the bifurcation. -CERVICAL LEFT INTERNAL CAROTID ARTERY: Mild calcific atherosclerotic disease of the carotid bulb and proximal internal carotid artery without flow-limiting stenosis. -CERVICAL RIGHT VERTEBRAL ARTERY: Codominant. Normal origin. Normal course and caliber into the skull base. -CERVICAL LEFT VERTEBRAL ARTERY: Codominant. Normal origin. Normal course and caliber into the skull base. OTHER, SOFT TISSUES: -Paranasal sinus opacification, right maxillary, right sphenoid, bilateral ethmoid, and bilateral frontal recesses. -Heterogeneous thyroid gland with probable thyroid nodules, poorly defined by CT. -No adenopathy or mass within the neck. -Imaged lung apices are somewhat motion degraded, but demonstrate no consolidation or abnormal opacities. -Exaggerated cervical lordosis with mild degenerative changes throughout. CTA OF THE BRAIN: -INTRACRANIAL INTERNAL CAROTID ARTERIES: Minimal calcific plaque. Normal in course and caliber without aneurysm, or flow-limiting stenosis. -RIGHT ANTERIOR CEREBRAL ARTERY: Normal A1 segment. Normal arborization of the distal segments. -LEFT ANTERIOR CEREBRAL ARTERY: Normal A1 segment. Normal arborization of the distal segments. -ANTERIOR COMMUNICATING ARTERY: Normal. -RIGHT MIDDLE CEREBRAL ARTERY: Normal M1 segment of the MCA without focal stenosis or occlusion. Normal arborization of the distal segments. -LEFT MIDDLE CEREBRAL ARTERY: Normal M1 segment of the MCA without focal stenosis or occlusion. Normal arborization of the distal segments. -RIGHT VERTEBRAL ARTERY V4: Normal in course and caliber. Normal right PICA branch. -LEFT VERTEBRAL ARTERY V4: Normal in course and caliber. Extradural takeoff of the left PICA. -BASILAR ARTERY: Normal without focal stenosis or occlusion. Normal AICAs. Normal appearance of the proximal superior cerebellar arteries. Normal basilar tip. -RIGHT POSTERIOR CEREBRAL ARTERY: Normal P1 segment. Normal opacification of the distal LIFE CYCLE ASSESSMENT ANALYST segments. -LEFT POSTERIOR CEREBRAL ARTERY: Normal P1 segment. Normal opacification of the distal LIFE CYCLE ASSESSMENT ANALYST segments. -POSTERIOR COMMUNICATING ARTERIES: The left is diminutive but present. The right is not well seen. Normal opacification of the superior sagittal, straight, transverse, and sigmoid sinuses. No venous thrombosis. Delayed images of the brain demonstrate no definite developing territory infarct. No space-occupying hemorrhage. CT/CT angio head neck STROKE IMPRESSION: 1. No evidence of significant stenosis, occlusion, dissection, or aneurysm in the intracranial or major cervical arterial vasculature. 2. Ancillary findings as discussed. Electronically signed by: Navid Marshall MD 03/03/2024 11:31 AM [facility] [place]
--- NOTE | ~2024-03-03 | MR_ITS ---
CLINICAL HISTORY: Slurred speech, left hemiparesis, l facial droop MR Brain without intravenous contrast. Comparison: Head CT from 03/03/2024 Findings: No restricted diffusion acute brain infarction. No acute intracranial hemorrhage or peripheral siderosis. 0.4 cm nodules susceptibility in right frontal lobe is superior right basal ganglia region and nonspecific. Differential considerations include focus of the amyloid angiopathy, sequela of hypertension, and cavernous malformation. Hypervascular metastasis is not excluded by noncontrast imaging and considered less likely. Multiple additional analogous lesions noted in the left frontal lobe measuring up to 0.3 cm. Mild-moderate white matter pathology is nonspecific and likely related to small-vessel ischemic disease. Perivascular spaces noted. No hydrocephalus accounting for mild generalized volume loss. Small cavum velum interpositum. No midline shift. Abnormal signal with multifocal fluid and abnormal diffusion signal concerning for sinusitis particularly in the right side of the sphenoid sinus and right maxillary sinus with occlusion of the right maxillary sinus and fluid of the multiple ethmoid air cells. Imaged orbits are unremarkable for technique and artifacts. Small bilateral mastoid effusions. IMPRESSION: 1. No restricted diffusion acute brain infarction. 2. Mild nonacute white matter pathology is nonspecific and likely due to small-vessel ischemic disease. 3. Small nodules susceptibility are nonspecific i including in the frontal lobes. Differential considerations include small focus of the amyloid angiopathy and sequela of hypertension. Please consider attention on follow-up to ensure stability and help exclude any potential growth. Findings of amyloid angiopathy are favored by imaging at this time. 4. Abnormal signal of the paranasal sinuses as can be associated with sinusitis. This document has been electronically signed by: Carlos Ballesteros MD on 03/03/2024 21:55:36
--- NOTE | ~2024-03-03 | CT_ITS ---
EXAMINATION: CT HEAD WITHOUT CONTRAST (STROKE PROTOCOL) CLINICAL INFORMATION: Stroke protocol. Left-sided the COMPARISON: CT brain 02/21/2024. TECHNIQUE: Contiguous axial imaging was performed from the skull base to vertex without intravenous administration of contrast. This CT examination was performed using dose optimization techniques as appropriate, variously including the following: *Automated exposure control *Adjustment of mA and/or kV according to patient size (this includes techniques or standardized protocols for targeted exams where dose is matched to indication/reason for exam; i.e. extremities or head) *Use of iterative reconstruction technique. DLP: 762 mGy/cm. FINDINGS: There is no acute intra-axial, extra-axial bleed, masses or midline shift. There is no acute infarction in evolution. There is no edema. Watson to white matter differentiation is maintained normal. The lateral ventricles are symmetrical in size and configuration without enlargement. CT/CT head for STROKE IMPRESSION: No acute intracranial process seen This critical result was discussed with Dr. Tanner at 9:34 AM on 03/03/2024. It was ascertained that the content and urgency of the report was understood at the time of direct communication. Electronically signed by: Santiago Rosales MD 03/03/2024 09:36 AM [facility] [place]
--- NOTE | ~2024-03-03 | XR_ITS ---
EXAMINATION: XR CHEST CLINICAL INFORMATION: Stroke COMPARISON: 02/21/2024. TECHNIQUE: AP portable view of the chest was obtained. FINDINGS: Cardiac, hilar, and mediastinal contours appear normal. Aorta is calcified and tortuous. Lungs appear clear bilaterally. No pneumothorax or effusion. Moderate to severe right convex thoracic scoliosis with spondylosis. Severe degenerative arthrosis left shoulder joint. Loose body in the left glenohumeral joint recess. Reverse arthroplasty right shoulder joint without complication. XR/XR chest 1V IMPRESSION: No active pulmonary disease. No change. Electronically signed by: Navid Marshall MD 03/03/2024 10:48 AM [facility]
[2024-03-03 09:06] VITALS: BP 115/67; PULSE 79; RESP 16; TEMP 38.3; O2SAT 93; BMI 20.9
[2024-03-03 09:16] LABS: Glucose, Whole Blood 116 mg/dL (60-115)
--- NOTE | 2024-03-03 09:17 | ECG_ITS ---
Test Reason : STROKE Blood Pressure : */* mmHG Vent. Rate : 77 BPM Atrial Rate : 77 BPM P-R Int : 194 ms QRS Dur : 88 ms QT Int : 384 ms P-R-T Axes : 65 50 56 degrees QTcB Int : 434 ms Sinus rhythm with occasional Premature ventricular complexes Minimal voltage criteria for LVH, may be normal variant ( Sokolow-Fried ) Cannot rule out Anterior infarct , age undetermined Abnormal ECG When compared with ECG of 21-Feb-2024 14:40, Premature ventricular complexes are now Present Premature atrial complexes are no longer Present Referred By: Miriam Tanner Electronically Signed By: RADHA WILLS MD
--- NOTE | 2024-03-03 09:25 | ED.NEUROSD ---
HPI - Neuro Symptoms/Deficit General Chief Complaint: Stroke Stated Complaint: ?STROKE,LKWT 8PM,+UTI,+COVID,L DROOP/WEAK,-THINNER Time Seen by Provider: 03/03/24 09:16 Source: patient, EMS and old records reviewed Mode of arrival: EMS Limitations: other (History of dementia) History of Present Illness ED Provider: DR. Tanner HPI Narrative: 83-year-old female came in by ambulance as a stroke alert, patient last known well was 20:00 before going to bed last night at a 08:00 daughter notice left side body weakness after the patient could not hold a cup of water with her left hand and dropped it, daughter also noticed left facial droop, no speech abnormality. called 911. Patient is not taking anticoagulation recently diagnosed with COVID in our ED. patient overall is a poor historian. 10:50 daughter now at the bedside providing history, patient has been deconditioning after had COVID 2 weeks ago, complains of generalized body ache but also left upper extremity pain, patient usually take her medication orally using a strong daughter noticed that she was not able to swallow her medicine, daughter stated that her slurred speech was slightly worsening. Daughter added that the patient was supposed to take her last dose of antibiotic for UTI. Related Data Home Medications ?Medication ?Instructions ?Recorded ?Confirmed acetaminophen 325 mg capsule 325 mg PO QID PRN Pain 11/25/19 03/03/24 alprazolam 0.5 mg tablet 0.25 mg PO DAILY 03/03/24 03/03/24 alprazolam 0.5 mg tablet 0.5 mg PO BEDTIME 03/03/24 03/03/24 cetirizine 10 mg capsule (Zyrtec) 10 mg PO DAILY 03/03/24 03/03/24 omeprazole 20 mg capsule,delayed 20 mg PO DAILY@0630 03/03/24 03/03/24 release Previous Rx's ?Medication ?Instructions ?Recorded albuterol sulfate 90 mcg/actuation 2 puff PO Q4H PRN bronchospasm 04/05/22 aerosol inhaler #8.5 grams cholecalciferol (vitamin D3) 25 25 mcg PO DAILY 90 days #90 caps 07/04/22 mcg (1,000 unit) capsule mometasone 0.1 % topical cream 1 appl topical BID PRN skin 09/24/22 irritation #45 grams amlodipine 10 mg tablet 10 mg PO DAILY #90 tabs 04/08/23 atorvastatin 10 mg tablet 10 mg PO DAILY #90 tabs 04/09/23 lisinopril 20 1 tab PO DAILY #90 tabs 04/09/23 mg-hydrochlorothiazide 12.5 mg tablet wheelchair #1 ea 07/15/23 fluticasone propionate 50 2 spray intranasal DAILY #15.8 mL 11/11/23 mcg/actuation nasal spray,suspension (Flonase Allergy Relief) sertraline 100 mg tablet 200 mg (2 x 100 mg) PO DAILY #180 02/15/24 tabs Allergies Allergy/AdvReac Type Severity Reaction Status Date / Time meperidine [Demerol] Allergy Unknown Unknown Verified 03/03/24 09:10 morphine [MORPHINE] Allergy Unknown UNKNOWN Verified 03/03/24 09:10 Sulfa (Sulfonamide Allergy Unknown unknown Verified 03/03/24 09:10 Antibiotics) sulfur Allergy Unknown Unknown Verified 03/03/24 09:10 amoxicillin [From Augmentin] AdvReac Intermediate C diff Verified 03/03/24 09:10 clavulanic acid AdvReac Intermediate C diff Verified 03/03/24 09:10 [From Augmentin] Review of Systems Review of Systems: All other systems are reviewed and are negative Constitutional: Reports as per HPI and Reports no additional constitutional complaints Eyes: Reports as per HPI and Reports no additional eye complaints Reports system reviewed and no additional complaints, except as documented Cardiovascular: Reports as per HPI and Reports no additional cardiovascular complaints Respiratory: Reports as per HPI and Reports no additional respiratory complaints Gastrointestinal: Reports as per HPI and Reports no additional gastrointestinal complaints Genitourinary: Reports no additional female genitourinary complaints Musculoskeletal: Reports no additional musculoskeletal complaints Skin/Breast: Reports system reviewed and no additional complaints, except as docu Psychiatric: Reports no additional psychiatric complaints Endocrine: Reports no additional endocrine complaints Hematologic/Lymphatic: Reports no additional hematologic/lymphatic complaints Allergic/Immunologic: Reports no additional allergic/immunologic complaints Reports system reviewed and no additional complaints, except as documented and Reports Abnormal speech present [facility] Past Medical History Medical History Tiredness Fracture, humerus Shoulder impingement syndrome Tubular adenoma of colon Severe scoliosis COPD (chronic obstructive pulmonary disease) Hypercholesterolemia Hypertension Surgical History History of colonoscopy History of removal of ovarian cyst History of tonsillectomy S/P STORM-BSO Paraesophageal hernia Family History Family History Father CVD (cardiovascular disease) Heart failure Mother Cervical cancer Sister In good health Social History Social History Housing: House Unable to assess alcohol history related to: Unknown Alcohol intake: never Patient Tobacco Use Status: Never used Tobacco Tobacco use type: Cigarette Smoked in Last 30 Days: No e-Cigarette/Vaping Use: Never Used Second Hand Smoke Exposure: No Use of substances other than those prescribed or required for medical reasons: No Advance Directives: No Do you have a plan to hurt others: No Plan service: No Current occupational status: retired Cognitive needs: Yes (Walker, cane, wheelchair) Hearing needs: No Vision needs: Yes (Glasses) Physical Exam Vital Signs: Vital Signs: Last Vital Signs Temp 99.4 F 03/03/24 14:18 Pulse 79 03/03/24 09:06 Resp 16 03/03/24 09:06 BP 115/67 03/03/24 09:06 Pulse Ox 93 03/03/24 09:06 O2 Del Method Room Air 03/03/24 09:06 BMI result Body Mass Index 20.9 Vital signs have been reviewed and appear to be correct. Blood pressure elevated. Heart rate normal. Respiratory rate normal. Temperature normal. Oxygen saturation normal. Appearance: Alert. Oriented X3. No acute distress. Head: Normal external exam. Normocephalic. Atraumatic. No Jacinto signs noted. No raccoon eyes noted Eyes: PERRLA. EOMI. Conjunctiva and sclera normal. Eyelids normal. ENT: TM's Normal. Pharynx normal. Uvula midline. Moist mucous membranes. No trismus noted. No drooling noted. No muffled voice noted. Neck: Normal inspection. Neck supple. FROM. No adenopathy. Thyroid Normal. No meningeal signs. No neck mass noted. CVS: Normal heart rate and rhythm. Heart sound normal. No murmurs noted. Pulses normal throughout. Respiratory: No respiratory distress. Painless inspiration. Breath sounds normal. No wheezes/rales/rhonchi noted. Chest nontender. No accessory muscle usage noted or decreased air movement noted. Abdomen: Soft and nontender. Bowel sounds normal in all 4 quadrants. No distention noted. No organomegaly noted. No visible injury noted. Back: No CVA tenderness. Full range of motion noted. Skin: Skin warm and dry. Normal skin color. Normal skin turgor. No rashes/lesions/lacerations noted. Extremities: No lower extremity edema. Extremities exhibit normal range of motion. Extremities nontender. Neuro: Oriented X 3. Cranial nerve exam: Mild left facial droop. Mild left upper extremity pronator drift, left lower extremity weakness. Course Reevaluation(s) Reevaluation #1: 83-year-old female came in by EMS as a stroke protocol, patient's symptoms almost completely resolved NIH score 3. Fever secondary to COVID-19 infection. Time: 16:20 Medications Administered Discontinued Medications Generic Name Dose Route Start Last Admin Trade Name Freq PRN Reason Stop Dose Admin Aspirin 325 mg 03/03/24 09:45 03/03/24 10:43 Aspirin 325 Mg Tablet PO 03/03/24 09:46 Not Given ONCE ONE Ceftriaxone Sodium 1 gm 03/03/24 10:52 03/03/24 12:04 Ceftriaxone Sodium 1 Gm Vial IVPUSH 03/03/24 10:53 1 gm ONCE ONE Administration Potassium Chloride 10 meq in 100 mls @ 100 mls/hr 03/03/24 10:12 03/03/24 12:15 Potassium Chloride/H20 IV 03/03/24 11:11 Infused ONCE ONE Infusion Acetaminophen 1,000 mg in 100 mls @ 400 mls/hr 03/03/24 10:52 03/03/24 12:19 Ofirmev IV 03/03/24 11:06 Infused ONCE ONE Infusion Sodium Chloride 1,000 mls @ 999 mls/hr 03/03/24 10:52 03/03/24 13:06 Ns IV 03/03/24 11:52 Infused .Q1H1M ONE Infusion Iohexol 100 ml 03/03/24 10:59 03/03/24 10:59 Iohexol 350 Mg/Ml 100 Ml Infus..Btl IV 03/03/24 11:00 70 ml ONCE ONE Administration Potassium Chloride 40 meq 03/03/24 10:12 03/03/24 10:44 Potassium Chloride Packet 20 Meq Packet PO 03/03/24 10:13 Not Given ONCE ONE Medical Decision Making Differential Diagnosis Differential Diagnoses: The differential diagnosis associated with the presentation includes (TIA, stroke, UTI, pneumonia, intracranial bleed, electrolyte derangement, severe anemia.) Admission/Observation Consideration of admission/observation: Escalation of care including admission/observation considered Consult Healthcare Provider Management of the patient was discussed with: Hospitalist (Dr. Palacios) and Car Framer (Dr. Bo) Lab Data MDM Lab Attestation statement: I reviewed the patient's lab results. 03/03/24 09:31 03/03/24 09:31 Labs: Lab Results 03/03/24 03/03/24 03/03/24 Range/Units 09:08 09:09 09:31 WBC 10.4 (4.8-10.8) X10*3/uL RBC 5.07 (4.20-5.50) X10*6/uL Hgb 14.4 (12.0-16.0) g/dl Hct 41.6 (37.0-47.0) % MCV 82.1 (80.0-98.0) fL MCH 28.4 (27.0-33.0) pg MCHC 34.6 (31.0-35.0) g/dl RDW 12.8 (11.0-16.0) % Plt Count 256 D (160-400) X10*3/uL MPV 9.6 (9.4-12.3) fL Immature Gran % (Auto) 0.4 (0.0-0.4) % Neut % (Auto) 80.3 H (45-73) % Lymph % (Auto) 8.2 L (20-40) % [place] % (Auto) 10.9 (2-11) % Eos % (Auto) 0.0 (0-4) % Baso % (Auto) 0.2 (0-2) % Lymph # (Auto) 0.9 L (1.2-4.9) X10*3/uL [place] # (Auto) 1.1 (0.1-1.2) X10*3/uL Eos # (Auto) 0.0 (0.0-0.4) X10*3/uL Baso # (Auto) 0.0 (0.0-0.2) X10*3/uL Abs Immat Gran (auto) 0.04 H (0.00-0.03) X10*3/uL Absolute Neuts (auto) 8.3 (2.0-8.3) x10*3/uL Absolute Nucleated RBC 0.000 (0.0-0.012) X10*3/uL Nucleated RBC % (auto) 0.0 (0.0-0.2) /100WBC PT 17.9 H D (10.9-12.4) SEC Whole Blood PT 17.6 H (11.1-13.5) sec INR 1.5 H (0.9-1.1) Whole Blood INR 1.5 H (0.9-1.1) APTT 27.6 (26.0-36.8) SEC Sodium 138 (135-145) mmol/L Potassium 2.8 L* (3.3-5.1) mmol/L Chloride 100 (96-108) mmol/L Carbon Dioxide 25 (22-29) mmol/L Anion Gap 16 (12-20) BUN 15 (9-16) mg/dL Creatinine 0.61 (0.5-1.4) mg/dL Estim Creat Clear Calc 50.2 Estimated GFR > 60 POC Glucose 116 H (60-115) mg/dL Random Glucose 115 (60-115) mg/dL Calcium 9.4 (8.4-10.2) mg/dL Troponin I High Sens 9.7 (<3.5-17.0) ng/L Triglycerides 65 (<150) mg/dL Cholesterol 131 (<200) mg/dL LDL Cholesterol, Calc 83 (<100) mg/dL HDL Cholesterol 35 L (>40) mg/dL Urine Color Urine Appearance Urine pH (5.0-9.0) Ur Specific [place] (1.005-1.025) Urine Protein (Neg-Trace) mg/dL Urine Glucose (UA) (Negative) mg/dL Urine Ketones (Negative) mg/dL Urine Blood (Negative) Urine Nitrite (Negative) Ur Leukocyte Esterase (Negative) Influenza Type A (PCR) (Negative) Influenza Type B (PCR) (Negative) RSV RNA Qual (PCR) (Negative) SARS-CoV-2 RNA (RT-PCR) (Negative) 03/03/24 Range/Units 14:11 WBC (4.8-10.8) X10*3/uL RBC (4.20-5.50) X10*6/uL Hgb (12.0-16.0) g/dl Hct (37.0-47.0) % MCV (80.0-98.0) fL MCH (27.0-33.0) pg MCHC (31.0-35.0) g/dl RDW (11.0-16.0) % Plt Count (160-400) X10*3/uL MPV (9.4-12.3) fL Immature Gran % (Auto) (0.0-0.4) % Neut % (Auto) (45-73) % Lymph % (Auto) (20-40) % [place] % (Auto) (2-11) % Eos % (Auto) (0-4) % Baso % (Auto) (0-2) % Lymph # (Auto) (1.2-4.9) X10*3/uL [place] # (Auto) (0.1-1.2) X10*3/uL Eos # (Auto) (0.0-0.4) X10*3/uL Baso # (Auto) (0.0-0.2) X10*3/uL Abs Immat Gran (auto) (0.00-0.03) X10*3/uL Absolute Neuts (auto) (2.0-8.3) x10*3/uL Absolute Nucleated RBC (0.0-0.012) X10*3/uL Nucleated RBC % (auto) (0.0-0.2) /100WBC PT (10.9-12.4) SEC Whole Blood PT (11.1-13.5) sec INR (0.9-1.1) Whole Blood INR (0.9-1.1) APTT (26.0-36.8) SEC Sodium (135-145) mmol/L Potassium (3.3-5.1) mmol/L Chloride (96-108) mmol/L Carbon Dioxide (22-29) mmol/L Anion Gap (12-20) BUN (9-16) mg/dL Creatinine (0.5-1.4) mg/dL Estim Creat Clear Calc Estimated GFR POC Glucose (60-115) mg/dL Random Glucose (60-115) mg/dL Calcium (8.4-10.2) mg/dL Troponin I High Sens (<3.5-17.0) ng/L Triglycerides (<150) mg/dL Cholesterol (<200) mg/dL LDL Cholesterol, Calc (<100) mg/dL HDL Cholesterol (>40) mg/dL Urine Color Dark Yellow Urine Appearance Clear Urine pH 6.0 (5.0-9.0) Ur Specific [place] >= 1.030 H (1.005-1.025) Urine Protein Trace (Neg-Trace) mg/dL Urine Glucose (UA) Negative (Negative) mg/dL Urine Ketones 15 (Negative) mg/dL Urine Blood Negative (Negative) Urine Nitrite Negative (Negative) Ur Leukocyte Esterase Negative (Negative) Influenza Type A (PCR) NEGATIVE (Negative) Influenza Type B (PCR) NEGATIVE (Negative) RSV RNA Qual (PCR) NEGATIVE (Negative) SARS-CoV-2 RNA (RT-PCR) POSITIVE A (Negative) Independent Interpretation I performed an independent interpretation of an: Plain X-Ray (Chest: No acute pulmonary disease) and CT Scan (Head/CTA head and neck:1. No evidence of significant stenosis, occlusion, dissection, or aneurysm in the intracranial or major cervical arterial vasculature. 2. Ancillary findings as discussed. ) Radiology Impression Discussion of test interpretation with radiology: I have reviewed the radiologist's reading. NIH Stroke Scale Internal: Initial- Upon Arrival Time: 09:31 Level of Consciousness: Alert Level of Consciousness Questions: Answers both questions correctly Level of Consciousness Commands: Performs both tasks correctly Best Gaze: Normal Visual: No visual loss Facial Palsy: Minor paralyis Motor Arm (Right): No drift Motor Arm (Left): Drift Motor Leg (Right): No drift Motor Leg (Left): Drift Limb Ataxia: Absent Sensory: Normal Best Language: No aphasia Dysarthia: Normal Extinction and Inattention: No abnormality Score: 3 Discharge Plan Discharge Clinical Impression: Brain TIA, Acute hypokalemia, COVID-19 virus infection Patient Disposition: Admitted As Inpatient
[2024-03-03 09:37] LABS: MANUAL DIFF FLAG NO
[2024-03-03 09:39] LABS: Basophils Percent Auto 0.2 % (0-2); Hematocrit 41.6 % (37.0-47.0); Hemoglobin 14.4 g/dl (12.0-16.0); Imm Gran Abs Auto 0.04 X10*3/uL (0.00-0.03); Imm Gran Pct Auto 0.4 % (0.0-0.4); Lymphocytes Absolute Auto 0.9 X10*3/uL (1.2-4.9); Lymphocytes Percent Auto 8.2 % (20-40); Mean Corpuscular HGB Conc 34.6 g/dl (31.0-35.0); Mean Corpuscular Hemoglobin 28.4 pg (27.0-33.0); Mean Corpuscular Volume 82.1 fL (80.0-98.0); Mean Platelet Volume 9.6 fL (9.4-12.3); Monocytes Absolute Auto 1.1 X10*3/uL (0.1-1.2); Monocytes Percent Auto 10.9 % (2-11); Neutrophils Absolute Auto 8.3 x10*3/uL (2.0-8.3); Neutrophils Percent Auto 80.3 % (45-73); Platelet Count 256 X10*3/uL (160-400); Red Blood Count 5.07 X10*6/uL (4.20-5.50); Red Cell Distribution Width 12.8 % (11.0-16.0); White Blood Count 10.4 X10*3/uL (4.8-10.8)
[2024-03-03 09:46] LABS: INTERNATIONAL NORM RATIO 1.5 (0.9-1.1); Prothrombin Time 17.9 SEC (10.9-12.4)
[2024-03-03 09:49] LABS: Partial Thromboplastin Time 27.6 SEC (26.0-36.8)
[2024-03-03 09:57] LABS: Blood Urea Nitrogen 15 mg/dL (9-16); Calcium 9.4 mg/dL (8.4-10.2); Cholesterol 131 mg/dL (<200); Creatinine Clr Calc Pharmacy 50.2; Estimated Glomerular Filt Rate > 60; Glucose Random 115 mg/dL (60-115); HDL Cholesterol 35 mg/dL (>40); LDL Cholesterol Calculated 83 mg/dL (<100); Triglycerides 65 mg/dL (<150)
[2024-03-03 10:00] LABS: Stroke Lab Use COMPLETE
[2024-03-03 10:01] LABS: Troponin-I High Sensitivity 9.7 ng/L (<3.5-17.0)
[2024-03-03 10:09] LABS: Anion Gap 16 (12-20); Carbon Dioxide 25 mmol/L (22-29); Chloride 100 mmol/L (96-108); Potassium 2.8 mmol/L (3.3-5.1); Sodium 138 mmol/L (135-145)
[2024-03-03] MEDS: Potassium Chloride/H20 10 MEQ/100 ML PIGGYBACK 100 MEQ IV ×3 (10:39→19:51)
--- OUTSIDE RECORDS SUMMARY | 2024-03-03 10:50 | XMS_ITS | Patient Health Record ---
Author Organization [facility] Address [address] [place] [address] Care Team Providers Care Gemologist Name Role Phone Po Jaimee CASPER Primary Care Provider Cody Redd [phone] ALLERGIES Allergen (clinical drug ingredient) Drug/Non Drug Allergy documented on EMR Reaction Allergy Type Onset Date Status Sulfa Unknown Drug Allergy Active meperidine Demerol Unknown Drug Allergy Active REASON FOR REFERRAL No Information MEDICATIONS Medication SIG (Take, Route, Frequency, Duration) Notes Start Date End Date Status Simvastatin 20mg Act raman Vitamin C Active Sertraline HCl 100 MG Orally Active Multivitamin Active Amlodipine & Diet Manage Prod 10mg Active Vitamin D3 25 MCG (1000 UT) Orally Active Omeprazole 20 MG Orally Act raman Probiotic Advanced A ctive ALPRAZolam 0.25 MG Orally A ctive Fexofenadine-Pseudoephed ER 180-240 MG Orally Once a day Active ProAir HFA as needed Active Aspir-81 81 MG 1 tablet Orally Once a day Active Multi Vitamin/Minerals Active Vitamin C 500mg Acti ve Lisinopril-hydroCHLOROthiaz tyler 20-12.5mg Active Tylenol PRN Active IMMUNIZATIONS Vaccine Route Administration Date Status Comme nts Influenza Unknown 11/24/2019 Administered SOCIAL HISTORY Sex Assigned At : Social History Observation Description Sex Assigned At Unknown PROBLEMS Problem Type ICD Code Onset Dates Problem Status W/U Status Risk SNOMED Code Notes Problem Bloating (R14.0) Active confirmed Flatu lence, eructation and gas pain (765294997) Problem Hiatal hernia (K44.9) Active confirmed 75039013 Problem Abnormal finding on GI tract imaging (R93.3) Active confirmed 837654271 Problem Irregular bowel habits (R19.8) Active confirmed 570353709 Problem Irritable bowel syndrome with both constipation and diarrhea (K58.2) Active confirmed 12056844 Problem 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) Active confirmed 5324098 PLAN OF TREATMENT Future Test Test Name Order Date COLONOSCOPY 07/07/2012 UPPER GI ENDOSCOPY 05/10/2016 Insurance Providers Payer Name Payer Address Payer Phone Subscriber Number Group Number Insured Name Patient Relationship to Insured Coverage Start Date Coverage End Date [facility] [address] [facility] [place] [phone] [id number] VICTORIANO SIMPSON Self - patient is the insured MEDICAL (GENERAL) HISTORY Medical History History ICD Code Upper endo in 09/2006 with a large HH and an esophageal ring-dilated with a balloon with good results-normal duodenal bx Iron def. anemia in 2006. Tubular adenoma removed in -also noted was mild diverticulosis and small internal hemorrhoids Depression Hyperlipidemia Hypertension Denies MS,DM,CVA,Lung disease,renal dise ase Arthritis Neg. 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 Armas at [facility] C- diff due to antibiotics in12/2018 Surgical History Surgery Date(Month/Year) Ovarian cyst and eventual complete hyste rectomy. Thoracic stomach surgery with Dr. Armas i n 12/2016 Broken shoulder 08/2019
--- OUTSIDE RECORDS SUMMARY | 2024-03-03 10:50 | XMS_ITS | Data Portability ---
Author Organization [facility], [facility] Address [address] [place] [address] Assessment No assessment recorded. Plan of Treatment Reminders Order Date Submit Date Provider Last Modified By Organization Details Last Modified Time Details Appointments None recorde d. Lab None recorde d. Referral None recorde d. Procedures None recorde d. Surgeries None recorde d. Imaging XR, knee, 4 or more view - rm 107; right knee 024 08/06/19 24 [email or web address] [facility], [address] [facility] [address], [address], [address], 4 12:24:24 Medication Orders None recorde d. Patient TargetsNo targets recorded. Patient InstructionsNo instructions recorded. Reason for Referral None Reported. Results Created Date Observation Date Name Description Value Unit Range Abnormal Flag Note LastModifiedBy Organization Detail LastModifiedTime 08/06/19 24 08/06/2023 XR, knee, 4 or more view http:/ [email or web address] ?Encry pted=s hAaTro YD8dLq bEUv6g %2BXZw aYqtaq 0bqfl% 2Fg9IQ a4ajBk vP9nXo QUaueC m3YtLR FvZlgJ JJ8mAn HZtai3 4p1042 AC0Kpa n2NU6v eUC8mr 84%3D INTERFACE [facility] [address], [place], [address], 08/06/2023 14:31:07 08/06/19 24 08/06/2023 XR, knee, 4 or more view http:/ [email or web address] ?Encry pted=s hAaTro YD8dLq bEUv6g %2BXZw aYqtaq 0bqfl% 2Fg9IQ a4ajBk vP9nXo QUaueC m3YtLR FvZlgJ JJ8mAn HZtai3 0w1088 AC0Kpa n2NU6v eUC8mr 84%3D INTERFACE [facility] [address], [place], [address], 08/06/2023 14:31:09 10/10/19 24 08/06/2019 imagi ng/di agnos tic resul t No observ ation record ed. [email or web address] Not Available 09/12 02:02:39 10/10/19 24 08/11/2019 imagi ng/di agnos tic resul t No observ ation record ed. [email or web address] Not Available 09/12 02:02:51 10/10/19 24 08/06/2019 imagi ng/di agnos tic resul t No observ ation record ed. [email or web address] Not Available 09/12 02:02:52 Result Notes None recorded. Problems Name Problem SNOMED Code Status Onset Date Resolution Date Notes Provider Name and Address Organization Details Recorded Time No complaints 832711743 Active Status : 'A'; Not Available [facility] 4 09:11:00 Pain of right knee joint 6332826910206 00 Active 2023 LIZZY vela [place] - [facility] 4 14:19:26 Problem Notes None recorded. Procedures Surgical History None recorded. Imaging Results Imaging Date Name Status LastModified by Organiz ation Details LastModified Time 08/06/2023 XR, knee, 4 or more view completed INTERFACE [facility] [address], [place], [address], 08/06/2023 14:31:07 08/06/2023 XR, knee, 4 or more view completed INTERFACE [facility] [address], [place], [address], 08/06/2023 14:31:09 08/06/2019 imaging/diag nostic result completed Information not available 10/10/2023 02:02:39 08/11/2019 imaging/diag nostic result completed Information not available 10/10/2023 02:02:51 08/06/2019 imaging/diag nostic result completed Information not available 10/10/2023 02:02:52 Procedure Notes None recorded. Medical Equipment None Reported. Allergies Allergen ID Allergen Name Allergen Category Reaction Reaction Severity Criticality Documentation Date Start Date Code Code System Note Provider Name and Address Organization Details Recorded Time 277902 Augmentin medicatio n Not available Not available Not available 04/14/20232019 45601 2 RxNorm Not Available [facility] 4 15:27:04 391740 Substance with sulfonami de structure and antibacte rial mechanism of action (substanc e) medicatio n Not available Not available Not available 04/14/20232019 43869 8003 SNOMED Not Available [facility] 4 15:27:04 647658 morphine medicatio n Not available Not available Not available 08/06/2023 7052 RxNorm LIZZY vela [place] - [facility] 4 14:18:29 Medications Name Sig Start Date Stop Date Status Note LastModified by Organization Details LastModified Time donepezil 5 mg tablet TAKE 1 TABLET BY MOUTH DAILY AT BEDTIME active Not Available Not Available N ot Available atorvastatin 10 mg tablet TAKE 1 TABLET BY MOUTH EVERY DAY active Not Available Not Available No t Available lisinopril 20 mg-hydrochlo rothiazide 12.5 mg tablet TAKE 1 TABLET BY MOUTH EVERY DAY active Not Available Not Available No t Available sertraline 100 mg tablet TAKE 2 TABLETS BY MOUTH EVERY DAY active Not Available Not Available No t Available alprazolam 0.5 mg tablet TAKES 1/2 TABLET BY MOUTH IN THE MORNING AND TAKE 1 FULL TAB IN THE EVENING active Not Available Not Available Not Available amlodipine 10 mg tablet TAKE 1 TABLET BY MOUTH EVERY DAY active Not Available Not Available No t Available omeprazole 20 mg capsule,darvin yed release TAKE 1 CAPSULE BY MOUTH EVERY DAY active Not Available Not Available No t Available fluticasone propionate 50 mcg/actuatio n nasal spray,suspen darlene SPRAY 2 SPRAYS INTO EACH NOSTRIL EVERY DAY active Not Available Not Available No t Available mometasone 0.1 % topical cream APPLY TOPICALLY 2 TIMES A DAY NEEDED FOR SKIN IRRITATION FOR 1-2 WEEKS active Not Available Not Available No t Available cyclobenzapr ine 5 mg tablet TAKE 1 TABLET BY MOUTH 3 TIMES A DAY NEEDED FOR MUSCLE SPASM active Not Available Not Available No t Available oxycodone HCl-oxycodon e-ASA Take a half tablet every 4-6 hours as needed for severe pain. 2019 active Statu s: 'Curr ent'; Not Available Not Available Not Available Vitals Date Recorded Body height Body mass index (BMI) Body weight Provider Name and Address Organization Details Last Updated DateTime 08/06/2023 149.86 cm 24.2 kg/m2 59814.08 g LIZZY Han [facility] 08/06/2023 14:19:02 Social History None recorded. Functional Status None recorded. Mental Status None recorded. Family History Nothing Reported. Medical History No medical history recorded. Gynecological HistoryNo gynecological history recorded. Obstetrics History GPAL:G 0 P 0 0 0 0 Past Encounters Encounter ID Performer Location Encounter Start Date Encounter Closed Date Diagnosis/Indication Diagnosis SNOMED-CT Code Diagnosis ICD10 Code Diagnosis Note [id number] [facility] [address] [address] 08/06/2023 13:59:21 09/02/2023 12:24:23 Pain of right knee joint 6145181843 22386 M25.561 Health Concerns Section Related Observation LastModified by Organization Detai ls LastModified Time None Recorded Concern Status LastModified by Organization Details LastModified Time None Recorded Advance Directives Directive None Recorded Payers Encounter Date Sequence Insurance Name Policy Number Policy Alvarado Covered Member ID Alvarado Member ID Guarantor Name 08/06/2023 1 [employer] - MEDICARE ADVANTAGE PLAN (MEDICARE REPLACEMENT HMO) [id number] Yolanda Morgan [id number] Yolanda Morgan Notes Date Note Type Note Provider Name and Address Organization Details Recorded Time 08/06/2023 text/html I am seeing the patient today under the supervision of [Dr. Arechiga who was available but who did not see the patient.History this pleasant woman 83 years old presents today for new problem of right knee pain. She fell on 06/23/2023. Landing on the anterior aspect of her right knee. Initially was somewhat okay had a bruising about the anterior aspect of her knee however within 2 weeks had severe difficulty walking. Had pain weightbearing. Over the last couple of weeks she has begun to improve. She is able to fully weight-bear on this side. Does fatigue easily. Does take Tylenol and Motrin. No prior history of problems with her knee.PMH/PSH/MEDS/ALL/F MH/SOC HX/ROS are reviewed in detail, updated and located in the patient's chart.Of note: An MRI was obtained at [facility] which shows large area of bone marrow edema of the lateral femoral condyle as well as patella laterally. There is of note degenerative changes tricompartmentally as well as complex medial meniscal tear.General Exam: Vital signs are as noted belowMental status: Alert and lucid. 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 No spasticity or clonus noted.Extremities: [Calves are soft non tender, skin intact. ]Orthopedic Examination:Patient has a negative straight leg raise bilaterally.Right Hip: [ ] Hip exam shows no tenderness to palpation. There is full range of motion throughout all planes without irritability. There is full muscle strength. There is negative straight leg raise. Negative for signs of impingement.Left Hip: [ ] Hip exam shows no tenderness to palpation. There is full range of motion throughout all planes without irritability. There is full muscle strength. There is negative straight leg raise. Negative for signs of impingement.Right Knee: minimal tenderness about the lateral femoral condyle appeared mild tenderness at the lateral border of the patella. No obvious intertrigo effusion. Full range of motion. No specific joint line tenderness. Negative Barb's test.Left Knee: ROM is full, stability intact both anterior, posterior, and varus/valgus stress at both 0 and 30 degrees of flexion. No meniscal tenderness. Negative Barb's maneuver. No crepitus,no effusion, 5/5 strength.Antalgic gait pattern favoring the right side.Peripheral, vascular, lymphatic examination, skin, neurological, coordination, reflexes, sensation are within normal limits.X-rays ordered, obtained and reivewed at [facility], 4 views of the right knee including a standing AP, Matthew view, nonweightbearing lateral views, and merchant view. These radiographs demonstrate mild degenerative changes tricompartmentally with chondrocalcinosis noted bilaterally.Assessment: right knee bone marrow edema status post fallPLAN: I discussed with her conservative treatment options with continuing Tylenol and Motrin. Weight-bear as tolerated. I have discussed the role of intra-articular cortisone injection however given the fact this is a bony problem nonspecific. Intra-articular problem I do not feel she will get much benefit from this and she does state she is improving. Follow up with us on an as-needed basis. I have discussed with her this may persist for the next couple of months off-and-on with activity.[facility] speech recognition blood or blood bank technician software was used to create portions of this document. An attempt at proofreading has been made to minimize errors. Please call for corrections. Aureliano Tenorio PA-C [address] [facility], [place], [address], [facility] 08/07/2023 07:41:17 OBGyn Episode No OBEpisode recorded.
[2024-03-03] MEDS: iohexoL 350 MG/ML 100 ML INFUS..BTL IV (10:59)
[2024-03-03] MEDS: cefTRIAXone sodium 1 GM VIAL IVPUSH (12:04)
[2024-03-03] MEDS: Acetaminophen 1,000 MG/100 ML PIGGYBACK 400 MG IV (12:04)
[2024-03-03] MEDS: 0.9 % Sodium Chloride 1,000 ML 999 ML IV (12:05)
[2024-03-03 14:16] VITALS: TEMP 37.4
[2024-03-03 14:17] LABS: Appearance Urine Clear; Color Urine Dark Yellow; Glucose Urine UA Negative (Negative); Leukocyte Esterase Urine Negative (Negative); Nitrite Urine Negative (Negative); Specific Gravity - Urine >= 1.030 (1.005-1.025); Urine Blood Negative (Negative); Urine Ketones 15 mg/dL (Negative); Urine Protein Trace mg/dL (Neg-Trace)
--- NOTE | 2024-03-03 14:17 | PC.NURSE ---
Straight cath performed for urine spec. 300ml of clear, dark yellow urine drained. Pt tolerated well. U/A sent to lab--results pending
[2024-03-03 14:18] VITALS: TEMP 37.4
[2024-03-03 14:54] LABS: Influenza A PCR NEGATIVE (Negative); Influenza B PCR NEGATIVE (Negative); Resp Syncy Virus RNA Qual PCR NEGATIVE (Negative); SARS COV2 PCR INHOUSE POSITIVE (Negative)
[2024-03-03 15:05] LABS: Prothrombin Time Whole Bld POC 17.6 sec (11.1-13.5); ~PT, ~INR - Anti Coag Clinic 1.5 (0.9-1.1)
--- NOTE | 2024-03-03 15:35 | PHA.MEDREC ---
Addendum entered by Sisi Larkin RPh 03/03/24 16:45: Med rec was reviewed by [facility]. Original Note: Pharmacy Consult ? Medication Reconciliation Pharmacy has completed the medication reconciliation. Spoke to patients daughter at bedside to confirm med list. Daughter states patient is no longer taking Vitamin C 250mg, Cepalexin 500 mg, Fexofenadibe 180 mg, and Multivitamin. Daughter states patient last took her medication 03/02/24.
--- NOTE | 2024-03-03 16:15 | P.HPHOSP_ITS ---
History of Present Illness Date of Service: 03/03/24 Chief Complaint: LEft sided weakness, swallowing problem An 83 years old lady with PMH of dementia, GERD, anxiety, scoliosis, COPD, HLD, HTN among others who presented to ED with difficulties swallowing and left sided weakness. The patient has daughter at bedside who lives with her. reported that she noticed some problems swallowing yesterday but this morning she was not able to drink water, noticed left sided facial droop and weakness in LUE. The patient had Covid infection more that 2 weeks ago and has been deteriorating physically since then. not eating much and for the last 2 days unable to stand up. In ED CT\CTA unremarkable. NIH of 3. symptoms improved. admitted for evaluation and monitoring. Review of Systems 2 Review of Systems: No fever, chills but has generalized weakness No chest pain, palpitation No shortness of breath or coughing No abdominal pain, nausea or vomiting No urinary symptoms No rash or wounds PMFSH Medical History Tiredness Fracture, humerus Shoulder impingement syndrome Tubular adenoma of colon Severe scoliosis COPD (chronic obstructive pulmonary disease) Hypercholesterolemia Hypertension Family History Father CVD (cardiovascular disease) Heart failure Mother Cervical cancer Sister In good health Surgical History History of colonoscopy History of removal of ovarian cyst History of tonsillectomy S/P STORM-BSO Paraesophageal hernia Social History Housing: House Unable to assess alcohol history related to: Unknown Alcohol intake: never Patient Tobacco Use Status: Never used Tobacco Tobacco use type: Cigarette Smoked in Last 30 Days: No e-Cigarette/Vaping Use: Never Used Second Hand Smoke Exposure: No Use of substances other than those prescribed or required for medical reasons: No Advance Directives: No Do you have a plan to hurt others: No Plan service: No Current occupational status: retired Cognitive needs: Yes (Walker, cane, wheelchair) Hearing needs: No Vision needs: Yes (Glasses) Meds Allergies Allergy/AdvReac Type Severity Reaction Status Date / Time meperidine [Demerol] Allergy Unknown Unknown Verified 03/03/24 09:10 morphine [MORPHINE] Allergy Unknown UNKNOWN Verified 03/03/24 09:10 Sulfa (Sulfonamide Allergy Unknown unknown Verified 03/03/24 09:10 Antibiotics) sulfur Allergy Unknown Unknown Verified 03/03/24 09:10 amoxicillin [From Augmentin] AdvReac Intermediate C diff Verified 03/03/24 09:10 clavulanic acid AdvReac Intermediate C diff Verified 03/03/24 09:10 [From Augmentin] Active Medications: Current Medications Albuterol Sulfate (Albuterol Sulfate 90 Mcg 8 Gm Inhaler) 2 puff INHALE Q4H PRN PRN Reason: bronchospasm Alprazolam (Alprazolam 0.25 Mg Tablet) 0.25 mg PO DAILY BRUNO Aspirin (Aspirin 81 Mg Tab.Chew) 81 mg PO DAILY BRUNO Home Medications ?Medication ?Instructions ?Recorded ?Confirmed ?Last Taken ?Type acetaminophen 325 mg capsule 325 mg PO QID PRN Pain 11/25/19 03/03/24 Unknown History alprazolam 0.5 mg tablet 0.25 mg PO DAILY 03/03/24 03/03/24 03/02/24 History alprazolam 0.5 mg tablet 0.5 mg PO BEDTIME 03/03/24 03/03/24 03/02/24 History cetirizine 10 mg capsule (Zyrtec) 10 mg PO DAILY 03/03/24 03/03/24 03/02/24 History omeprazole 20 mg capsule,delayed 20 mg PO DAILY@0630 03/03/24 03/03/24 03/02/24 History release Physical Exam 2 Vital Signs and Narrative: Vital Signs: Last Vital Signs Temp 99.4 F 03/03/24 14:18 Pulse 79 03/03/24 09:06 Resp 16 03/03/24 09:06 BP 115/67 03/03/24 09:06 Pulse Ox 93 03/03/24 09:06 O2 Del Method Room Air 03/03/24 09:06 BMI result Body Mass Index 20.9 Const: Other: Constitutional : Awake, interactive, not in distress Neck : Normal inspection, Supple Cardiovascular : RRR, no JVP, no lower extremity edema Respiratory : good bilateral air entry, no crackles, wheezes or rhonchi Gastrointestinal: soft, lax, Normal bowel sounds, Non tender Skin : Warm, Dry Neurological : Alert & oriented to self only, No focal deficit, no facial droop , CN 2-12 within normal Results Labs 03/03/24 09:31 03/03/24 09:31 Labs: Laboratory Results - last 24 hr 03/03/24 03/03/24 03/03/24 09:08 09:09 09:31 MCV 82.1 MCH 28.4 MCHC 34.6 RDW 12.8 Plt Count 256 D MPV 9.6 Immature Gran % (Auto) 0.4 Neut % (Auto) 80.3 H Lymph % (Auto) 8.2 L Maverick % (Auto) 10.9 Eos % (Auto) 0.0 Baso % (Auto) 0.2 Lymph # (Auto) 0.9 L Maverick # (Auto) 1.1 Eos # (Auto) 0.0 Baso # (Auto) 0.0 Abs Immat Gran (auto) 0.04 H Absolute Neuts (auto) 8.3 Absolute Nucleated RBC 0.000 Nucleated RBC % (auto) 0.0 PT 17.9 H D Whole Blood PT 17.6 H INR 1.5 H Whole Blood INR 1.5 H APTT 27.6 Anion Gap 16 Estim Creat Clear Calc 50.2 Estimated GFR > 60 POC Glucose 116 H Random Glucose 115 Calcium 9.4 Troponin I High Sens 9.7 Triglycerides 65 Cholesterol 131 LDL Cholesterol, Calc 83 HDL Cholesterol 35 L Urine Color Urine Appearance Urine pH Ur Specific Vancleave Urine Protein Urine Glucose (UA) Urine Ketones Urine Blood Urine Nitrite Ur Leukocyte Esterase Influenza Type A (PCR) Influenza Type B (PCR) RSV RNA Qual (PCR) SARS-CoV-2 RNA (RT-PCR) 03/03/24 14:11 MCV MCH MCHC RDW Plt Count MPV Immature Gran % (Auto) Neut % (Auto) Lymph % (Auto) Maverick % (Auto) Eos % (Auto) Baso % (Auto) Lymph # (Auto) Maverick # (Auto) Eos # (Auto) Baso # (Auto) Abs Immat Gran (auto) Absolute Neuts (auto) Absolute Nucleated RBC Nucleated RBC % (auto) PT Whole Blood PT INR Whole Blood INR APTT Anion Gap Estim Creat Clear Calc Estimated GFR POC Glucose Random Glucose Calcium Troponin I High Sens Triglycerides Cholesterol LDL Cholesterol, Calc HDL Cholesterol Urine Color Dark Yellow Urine Appearance Clear Urine pH 6.0 Ur Specific Vancleave >= 1.030 H Urine Protein Trace Urine Glucose (UA) Negative Urine Ketones 15 Urine Blood Negative Urine Nitrite Negative Ur Leukocyte Esterase Negative Influenza Type A (PCR) NEGATIVE Influenza Type B (PCR) NEGATIVE RSV RNA Qual (PCR) NEGATIVE SARS-CoV-2 RNA (RT-PCR) POSITIVE A Imaging Radiologist's Impressions: Impressions Head CT 03/03/24 09:19 IMPRESSION: No acute intracranial process seen This critical result was discussed with Dr. Tanner at 9:34 AM on 03/03/2024. It was ascertained that the content and urgency of the report was understood at the time of direct communication. Electronically signed by: Santiago Rosales MD 03/03/2024 09:36 AM EST RP Chest X-Ray 03/03/24 10:12 IMPRESSION: No active pulmonary disease. No change. Electronically signed by: Navid Marshall MD 03/03/2024 10:48 AM EST RP Head/Neck CTA 03/03/24 10:17 IMPRESSION: 1. No evidence of significant stenosis, occlusion, dissection, or aneurysm in the intracranial or major cervical arterial vasculature. 2. Ancillary findings as discussed. Electronically signed by: Navid Marshall MD 03/03/2024 11:31 AM EST RP Assessment and Plan (1) COVID-19 virus infection: Status: Acute (2) Acute hypokalemia: Status: Acute (3) Left-sided weakness: Status: Acute (4) Physical deconditioning: Status: Acute (5) Swallowing problem: Status: Acute Plan An 83 years old lady with PMH of dementia, GERD, anxiety, scoliosis, COPD, HLD, HTN among others who presented to ED with difficulties swallowing and left sided weakness. 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 for now physical deconditioning related to recent Covid infection; still testing positive Not hypoxic precautions PT eval acute hypokalemia replacement given, follow BMP Anxiety Home medicaitons Hx COPD not in exacerbation, prn inhalers DVT PPx Lovenox The patient will need 2 overnight hospital stay for evaluation of swallowing problem, left sided weakness pending MRI and neurology, treatment of deconditioning and Covid infection Quality Stroke Does the patient have a stroke diagnosis?: No VTE Prior VTE?: No VTE Risk Level:: Medical - moderate - high VTE Device Contraindication: Treatment Not Indicated VTE Drug Contraindication: N/A - Med Ordered
[2024-03-03] MEDS: Dextrose 5 % and 0.9 % NaCl 1,000 ML 100 ML IVCONT (17:48)
[2024-03-03] MEDS: Enoxaparin Sodium 40 MG/0.4 ML SYRINGE SUBCUT (17:50)
[2024-03-03 17:52] VITALS: BP 113/54; PULSE 69; RESP 14; O2SAT 96
[2024-03-03 19:31] VITALS: BP 106/53; PULSE 58; RESP 20; TEMP 36.7; O2SAT 100
--- NOTE | 2024-03-03 21:28 | PC.NURSE ---
pt tolerated MRI well, back in room at this time resting comfortably
[2024-03-03 22:22] VITALS: BP 109/57; PULSE 55; RESP 18; TEMP 36.4; O2SAT 98
[2024-03-04] VITALS (7 sets, daily range): BP systolic 116–148; BP diastolic 47–65; PULSE 54–66; RESP 12–18; TEMP 36.4–36.8; O2SAT 96–99
[2024-03-04] MEDS: Dextrose 5 % and 0.9 % NaCl 1,000 ML 100 ML IVCONT ×2 (03:53→14:07)
[2024-03-04 05:41] LABS: Hematocrit 38.2 % (37.0-47.0); Hemoglobin 12.6 g/dl (12.0-16.0); Mean Corpuscular Hemoglobin 28.1 pg (27.0-33.0); Mean Corpuscular Volume 85.3 fL (80.0-98.0); Mean Platelet Volume 10.1 fL (9.4-12.3); Platelet Count 221 X10*3/uL (160-400); Red Blood Count 4.48 X10*6/uL (4.20-5.50); Red Cell Distribution Width 12.9 % (11.0-16.0); White Blood Count 6.7 X10*3/uL (4.8-10.8)
[2024-03-04 06:05] LABS: Anion Gap 10 (12-20); Blood Urea Nitrogen 11 mg/dL (9-16); Calcium 8.2 mg/dL (8.4-10.2); Carbon Dioxide 26 mmol/L (22-29); Chloride 109 mmol/L (96-108); Cholesterol 106 mg/dL (<200); Creatinine Clr Calc Pharmacy 54.7; Estimated Glomerular Filt Rate > 60; Glucose Random 148 mg/dL (60-115); HDL Cholesterol 32 mg/dL (>40); LDL Cholesterol Calculated 62 mg/dL (<100); Potassium 3.3 mmol/L (3.3-5.1); Sodium 142 mmol/L (135-145); Triglycerides 61 mg/dL (<150)
--- NOTE | 2024-03-04 09:56 | MHC.CM.PN ---
IMM 03/04/24, Pt lives with dtr, no home health services, for DME, she has a walker and W/C. PCP confirmed: Dr. Drake, HCP was given to CM and will be added to chart. The first person listed his pt.'s late , but dtr is on as second. Dtr informed CM that prior to hosp stay, family was considering Hospice services for pt. DCP: home with services, transport at DC: TBD. CM to follow for DC needs.
--- NOTE | 2024-03-04 11:44 | HO.PM.IMPN ---
Subjective Subjective Date of Service: 03/04/24 Interval History: seen and evalauted failued bedside swallow eval feels little better MRI negative for acute stroke no other events Review of Systems Review of Systems: Yes all other systems are reviewed and are negative Physical Exam Vital Signs: Vital Signs: Last Vital Signs Temp 98.1 F 03/04/24 09:59 Pulse 59 03/04/24 09:59 Resp 18 03/04/24 09:59 BP 132/62 03/04/24 09:59 Pulse Ox 97 03/04/24 09:59 O2 Del Method Nasal Cannula 03/04/24 09:59 O2 Flow Rate 3 03/04/24 09:59 BMI result Body Mass Index 20.9 Const: Other: Constitutional : Awake, interactive, not in distress Neck : Normal inspection, Supple Cardiovascular : RRR, no JVP, no lower extremity edema Respiratory : good bilateral air entry, no crackles, wheezes or rhonchi Gastrointestinal: soft, lax, Normal bowel sounds, Non tender Skin : Warm, Dry Neurological : Alert & oriented to self only, No focal deficit, no facial droop , CN 2-12 within normal Objective Data Active Medications Acetaminophen (Acetaminophen 325 Mg Tablet) 650 mg PO Q6H PRN PRN Reason: Pain, Mild 1-3,fever,headache Albuterol Sulfate (Albuterol Sulfate 90 Mcg 8 Gm Inhaler) 2 puff INHALE Q4H PRN PRN Reason: bronchospasm Alprazolam (Alprazolam 0.25 Mg Tablet) 0.25 mg PO DAILY [facility] Last Admin: 03/04/24 11:09 Dose: Not Given Documented By: BRENDA Non-Admin Reason: NPO Alprazolam (Alprazolam 0.5 Mg Tablet) 0.5 mg PO BEDTIME [facility] Last Admin: 03/03/24 21:28 Dose: Not Given Documented By: JEANETH Non-Admin Reason: failed swallow eval Aspirin (Aspirin 81 Mg Tab.Chew) 81 mg PO DAILY [facility] Last Admin: 03/04/24 11:09 Dose: Not Given Documented By: BRENDA Non-Admin Reason: NPO Atorvastatin Calcium (Atorvastatin Calcium 40 Mg Tablet) 40 mg PO BEDTIME [facility] Last Admin: 03/03/24 21:29 Dose: Not Given Documented By: JEANETH Non-Admin Reason: failed swallow eval Benzonatate (Benzonatate 100 Mg Capsule) 100 mg PO TID PRN PRN Reason: Cough Calcium Carbonate (Calcium Carbonate 750 Mg Tab.Chew) 750 mg PO Q4H PRN PRN Reason: Heartburn Enoxaparin Sodium (Enoxaparin Sodium 40 Mg/0.4 Ml Syringe) 40 mg SUBCUT Q24H [facility] Last Admin: 03/03/24 17:50 Dose: 40 mg Documented By: ROCOÍ Fluticasone Propionate (Fluticasone Propionate Nasal 16 Gm [place]) 2 spray NOSTRIL-B DAILY [facility] Last Admin: 03/04/24 10:44 Dose: Not Given Documented By: BRENDA Non-Admin Reason: Med Not Available Dextrose/Sodium Chloride (D5ns) 1,000 mls @ 100 mls/hr IVCONT .Q10H [facility] Last Admin: 03/04/24 03:53 Dose: 100 mls/hr Documented By: JEANETH Influenza Virus Vaccine (Flu Vacc [id number](6mos Up)/Pf 0.5 Ml Syringe) 0.5 ml IM .ONCE ONE Stop: 03/05/24 09:01 Loratadine (Loratadine 10 Mg Tablet) 10 mg PO DAILY [facility] Last Admin: 03/04/24 11:10 Dose: Not Given Documented By: BRENDA Non-Admin Reason: NPO Magnesium Hydroxide (Milk Of Magnesia 30 Ml Oral.Susp) 30 ml PO DAILY PRN PRN Reason: Constipation Melatonin (Melatonin 3 Mg Tablet) 6 mg PO BEDTIME PRN PRN Reason: Insomnia Omeprazole (Omeprazole 20 Mg Capsule.Dr) 20 mg PO DAILY@0630 [facility] Last Admin: 03/04/24 06:44 Dose: Not Given Documented By: JEANETH Non-Admin Reason: failed swallow, npo Ondansetron HCl (Ondansetron Hcl 4 Mg/2 Ml Vial) 4 mg IVPUSH Q8H PRN PRN Reason: Nausea and Vomiting Sertraline HCl (Sertraline Hcl 100 Mg Tablet) 200 mg PO DAILY [facility] Last Admin: 03/04/24 11:10 Dose: Not Given Documented By: BRENDA Non-Admin Reason: NPO Sodium Chloride (0.9 % Sodium Chloride Flush 3 Ml Syringe) 3 ml IVFLUSH QSHIFT [facility] Last Admin: 03/04/24 08:51 Dose: Not Given Documented By: SERENA Non-Admin Reason: See Note Vitamin D (Cholecalciferol (Vitamin D3) 25 Mcg Tablet) 25 mcg PO DAILY [facility] Last Admin: 03/04/24 11:09 Dose: Not Given Documented By: BRENDA Non-Admin Reason: NPO Labs 03/04/24 05:22 03/04/24 05:22 Labs: Laboratory Results - last 24 hr 03/03/24 03/03/24 03/04/24 09:09 14:11 05:22 MCV 85.3 MCH 28.1 MCHC 33.0 RDW 12.9 Plt Count 221 MPV 10.1 Absolute Nucleated RBC 0.000 Nucleated RBC % (auto) 0.0 Whole Blood PT 17.6 H Whole Blood INR 1.5 H Anion Gap 10 L Estim Creat Clear Calc 54.7 Estimated GFR > 60 Random Glucose 148 H Calcium 8.2 L D Triglycerides 61 Cholesterol 106 LDL Cholesterol, Calc 62 HDL Cholesterol 32 L TSH 2.20 Urine Color Dark Yellow Urine Appearance Clear Urine pH 6.0 Ur Specific [place] >= 1.030 H Urine Protein Trace Urine Glucose (UA) Negative Urine Ketones 15 Urine Blood Negative Urine Nitrite Negative Ur Leukocyte Esterase Negative Influenza Type A (PCR) NEGATIVE Influenza Type B (PCR) NEGATIVE RSV RNA Qual (PCR) NEGATIVE SARS-CoV-2 RNA (RT-PCR) POSITIVE A Assessment and Plan (1) Swallowing problem: Status: Acute (2) Physical deconditioning: Status: Acute (3) Left-sided weakness: Status: Acute (4) COVID-19 virus infection: Status: Acute (5) Acute hypokalemia: Status: Acute (6) Brain TIA: Status: Acute Plan An 83 years old lady with PMH of dementia, GERD, anxiety, scoliosis, COPD, HLD, HTN among others who presented to ED with difficulties swallowing and left sided weakness. LEft sided weakness seems to be related to general deconditioning, could be TIA event CT, CTA , MRI negative for acute findings continue ASA, Statin Neurology consulted lipid profile Swallowing problem NPO for now as failed bedside screening [employer] eval IVF for now physical deconditioning related to recent Covid infection; still testing positive Not hypoxic precautions PT eval acute hypokalemia replacement given, follow BMP Anxiety Home medicaitons Hx COPD not in exacerbation, prn inhalers DVT PPx Lovenox The patient will need overnight hospital stay for evaluation of swallowing problem, left sided weakness pending MRI and neurology, treatment of deconditioning and Covid infection Quality Stroke Does the patient have a stroke diagnosis?: No VTE Prior VTE?: No VTE Risk Level:: Medical - moderate - high VTE Device Contraindication: Treatment Not Indicated VTE Drug Contraindication: N/A - Med Ordered
--- NOTE | 2024-03-04 12:43 | P.CNNE_ITS ---
History of Present Illness Data of Consult Service Date: 03/04/24 Primary Care Provider: Jaimee Drake MD [facility] Reason for consult: Left-sided weakness 83 years old woman with underlying history of dementia recently suffered from COVID living with a daughter was brought to hospital for lethargy weakness in possible left-sided weakness. There was no complaint of headache or any seizure-like episode. Review of Systems 2 Review of Systems: Recent admission for COVID [facility] Past Medical History Medical History Tiredness Fracture, humerus Shoulder impingement syndrome Tubular adenoma of colon Severe scoliosis COPD (chronic obstructive pulmonary disease) Hypercholesterolemia Hypertension Family History Family History Father CVD (cardiovascular disease) Heart failure Mother Cervical cancer Sister In good health Surgical History Surgical History History of colonoscopy History of removal of ovarian cyst History of tonsillectomy S/P STORM-BSO Paraesophageal hernia Social History Social History Household Members: Family Housing: House Do you presently have visiting nurse or other home services: No Unable to assess alcohol history related to: Unknown Alcohol intake: never Patient Tobacco Use Status: Never used Tobacco Tobacco use type: Cigarette Smoked in Last 30 Days: No e-Cigarette/Vaping Use: Never Used Second Hand Smoke Exposure: No Use of substances other than those prescribed or required for medical reasons: No Have you been hit, kicked, punched, or otherwise hurt by someone within the past year? If so, by whom?: No Do you feel safe in your current relationship?: Yes Is there a partner from a previous relationship who is making you feel unsafe now?: No Are you made to feel afraid or neglected: No [facility] Practices: jewish Advance Directives: No Advance Directives Information Provided: No Do you have a plan to hurt others: No Plan Recently lost weight without trying: No Nutrition Risks: No Nutritional Risk Patient : No : No service: No Current occupational status: retired Cognitive needs: Yes (Walker, cane, wheelchair) Hearing needs: No Vision needs: Yes (Glasses) Meds Allergies Allergy/AdvReac Type Severity Reaction Status Date / Time meperidine [Demerol] Allergy Unknown Unknown Verified 03/03/24 09:10 morphine [MORPHINE] Allergy Unknown UNKNOWN Verified 03/03/24 09:10 Sulfa (Sulfonamide Allergy Unknown unknown Verified 03/03/24 09:10 Antibiotics) sulfur Allergy Unknown Unknown Verified 03/03/24 09:10 amoxicillin [From Augmentin] AdvReac Intermediate C diff Verified 03/03/24 09:10 clavulanic acid AdvReac Intermediate C diff Verified 03/03/24 09:10 [From Augmentin] Active Medications: Current Medications Acetaminophen (Acetaminophen 325 Mg Tablet) 650 mg PO Q6H PRN PRN Reason: Pain, Mild 1-3,fever,headache Albuterol Sulfate (Albuterol Sulfate 90 Mcg 8 Gm Inhaler) 2 puff INHALE Q4H PRN PRN Reason: bronchospasm Alprazolam (Alprazolam 0.25 Mg Tablet) 0.25 mg PO DAILY [facility] Last Admin: 03/04/24 11:09 Dose: Not Given Alprazolam (Alprazolam 0.5 Mg Tablet) 0.5 mg PO BEDTIME [facility] Last Admin: 03/03/24 21:28 Dose: Not Given Aspirin (Aspirin 81 Mg Tab.Chew) 81 mg PO DAILY [facility] Last Admin: 03/04/24 11:09 Dose: Not Given Atorvastatin Calcium (Atorvastatin Calcium 40 Mg Tablet) 40 mg PO BEDTIME [facility] Last Admin: 03/03/24 21:29 Dose: Not Given Benzonatate (Benzonatate 100 Mg Capsule) 100 mg PO TID PRN PRN Reason: Cough Calcium Carbonate (Calcium Carbonate 750 Mg Tab.Chew) 750 mg PO Q4H PRN PRN Reason: Heartburn Enoxaparin Sodium (Enoxaparin Sodium 40 Mg/0.4 Ml Syringe) 40 mg SUBCUT Q24H [facility] Last Admin: 03/03/24 17:50 Dose: 40 mg Fluticasone Propionate (Fluticasone Propionate Nasal 16 Gm [place]) 2 spray NOSTRIL-B DAILY [facility] Last Admin: 03/04/24 10:44 Dose: Not Given Dextrose/Sodium Chloride (D5ns) 1,000 mls @ 100 mls/hr IVCONT .Q10H [facility] Last Admin: 03/04/24 03:53 Dose: 100 mls/hr Influenza Virus Vaccine (Flu Vacc [id number](6mos Up)/Pf 0.5 Ml Syringe) 0.5 ml IM .ONCE ONE Stop: 03/05/24 09:01 Loratadine (Loratadine 10 Mg Tablet) 10 mg PO DAILY [facility] Last Admin: 03/04/24 11:10 Dose: Not Given Magnesium Hydroxide (Milk Of Magnesia 30 Ml Oral.Susp) 30 ml PO DAILY PRN PRN Reason: Constipation Melatonin (Melatonin 3 Mg Tablet) 6 mg PO BEDTIME PRN PRN Reason: Insomnia Omeprazole (Omeprazole 20 Mg Capsule.Dr) 20 mg PO DAILY@0630 [facility] Last Admin: 03/04/24 06:44 Dose: Not Given Ondansetron HCl (Ondansetron Hcl 4 Mg/2 Ml Vial) 4 mg IVPUSH Q8H PRN PRN Reason: Nausea and Vomiting Sertraline HCl (Sertraline Hcl 100 Mg Tablet) 200 mg PO DAILY [facility] Last Admin: 03/04/24 11:10 Dose: Not Given Sodium Chloride (0.9 % Sodium Chloride Flush 3 Ml Syringe) [facility] Admin: 03/04/24 08:51 Dose: Not Given Vitamin D (Cholecalciferol (Vitamin D3) 25 Mcg Tablet) 25 mcg PO DAILY [facility] Last Admin: 03/04/24 11:09 Dose: Not Given Home Medications ?Medication ?Instructions ?Recorded ?Confirmed ?Last Taken ?Type acetaminophen 325 mg capsule 325 mg PO QID PRN Pain 11/25/19 03/03/24 Unknown History alprazolam 0.5 mg tablet 0.25 mg PO DAILY 03/03/24 03/03/24 03/02/24 History alprazolam 0.5 mg tablet 0.5 mg PO BEDTIME 03/03/24 03/03/24 03/02/24 History cetirizine 10 mg capsule (Zyrtec) 10 mg PO DAILY 03/03/24 03/03/24 03/02/24 History omeprazole 20 mg capsule,delayed 20 mg PO DAILY@0630 03/03/24 03/03/24 03/02/24 History release Physical Exam 2 Vital Signs: Vital Signs: Last Vital Signs Temp 98.0 F 03/04/24 11:58 Pulse 63 03/04/24 11:58 Resp 18 03/04/24 11:58 BP 144/63 H 03/04/24 11:58 Pulse Ox 97 03/04/24 11:58 O2 Del Method Nasal Cannula 03/04/24 11:58 O2 Flow Rate 3 03/04/24 11:58 BMI result Body Mass Index 20.9 Neuro: Other: She is alert and awake with normal spontaneity and fluency of speech. She followed commands and comprehension was intact. She recognize family members. Face was symmetrical. Visual [place] are full. Extraocular muscles were intact. There was no pronator drift. No obvious focal weakness was noted. Plantars were flexor. Results Labs 03/04/24 05:22 03/04/24 05:22 Labs: Short CBC 03/04/24 Range/Units 05:22 WBC 6.7 (4.8-10.8) X10*3/uL Hgb 12.6 (12.0-16.0) g/dl Hct 38.2 (37.0-47.0) % Plt Count 221 (160-400) X10*3/uL BMP 03/04/24 05:22 Sodium 142 Potassium 3.3 Chloride 109 H Carbon Dioxide 26 BUN 11 Creatinine 0.56 Calcium 8.2 L D Urine 03/03/24 Range/Units 14:11 Urine Color Dark Yellow Urine Appearance Clear Urine pH 6.0 (5.0-9.0) Ur Specific [place] >= 1.030 H (1.005-1.025) Urine Protein Trace (Neg-Trace) mg/dL Urine Glucose (UA) Negative (Negative) mg/dL Noncontrast MRI of brain did not reveal any acute abnormality. Cerebral atrophy and mild chronic microvascular ischemic disease was noted. Right frontal sinus opacity was noted, probably chronic. CTA did not reveal any large vessel disease. Assessment and Plan (1) Left-sided weakness: Status: Acute At this time I do not see any overt hemiparesis. She does have left shoulder arthritis that might be contributing to left arm weakness. MRI of brain did not reveal any acute abnormality. Underlying degenerative process was noted. Conservative management with attention to preventive care is recommended. Procedures Date of Service Date of Service: 03/04/24
--- NOTE | 2024-03-04 15:17 | MHC.SL.SWA ---
Speech Pathologist Impression: Risk of Aspiration, Oropharyngeal Dysphagia Risk of Aspiration Due to: Neurological Condition Reduced Cognition Dysphasia Diet Status: Liquid Consistency and Strategies for Safe Swallow: Liquid Intake Recommendation: [place] Thick Liquid Intake Strategies: Small Sips No Straws Solid Food Consistency: Dietary Recommendations: Grnd/Mech Altered (NDD2) Additional Modifications to Solid Foods: Patient w/ mild to moderate oropharyngeal dysphagia, in the setting of dementia and general deconditioning, noted limited dentition, likely exacerbating oral phase difficulties. Patient did demonstrate immediate cough after drinking thin liquids, with daughter reporting this has been happening recently at home as well. Recommend start on GROUND/MECH ALTERED (NDD2) diet and NECTAR THICK liquids, pills whole or crushed in puree. Patient will need 1:1 supervision and aspiration precautions: moisten food with thick sauces/gravies, administer small bites, check oral cavity to ensure patient has cleared residue before giving more bites, alternate bites/sips to promote clearance, liquids via teaspoon or single cup sips, avoid the use of straws, ensure upright 90 degree position during PO intake and for at least 30 minutes afterwards. Oral Medication Intake: Crushed with Puree Please contact the pharmacy regarding appropriate crushable or liquid drug formulations that are available whenever modified delivery is recommended. Compensatory Strategies and Precautions to be Taken for Safe Swallow: Sitting Upright (90 deg) No Straw Liquids from Cup Liquids from Spoon Small Bites and Sips Alternate Liquids/Solids Rate of Ingestion Change Oral Check Avoid Specific Foods Supervision While Eating and Drinking for Safe Swallow: Total Supervision (1:1) Foods to Avoid: Hard, crunchy, or chewy foods; mixed consistencies Swallowing Recommended Treatments: Compens. Strategy Educat. Recommendation for Speech: Inpatient Speech Therapy Comment: Frequency/Duration: M-F Date Range for Service Req: Timeline to reassess: PRN Project Management Specialist Clinican/Clinical Fellow: No Supervisory Statement: I have reviewed and agree with the student/clinical fellow's documentation: N/A Speech Language Pathologist: Rebecca Robbins M.A., CCC-EMERGENCY RESPONSE COORDINATOR
[2024-03-04] MEDS: Enoxaparin Sodium 40 MG/0.4 ML SYRINGE SUBCUT (16:14)
[2024-03-04] MEDS: Atorvastatin Calcium 40 MG TABLET PO (22:15)
[2024-03-04] MEDS: ALPRAZolam 0.5 MG TABLET PO (22:15)
[2024-03-05] VITALS (8 sets, daily range): BP systolic 137–148; BP diastolic 63–67; PULSE 60–69; RESP 16–18; TEMP 36.2–36.7; O2SAT 94–98
[2024-03-05] MEDS: Dextrose 5 % and 0.9 % NaCl 1,000 ML 100 ML IVCONT (00:01)
[2024-03-05] MEDS: Omeprazole 20 MG CAPSULE.DR PO (05:53)
[2024-03-05 07:20] LABS: MANUAL DIFF FLAG NO
[2024-03-05 07:28] LABS: Basophils Percent Auto 0.1 % (0-2); Eosinophils Percent Auto 0.5 % (0-4); Hematocrit 37.5 % (37.0-47.0); Hemoglobin 12.6 g/dl (12.0-16.0); Imm Gran Abs Auto 0.04 X10*3/uL (0.00-0.03); Imm Gran Pct Auto 0.5 % (0.0-0.4); Lymphocytes Absolute Auto 0.8 X10*3/uL (1.2-4.9); Lymphocytes Percent Auto 8.5 % (20-40); Mean Corpuscular HGB Conc 33.6 g/dl (31.0-35.0); Mean Corpuscular Hemoglobin 28.6 pg (27.0-33.0); Mean Platelet Volume 9.9 fL (9.4-12.3); Monocytes Absolute Auto 0.8 X10*3/uL (0.1-1.2); Monocytes Percent Auto 8.5 % (2-11); Neutrophils Absolute Auto 7.2 x10*3/uL (2.0-8.3); Neutrophils Percent Auto 81.9 % (45-73); Platelet Count 257 X10*3/uL (160-400); Red Blood Count 4.41 X10*6/uL (4.20-5.50); Red Cell Distribution Width 12.7 % (11.0-16.0); White Blood Count 8.8 X10*3/uL (4.8-10.8)
[2024-03-05 07:42] LABS: Blood Urea Nitrogen 7 mg/dL (9-16); Calcium 8.3 mg/dL (8.4-10.2); Creatinine Clr Calc Pharmacy 62.5; Estimated Glomerular Filt Rate > 60; Glucose Random 136 mg/dL (60-115)
[2024-03-05 07:56] LABS: Anion Gap 7 (12-20); Carbon Dioxide 26 mmol/L (22-29); Chloride 113 mmol/L (96-108); Sodium 143 mmol/L (135-145)
[2024-03-05 08:16] LABS: Potassium 2.9 mmol/L (3.3-5.1)
[2024-03-05] MEDS: Loratadine 10 MG TABLET PO (09:31)
[2024-03-05] MEDS: 0.9 % Sodium Chloride Flush 3 ML SYRINGE IVFLUSH ×3 (09:31→22:15)
[2024-03-05] MEDS: Aspirin 81 MG TAB.CHEW PO (09:31)
[2024-03-05] MEDS: ALPRAZolam 0.25 MG TABLET PO (09:32)
[2024-03-05] MEDS: Sertraline HCL 100 MG TABLET 200 MG PO (09:32)
[2024-03-05] MEDS: Cholecalciferol (Vitamin D3) 25 MCG TABLET PO (09:32)
[2024-03-05] MEDS: Potassium Chloride/H20 10 MEQ/100 ML PIGGYBACK 100 MEQ IV ×2 (10:58→12:18)
--- NOTE | 2024-03-05 11:57 | MHC.SL.SWA ---
Speech Pathologist Impression: Risk of Aspiration, Oropharyngeal Dysphagia Risk of Aspiration Due to: Neurological Condition Reduced Cognition Dysphasia Diet Status: Downgrade from NDD2 to NDD1 Liquid Consistency and Strategies for Safe Swallow: Liquid Intake Recommendation: [place] Thick Liquid Intake Strategies: Small Sips No Straws Solid Food Consistency: Dietary Recommendations: Pureed (NDD1) Additional Modifications to Solid Foods: Recommend DOWNGRADE to PUREED (NDD1) solids, continue on NECTAR THICK liquids, pills WHOLE or CRUSHED in PUREE. Patient will need 1:1 supervision and aspiration precautions: administer small bites, check oral cavity to ensure patient has cleared residue before giving more bites, alternate bites/sips to promote clearance, liquids via teaspoon or single cup sips, avoid the use of straws, ensure upright 90 degree position during PO intake and for at least 30 minutes afterwards. Oral Medication Intake: Whole with Puree Please contact the pharmacy regarding appropriate crushable or liquid drug formulations that are available whenever modified delivery is recommended. Compensatory Strategies and Precautions to be Taken for Safe Swallow: Sitting Upright (90 deg) No Straw Small Bites and Sips Alternate Liquids/Solids Rate of Ingestion Change Oral Check Avoid Specific Foods Supervision While Eating and Drinking for Safe Swallow: Total Assistance (1:1) Foods to Avoid: [place] tough, dry, crunchy, or chewy foods; mixed consistencies Swallowing Recommended Treatments: Compens. Strategy Educat. Recommendation for Speech: Inpatient Speech Therapy Modified Barium Swallow Study - Outpatient Comment: Patient w/ mild to moderate oropharyngeal dysphagia, in the setting of dementia and general deconditioning, noted limited dentition, likely exacerbating oral phase difficulties. Patient did demonstrate immediate cough after drinking thin liquids, with daughter reporting this has been happening recently at home as well. Frequency/Duration: M-F Date Range for Service Req: Timeline to reassess: PRN Language Pathologist Clinican/Clinical Fellow: No Supervisory Statement: I have reviewed and agree with the student/clinical fellow's documentation: N/A Speech Language Pathologist: Rebecca Robbins M.A., CCC-MOBILE HEAVY EQUIPMENT OPERATOR
[2024-03-05] MEDS: Potassium Chloride Packet 20 MEQ PACKET 40 MEQ PO (12:10)
--- NOTE | 2024-03-05 13:08 | P.PNIM_ITS ---
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 feels confused and weak no other events Review of Systems Review of Systems: Yes all other systems are reviewed and are negative Physical Exam 2 Vital Signs: Vital Signs: Last Vital Signs Temp 97.7 F 03/05/24 11:04 Pulse 60 03/05/24 11:04 Resp 18 03/05/24 11:04 BP 142/66 H 03/05/24 11:04 Pulse Ox 94 03/05/24 11:04 O2 Del Method Room Air 03/05/24 11:04 O2 Flow Rate 2 03/05/24 04:00 BMI result Body Mass Index 20.9 Const: Other: Constitutional : Awake, interactive, not in distress Neck : Normal inspection, Supple Cardiovascular : RRR, no JVP, no lower extremity edema Respiratory : good bilateral air entry, no crackles, wheezes or rhonchi Gastrointestinal: soft, lax, Normal bowel sounds, Non tender Skin : Warm, Dry Neurological : Alert & oriented to self only, No focal deficit, no facial droop , CN 2-12 within normal Objective Data Active Medications Acetaminophen (Acetaminophen 325 Mg Tablet) 650 mg PO Q6H PRN PRN Reason: Pain, Mild 1-3,fever,headache Albuterol Sulfate (Albuterol Sulfate 90 Mcg 8 Gm Inhaler) 2 puff INHALE Q4H PRN PRN Reason: bronchospasm Alprazolam (Alprazolam 0.25 Mg Tablet) 0.25 mg PO DAILY [facility] Last Admin: 03/05/24 09:32 Dose: 0.25 mg Documented By: PRIYANKA Alprazolam (Alprazolam 0.5 Mg Tablet) 0.5 mg PO BEDTIME [facility] Last Admin: 03/04/24 22:15 Dose: 0.5 mg Documented By: CON Aspirin (Aspirin 81 Mg Tab.Chew) 81 mg PO DAILY [facility] Last Admin: 03/05/24 09:31 Dose: 81 mg Documented By: PRIYANKA Atorvastatin Calcium (Atorvastatin Calcium 40 Mg Tablet) 40 mg PO BEDTIME [facility] Last Admin: 03/04/24 22:15 Dose: 40 mg Documented By: CON Benzonatate (Benzonatate 100 Mg Capsule) 100 mg PO TID PRN PRN Reason: Cough Calcium Carbonate (Calcium Carbonate 750 Mg Tab.Chew) 750 mg PO Q4H PRN PRN Reason: Heartburn Enoxaparin Sodium (Enoxaparin Sodium 40 Mg/0.4 Ml Syringe) 40 mg SUBCUT Q24H [facility] Last Admin: 03/04/24 16:14 Dose: 40 mg Documented By: BRENDA Fluticasone Propionate (Fluticasone Propionate Nasal 16 Gm [place]) 2 spray NOSTRIL-B DAILY [facility] Last Admin: 03/04/24 10:44 Dose: Not Given Documented By: BRENDA Non-Admin Reason: Med Not Available Loratadine (Loratadine 10 Mg Tablet) 10 mg PO DAILY [facility] Last Admin: 03/05/24 09:31 Dose: 10 mg Documented By: PRIYANKA Magnesium Hydroxide (Milk Of Magnesia 30 Ml Oral.Susp) 30 ml PO DAILY PRN PRN Reason: Constipation Melatonin (Melatonin 3 Mg Tablet) 6 mg PO BEDTIME PRN PRN Reason: Insomnia Omeprazole (Omeprazole 20 Mg Capsule.Dr) 20 mg PO DAILY@0630 [facility] Last Admin: 03/05/24 05:53 Dose: 20 mg Documented By: CON Ondansetron HCl (Ondansetron Hcl 4 Mg/2 Ml Vial) 4 mg IVPUSH Q8H PRN PRN Reason: Nausea and Vomiting Sertraline HCl (Sertraline Hcl 100 Mg Tablet) 200 mg PO DAILY [facility] Last Admin: 03/05/24 09:32 Dose: 200 mg Documented By: PRIYANKA Sodium Chloride (0.9 % Sodium Chloride Flush 3 Ml Syringe) 3 ml IVFLUSH QSHIFT [facility] Last Admin: 03/05/24 09:31 Dose: 3 ml Documented By: PRIYANKA Vitamin D (Cholecalciferol (Vitamin D3) 25 Mcg Tablet) 25 mcg PO DAILY [facility] Last Admin: 03/05/24 09:32 Dose: 25 mcg Documented By: PRIYANKA Labs 03/05/24 07:14 03/05/24 07:14 Labs: Laboratory Results - last 24 hr 03/05/24 07:14 MCV 85.0 MCH 28.6 MCHC 33.6 RDW 12.7 Plt Count 257 MPV 9.9 Immature Gran % (Auto) 0.5 H Neut % (Auto) 81.9 H Lymph % (Auto) 8.5 L [place] % (Auto) 8.5 Eos % (Auto) 0.5 Baso % (Auto) 0.1 Lymph # (Auto) 0.8 L [place] # (Auto) 0.8 Eos # (Auto) 0.0 Baso # (Auto) 0.0 Abs Immat Gran (auto) 0.04 H Absolute Neuts (auto) 7.2 Absolute Nucleated RBC 0.000 Nucleated RBC % (auto) 0.0 Anion Gap 7 L Estim Creat Clear Calc 62.5 Estimated GFR > 60 Random Glucose 136 H Calcium 8.3 L Assessment and Plan (1) Swallowing problem: Status: Acute (2) Physical deconditioning: Status: Acute (3) COVID-19 virus infection: Status: Acute Plan An 83 years old lady with PMH of dementia, GERD, anxiety, scoliosis, COPD, HLD, HTN among others who presented to ED with difficulties swallowing and left sided weakness. LEft sided weakness seems to be related to general deconditioning, could be TIA event CT, CTA , MRI negative for acute findings continue ASA, Statin Neurology input appreciated lipid profile Swallowing problem CARDBOARD CUTTER eval , NDD1 IVF dcd physical deconditioning related to recent Covid infection; still testing positive Not hypoxic precautions PT eval acute hypokalemia replacement given, follow BMP Anxiety Home medicaitons Hx COPD not in exacerbation, prn inhalers DVT PPx Lovenox The patient will need overnight hospital stay for swallowing problem, generalized weakness pending treatment of deconditioning and Covid infection Quality Stroke Does the patient have a stroke diagnosis?: No VTE Prior VTE?: No VTE Risk Level:: Medical - moderate - high VTE Device Contraindication: Treatment Not Indicated VTE Drug Contraindication: N/A - Med Ordered
--- NOTE | 2024-03-05 14:56 | HO.WOUND ---
Wound Consult: Initial 83yr old?[place] [facility] [place]- See progress notes and H&P for detailed history.? Wound consult placed for buttock wound POA.? Patient agreeable to assessment and photo documentation.? Sacrum Etiology: ?Stage 2 Pressure Injury ?Present on Admission Measurements: 1cm x 0.3cm x 0.2cm Wound Bed: red moist wound bed Drainage / Odor: none noted Edges: ? linear [place] wound: red slow to consuelo tissue - ? No Induration, Fluctuance or Warmth noted Pain: tenderness reported Goals of Treatment: ? Triad and off load pressure Bilateral Heels assessed - remain intact - pink blanchable - float heels off of surface of bed with pillows. May apply preventative foam dressings to protect from friction and allow for pressure redistribution. Recommendations: 1. Turn and Reposition every 2 hours and as needed for patient comfort.? Use pillows or wedges to support off loading positions. 2. Off Load all bony prominences with use of pillows and heel boots if needed.? Apply Preventative foams where needed. ? 3. Monitor for incontinence and moisture control, use barrier creams when needed for prevention and treatment. 4. Provide adequate and supplemental nutrition.? 5. Order low air loss mattress. 6. When applicable maintain blood glucose levels per Providers order. 7. Sacrum - Off Load Pressure with Q2 hr turns and use of pillows - Cleanse with PH balance spray or wipes, pat dry. ?Apply thin layer of Triad to wound bed. Do not remove all of paste between applications as this may cause further skin damage.? Cover with foam dressing to aid in off loading and protection from friction. Change every 5 days and PRN. Discontinue brief use as this is trapping moisture against her skin while in bed. 8. Bilateral Heels - Float heels off of surface of bed with pillows. May apply preventative foam dressings to protect from friction and allow for pressure redistribution. Re-consult wound care Nurse for wound deterioration or wound changes.
[2024-03-05] MEDS: Enoxaparin Sodium 40 MG/0.4 ML SYRINGE SUBCUT (16:07)
[2024-03-05] MEDS: ALPRAZolam 0.5 MG TABLET PO (22:15)
[2024-03-05] MEDS: Melatonin 3 MG TABLET 6 MG PO (22:15)
[2024-03-05] MEDS: Atorvastatin Calcium 40 MG TABLET PO (22:15)
[2024-03-06 03:51] VITALS: BP 143/63; PULSE 66; RESP 16; TEMP 36; O2SAT 97
[2024-03-06 07:37] LABS: Anion Gap 10 (12-20); Blood Urea Nitrogen 7 mg/dL (9-16); Calcium 8.4 mg/dL (8.4-10.2); Carbon Dioxide 25 mmol/L (22-29); Chloride 111 mmol/L (96-108); Creatinine Clr Calc Pharmacy 63.8; Estimated Glomerular Filt Rate > 60; Glucose Random 99 mg/dL (60-115); Potassium 3.3 mmol/L (3.3-5.1); Sodium 143 mmol/L (135-145)
[2024-03-06 07:43] VITALS: BP 145/69; PULSE 61; RESP 17; TEMP 36.4; O2SAT 96
[2024-03-06] MEDS: ALPRAZolam 0.25 MG TABLET PO (10:09)
[2024-03-06] MEDS: Loratadine 10 MG TABLET PO (10:09)
[2024-03-06] MEDS: Aspirin 81 MG TAB.CHEW PO (10:09)
[2024-03-06] MEDS: Sertraline HCL 100 MG TABLET 200 MG PO (10:09)
[2024-03-06] MEDS: Cholecalciferol (Vitamin D3) 25 MCG TABLET PO (10:10)
[2024-03-06] MEDS: 0.9 % Sodium Chloride Flush 3 ML SYRINGE IVFLUSH ×3 (10:10→21:24)
[2024-03-06] MEDS: Benzonatate 100 MG CAPSULE PO ×3 (10:24→21:24)
[2024-03-06] MEDS: guaiFENesin DM 600/30 1 TAB TAB.ER.12H PO ×2 (10:24→21:24)
[2024-03-06 11:56] VITALS: BP 133/68; PULSE 66; RESP 18; TEMP 36.9; O2SAT 96
--- NOTE | 2024-03-06 13:31 | HO.PM.IMPN ---
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 feels little better but remains weak and tired no other events Review of Systems Review of Systems: Yes all other systems are reviewed and are negative Physical Exam Vital Signs: Vital Signs: Last Vital Signs Temp 98.5 F 03/06/24 11:56 Pulse 66 03/06/24 11:56 Resp 18 03/06/24 11:56 BP 133/68 03/06/24 11:56 Pulse Ox 96 03/06/24 11:56 O2 Del Method Room Air 03/06/24 11:56 O2 Flow Rate 2 03/06/24 07:43 BMI result Body Mass Index 20.9 Const: Other: Constitutional : Awake, interactive, not in distress Neck : Normal inspection, Supple Cardiovascular : RRR, no JVP, no lower extremity edema Respiratory : good bilateral air entry, no crackles, wheezes or rhonchi Gastrointestinal: soft, lax, Normal bowel sounds, Non tender Skin : Warm, Dry Neurological : Alert & oriented to self only, No focal deficit, no facial droop Objective Data Active Medications Acetaminophen (Acetaminophen 325 Mg Tablet) 650 mg PO Q6H PRN PRN Reason: Pain, Mild 1-3,fever,headache Albuterol Sulfate (Albuterol Sulfate 90 Mcg 8 Gm Inhaler) 2 puff INHALE Q4H PRN PRN Reason: bronchospasm Alprazolam (Alprazolam 0.25 Mg Tablet) 0.25 mg PO DAILY [facility] Last Admin: 03/06/24 10:09 Dose: 0.25 mg Documented By: SUSANNA Alprazolam (Alprazolam 0.5 Mg Tablet) 0.5 mg PO BEDTIME [facility] Last Admin: 03/05/24 22:15 Dose: 0.5 mg Documented By: CON Aspirin (Aspirin 81 Mg Tab.Chew) 81 mg PO DAILY [facility] Last Admin: 03/06/24 10:09 Dose: 81 mg Documented By: SUSANNA Atorvastatin Calcium (Atorvastatin Calcium 40 Mg Tablet) 40 mg PO BEDTIME [facility] Last Admin: 03/05/24 22:15 Dose: 40 mg Documented By: CON Benzonatate (Benzonatate 100 Mg Capsule) 100 mg PO TID [facility] Last Admin: 03/06/24 10:24 Dose: 100 mg Documented By: SUSANNA Calcium Carbonate (Calcium Carbonate 750 Mg Tab.Chew) 750 mg PO Q4H PRN PRN Reason: Heartburn Enoxaparin Sodium (Enoxaparin Sodium 40 Mg/0.4 Ml Syringe) 40 mg SUBCUT Q24H [facility] Last Admin: 03/05/24 16:07 Dose: 40 mg Documented By: PRIYANKA Fluticasone Propionate (Fluticasone Propionate Nasal 16 Gm [place]) 2 spray NOSTRIL-B DAILY [facility] Last Admin: 03/06/24 10:10 Dose: Not Given Documented By: SUSANNA Non-Admin Reason: Patient Refused Guaifenesin/Dextromethorphan (Guaifenesin Dm 600/30 1 Tab Tab.Er.12h) 1 tab PO BID [facility] Last Admin: 03/06/24 10:24 Dose: 1 tab Documented By: SUSANNA Loratadine (Loratadine 10 Mg Tablet) 10 mg PO DAILY [facility] Last Admin: 03/06/24 10:09 Dose: 10 mg Documented By: SUSANNA Magnesium Hydroxide (Milk Of Magnesia 30 Ml Oral.Susp) 30 ml PO DAILY PRN PRN Reason: Constipation Melatonin (Melatonin 3 Mg Tablet) 6 mg PO BEDTIME PRN PRN Reason: Insomnia Last Admin: 03/05/24 22:15 Dose: 6 mg Documented By: CON Omeprazole (Omeprazole 20 Mg Capsule.Dr) 20 mg PO DAILY@0630 [facility] Last Admin: 03/06/24 05:16 Dose: Not Given Documented By: CON Non-Admin Reason: Patient Refused Ondansetron HCl (Ondansetron Hcl 4 Mg/2 Ml Vial) 4 mg IVPUSH Q8H PRN PRN Reason: Nausea and Vomiting Sertraline HCl (Sertraline Hcl 100 Mg Tablet) 200 mg PO DAILY [facility] Last Admin: 03/06/24 10:09 Dose: 200 mg Documented By: SUSANNA Sodium Chloride (0.9 % Sodium Chloride Flush 3 Ml Syringe) 3 ml IVFLUSH QSHIFT [facility] Last Admin: 03/06/24 10:10 Dose: 3 ml Documented By: SUSANNA Vitamin D (Cholecalciferol (Vitamin D3) 25 Mcg Tablet) 25 mcg PO DAILY [facility] Last Admin: 03/06/24 10:10 Dose: 25 mcg Documented By: SUSANNA Labs 03/05/24 07:14 03/06/24 06:56 Labs: Laboratory Results - last 24 hr 03/06/24 06:56 Anion Gap 10 L Estim Creat Clear Calc 63.8 Estimated GFR > 60 Random Glucose 99 Calcium 8.4 Assessment and Plan (1) Swallowing problem: Status: Acute (2) Physical deconditioning: Status: Acute (3) COVID-19 virus infection: Status: Acute Plan An 83 years old lady with PMH of dementia, GERD, anxiety, scoliosis, COPD, HLD, HTN among others who presented to ED with difficulties swallowing and left sided weakness. 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 , NDD1 IVF dcd physical deconditioning related to recent Covid infection; still testing positive Not hypoxic precautions PT eval rec SNF, HCP thinking of taking her home on hospice acute hypokalemia replacement given, follow BMP Anxiety Home medicaitons Hx COPD not in exacerbation, prn inhalers DVT PPx Lovenox The patient will need overnight hospital stay for swallowing problem, generalized weakness pending treatment of deconditioning and Covid infection Quality Stroke Does the patient have a stroke diagnosis?: No VTE Prior VTE?: No VTE Risk Level:: Medical - moderate - high VTE Device Contraindication: Treatment Not Indicated VTE Drug Contraindication: N/A - Med Ordered
[2024-03-06 14:00] VITALS: BP 157/63; PULSE 65; RESP 18; TEMP 36.9; O2SAT 98
--- NOTE | 2024-03-06 14:52 | MHC.CM.PN ---
This CM met with pts daughter Jaimie per her request, she is requesting hospice services for her mother, and would like to take her home and care for her there. This CM notified hospitalist, who was in agreement with a hospice referral being sent./ Per Jaimie [facility] was 1st agency preference, referral placed to them. Per [facility] they are not contracted with the pts insurance. Referral to hospice sent to [facility], it is under review.
[2024-03-06] MEDS: Enoxaparin Sodium 40 MG/0.4 ML SYRINGE SUBCUT (16:30)
[2024-03-06 19:18] VITALS: BP 165/71; PULSE 63; RESP 16; TEMP 36.3; O2SAT 97
[2024-03-06] MEDS: ALPRAZolam 0.5 MG TABLET PO (21:24)
[2024-03-06] MEDS: Melatonin 3 MG TABLET 6 MG PO (21:24)
[2024-03-06] MEDS: Atorvastatin Calcium 40 MG TABLET PO (21:24)
[2024-03-06 23:46] VITALS: BP 159/74; PULSE 60; RESP 16; TEMP 36; O2SAT 98
[2024-03-07 07:44] VITALS: BP 144/69; PULSE 64; RESP 20; TEMP 36.5; O2SAT 96
[2024-03-07] MEDS: Benzonatate 100 MG CAPSULE PO ×3 (11:18→22:23)
[2024-03-07] MEDS: Loratadine 10 MG TABLET PO (11:18)
[2024-03-07] MEDS: Aspirin 81 MG TAB.CHEW PO (11:18)
[2024-03-07] MEDS: ALPRAZolam 0.25 MG TABLET PO (11:18)
[2024-03-07] MEDS: guaiFENesin DM 600/30 1 TAB TAB.ER.12H PO ×2 (11:19→22:23)
[2024-03-07] MEDS: Cholecalciferol (Vitamin D3) 25 MCG TABLET PO (11:19)
[2024-03-07] MEDS: 0.9 % Sodium Chloride Flush 3 ML SYRINGE IVFLUSH ×3 (11:19→22:23)
[2024-03-07] MEDS: Milk of Magnesia 30 ML ORAL.SUSP PO (11:25)
[2024-03-07 11:35] VITALS: BP 148/63; PULSE 62; RESP 20; TEMP 36.6; O2SAT 96
--- NOTE | 2024-03-07 15:46 | MHC.CM.PN ---
[facility] met with pts daughter Jaimie today. Per [facility] adult protective caseworker, Karina, they plan to order/deliver DME for the pt tomorrow 03/08, and plan to admit pt to their services on Thursday 03/09. Karina will have us contacted through [facility] to confirm DME delivery. Hospice will let us know when to arrange transport for the pt to go home on Friday, for the pt to be admitted that day. Pts daughter Jaimie also requesting a cane weigher helper visit her mother, this CM contact [employer]fuels Processing Technician Joe [facility], Jaimie was updated.
[2024-03-07 16:00] VITALS: BP 169/72; PULSE 62; RESP 20; TEMP 36.3; O2SAT 94
[2024-03-07] MEDS: Enoxaparin Sodium 40 MG/0.4 ML SYRINGE SUBCUT (16:42)
[2024-03-07 20:00] VITALS: BP 180/72; PULSE 60; RESP 16; TEMP 36.2; O2SAT 98
[2024-03-07] MEDS: Melatonin 3 MG TABLET 6 MG PO (22:23)
[2024-03-07] MEDS: Atorvastatin Calcium 40 MG TABLET PO (22:23)
[2024-03-07] MEDS: ALPRAZolam 0.5 MG TABLET PO (22:23)
[2024-03-08] VITALS: BP 163/74; PULSE 60; RESP 14; TEMP 36.2; O2SAT 96
[2024-03-08 03:41] VITALS: BP 147/68; PULSE 71; RESP 14; TEMP 36.1; O2SAT 97
[2024-03-08 07:56] VITALS: BP 128/54; PULSE 60; RESP 20; TEMP 36.9; O2SAT 96
[2024-03-08] MEDS: Aspirin 81 MG TAB.CHEW PO (09:41)
[2024-03-08] MEDS: ALPRAZolam 0.25 MG TABLET PO (09:41)
[2024-03-08] MEDS: Sertraline HCL 100 MG TABLET 200 MG PO (09:42)
[2024-03-08] MEDS: guaiFENesin DM 600/30 1 TAB TAB.ER.12H PO ×2 (09:42→20:00)
[2024-03-08] MEDS: Cholecalciferol (Vitamin D3) 25 MCG TABLET PO (09:42)
[2024-03-08] MEDS: Loratadine 10 MG TABLET PO (09:42)
[2024-03-08] MEDS: 0.9 % Sodium Chloride Flush 3 ML SYRINGE IVFLUSH ×3 (09:44→20:00)
[2024-03-08 11:54] VITALS: BP 139/65; PULSE 62; RESP 18; TEMP 36.3; O2SAT 96
--- NOTE | 2024-03-08 13:49 | MHC.SL.SWA ---
Speech Pathologist Impression: Adequate oropharyngeal coordination for smooth, homogenous consistencies (nectar thickened and pureed) Risk of Aspiration Due to: Neurological Condition Reduced Cognition Dysphasia Diet Status: Liquid Consistency and Strategies for Safe Swallow: Liquid Intake Recommendation: [place] Thick Liquid Intake Strategies: Small Sips Solid Food Consistency: Dietary Recommendations: Pureed (NDD1) Additional Modifications to Solid Foods: Recommend PUREED (NDD1) solids, continue on NECTAR THICK liquids, pills WHOLE or CRUSHED in PUREE. Patient will need 1:1 supervision and aspiration precautions: administer small bites, check oral cavity to ensure patient has cleared residue before giving more bites, alternate bites/sips to promote clearance, liquids via teaspoon or single cup sips, straw sips ok, ensure upright 90 degree position during PO intake and for at least 30 minutes afterwards. Oral Medication Intake: Crushed with Puree Please contact the pharmacy regarding appropriate crushable or liquid drug formulations that are available whenever modified delivery is recommended. Compensatory Strategies and Precautions to be Taken for Safe Swallow: Sitting Upright (90 deg) Small Bites and Sips Alternate Liquids/Solids Rate of Ingestion Change Oral Check Avoid Specific Foods Supervision While Eating and Drinking for Safe Swallow: Total Assistance (1:1) Foods to Avoid: [place] tough, dry, crunchy, or chewy foods; mixed consistencies Swallowing Recommended Treatments: Compens. Strategy Educat. Recommendation for Speech: Inpatient Speech Therapy Modified Barium Swallow Study - Outpatient Comment: Patient has mild/moderate oropharyngeal dysphagia but tolerates purees and NTL with good coordination across phases of swallow. Pt will be d/c'd home with hospice, EMBEDDED SOFTWARE DEVELOPMENT ENGINEER provided education to pt and son, both in agreement with [facility] for small amounts of PO, frequent breaks, easiest to tolerate consistencies, and consult with EMBEDDED SOFTWARE DEVELOPMENT ENGINEER through hospice team if indicated. Frequency/Duration: M-F Date Range for Service Req: Timeline to reassess: PRN Rn Bariatric Clinican/Clinical Fellow: No Supervisory Statement: I have reviewed and agree with the student/clinical fellow's documentation: N/A Speech Language Pathologist: Flores Rodriguez M.S., [facility]-EMBEDDED SOFTWARE DEVELOPMENT ENGINEER
--- NOTE | 2024-03-08 14:08 | HO.PM.IMPN ---
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 emains weak and tired , tolerating more diet no other events Review of Systems Review of Systems: Yes all other systems are reviewed and are negative Physical Exam Vital Signs: Vital Signs: Last Vital Signs Temp 97.3 F 03/08/24 11:54 Pulse 62 03/08/24 11:54 Resp 18 03/08/24 11:54 BP 139/65 03/08/24 11:54 Pulse Ox 96 03/08/24 11:54 O2 Del Method Nasal Cannula 03/08/24 11:54 O2 Flow Rate 2 03/08/24 11:54 BMI result Body Mass Index 20.9 Const: Other: Constitutional : Awake, interactive, not in distress Neck : Normal inspection, Supple Cardiovascular : RRR, no JVP, no lower extremity edema Respiratory : good bilateral air entry, no crackles, wheezes or rhonchi Gastrointestinal: soft, lax, Normal bowel sounds, Non tender Skin : Warm, Dry Neurological : Alert & oriented to self only, No focal deficit, no facial droop Objective Data Active Medications Acetaminophen (Acetaminophen 325 Mg Tablet) 650 mg PO Q6H PRN PRN Reason: Pain, Mild 1-3,fever,headache Albuterol Sulfate (Albuterol Sulfate 90 Mcg 8 Gm Inhaler) 2 puff INHALE Q4H PRN PRN Reason: bronchospasm Alprazolam (Alprazolam 0.25 Mg Tablet) 0.25 mg PO DAILY [facility] Last Admin: 03/08/24 09:41 Dose: 0.25 mg Documented By: SHEILA Alprazolam (Alprazolam 0.5 Mg Tablet) 0.5 mg PO BEDTIME [facility] Last Admin: 03/07/24 22:23 Dose: 0.5 mg Documented By: DAWIT Aspirin (Aspirin 81 Mg Tab.Chew) 81 mg PO DAILY [facility] Last Admin: 03/08/24 09:41 Dose: 81 mg Documented By: SHEILA Atorvastatin Calcium (Atorvastatin Calcium 40 Mg Tablet) 40 mg PO BEDTIME [facility] Last Admin: 03/07/24 22:23 Dose: 40 mg Documented By: DAWIT Benzonatate (Benzonatate 100 Mg Capsule) 100 mg PO TID [facility] Last Admin: 03/08/24 14:01 Dose: Not Given Documented By: SHEILA Non-Admin Reason: cannot crush Calcium Carbonate (Calcium Carbonate 750 Mg Tab.Chew) 750 mg PO Q4H PRN PRN Reason: Heartburn Enoxaparin Sodium (Enoxaparin Sodium 40 Mg/0.4 Ml Syringe) 40 mg SUBCUT Q24H [facility] Last Admin: 03/07/24 16:42 Dose: 40 mg Documented By: SUSANNA Fluticasone Propionate (Fluticasone Propionate Nasal 16 Gm [place]) 2 spray NOSTRIL-B DAILY [facility] Last Admin: 03/08/24 09:44 Dose: Not Given Documented By: SHEILA Non-Admin Reason: Med Not Available Guaifenesin/Dextromethorphan (Guaifenesin Dm 600/30 1 Tab Tab.Er.12h) 1 tab PO BID [facility] Last Admin: 03/08/24 09:42 Dose: 1 tab Documented By: SHEILA Loratadine (Loratadine 10 Mg Tablet) 10 mg PO DAILY [facility] Last Admin: 03/08/24 09:42 Dose: 10 mg Documented By: SHEILA Magnesium Hydroxide (Milk Of Magnesia 30 Ml Oral.Susp) 30 ml PO DAILY PRN PRN Reason: Constipation Last Admin: 03/07/24 11:25 Dose: 30 ml Documented By: SUSANNA Melatonin (Melatonin 3 Mg Tablet) 6 mg PO BEDTIME PRN PRN Reason: Insomnia Last Admin: 03/07/24 22:23 Dose: 6 mg Documented By: DAWIT Omeprazole (Omeprazole 20 Mg Capsule.Dr) 20 mg PO DAILY@0630 [facility] Last Admin: 03/08/24 09:41 Dose: Not Given Documented By: SHEILA Non-Admin Reason: cannot be crushed Ondansetron HCl (Ondansetron Hcl 4 Mg/2 Ml Vial) 4 mg IVPUSH Q8H PRN PRN Reason: Nausea and Vomiting Sertraline HCl (Sertraline Hcl 100 Mg Tablet) 200 mg PO DAILY [facility] Last Admin: 03/08/24 09:42 Dose: 200 mg Documented By: SHEILA Sodium Chloride (0.9 % Sodium Chloride Flush 3 Ml Syringe) 3 ml IVFLUSH QSHIFT [facility] Last Admin: 03/08/24 09:44 Dose: 3 ml Documented By: SHEILA Vitamin D (Cholecalciferol (Vitamin D3) 25 Mcg Tablet) 25 mcg PO DAILY [facility] Last Admin: 03/08/24 09:42 Dose: 25 mcg Documented By: SHEILA Labs 03/05/24 07:14 03/06/24 06:56 Assessment and Plan (1) Swallowing problem: Status: Acute (2) Physical deconditioning: Status: Acute (3) COVID-19 virus infection: Status: Acute Plan An 83 years old lady with PMH of dementia, GERD, anxiety, scoliosis, COPD, HLD, HTN among others who presented to ED with difficulties swallowing and left sided weakness. physical deconditioning related to recent Covid infection; still testing positive Not hypoxic precautions PT eval rec SNF HCP signed MOLST and changed her status to DNR\DNI. 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
--- NOTE | 2024-03-08 14:23 | P.CDIM_ITS ---
PROVIDER RESPONSE TEXT: To clarify, the appropriate diagnosis supported by the clinical indicators: Pressure Injury Stage 2 sacrum: confirmed QUERY TEXT: PHYSICIAN'S DOCUMENTATION REQUEST Date of Query: 03/08/2024 09:09 AM EST Patient Name: Yolanda Morgan Admit Date: 03/03/2024 Dear Shelbi Palacios MD, A review of the medical record indicates additional documentation may be needed. Please review below and update the documentation accordingly. Clinical Indicators: Wound care consultation note 03/05/24 - Stage 2 pressure injury sacrum, present on arrival. Cover with foam dressing to aid in off loading and protection from friction. Based on the above, could you please provide further information regarding the ulcer/wound/injury: Pressure Injury Stage 2 sacrum Possible, probable, suspected, resolved etc. Other etiology of skin integrity Other (explain) Clinically unable to determine (explain) Thank you, Sammie Godfrey, CCS, CDIS Use of terms such as suspected, likely, concern for, or probable (associated with a specific diagnosi s that is being evaluated, monitored, or treated as if it exists) are acceptable and can be coded in the inpatient se tting, when documented at the time of discharge. Please use your independent medical judgment in providing your response. THIS QUERY IS PART OF THE PERMANENT MEDICAL RECORD
--- NOTE | 2024-03-08 15:15 | MHC.CM.PN ---
Per rounds and EMR review, pt to DC on 03/09/24 to home with [facility].
[2024-03-08 16:00] VITALS: BP 122/64; PULSE 74; RESP 18; TEMP 36.2; O2SAT 95
[2024-03-08] MEDS: Enoxaparin Sodium 40 MG/0.4 ML SYRINGE SUBCUT (16:45)
[2024-03-08 19:43] VITALS: BP 122/58; PULSE 70; RESP 16; TEMP 36.1; O2SAT 93
[2024-03-08] MEDS: ALPRAZolam 0.5 MG TABLET PO (19:59)
[2024-03-08] MEDS: Atorvastatin Calcium 40 MG TABLET PO (19:59)
[2024-03-08] MEDS: Benzonatate 100 MG CAPSULE PO (19:59)
[2024-03-09] VITALS: BP 135/96; PULSE 63; RESP 18; TEMP 36.3; O2SAT 94
[2024-03-09 03:49] VITALS: BP 125/61; PULSE 64; RESP 16; TEMP 36.2; O2SAT 96
[2024-03-09 07:05] VITALS: BP 154/67; PULSE 64; RESP 18; TEMP 36.6; O2SAT 96
--- NOTE | 2024-03-09 07:37 | P.DS_ITS ---
DS: Providers Provider Date of Service: 03/09/24 Date of admission: 03/03/24 16:28 Date of discharge: 03/09/24 Primary care physician: Jaimee Drake MD Consults: 03/03/24 16:10 Consult to Neurology Routine Consulting Provider: [facility] Reason for consultation: left sided weakness, swallowing problem 03/04/24 08:50 Consult to Wound Care Routine Reason for consultation: stage 2 coccyx DS: Diagnosis Discharge Diagnosis (1) Swallowing problem: Status: Acute (2) Physical deconditioning: Status: Acute (3) COVID-19 virus infection: Status: Acute (4) Acute hypokalemia: Status: Acute (5) Left-sided weakness: Status: Acute DS: Summary Hospital Course Hospital Course: Admission note HPI An 83 years old lady with PMH of dementia, GERD, anxiety, scoliosis, COPD, HLD, HTN among others who presented to ED with difficulties swallowing and left sided weakness. The patient has daughter at bedside who lives with her. reported that she noticed some problems swallowing yesterday but this morning she was not able to drink water, noticed left sided facial droop and weakness in LUE. The patient had Covid infection more that 2 weeks ago and has been deteriorating physically since then. not eating much and for the last 2 days unable to stand up. In ED CT\CTA unremarkable. NIH of 3. symptoms improved. admitted for evaluation and monitoring. Hospital course The patient was treated for: # physical deconditioning related to recent Covid infection; still testing positive and has significant weakness as she was seen by PT who recommended short term rehab but the patient is not willing to participate and after discussing with her and her HCP who was invoked during hospital stay decision was made to go back home on hospice services for now. HCP signed MOLST and changed her status to DNR\DNI. will be discharged home on Hospice. # LEft sided weakness on presentation seems to be related to general deconditioning and osteoarthritis. CT, CTA , MRI negative for acute findings. placed on ASA, Statin. Neurology evaluated the patient and recommended conservative measures and prevention. Discussed with HCP the need of ASA\Statin. she decided to hold on that for now and home medications adjusted at discharge with addition of Morphine and Ativan as needed for pain and anxiety. # Swallowing problem, Evaluated by [employer]PAIR[employer] teaml , NDD1. # Acute hypokalemia, replacement given and responded well Discharge plan Home hospice. Continue home medications for now. follow with hospice team for further recommendations. Time Attestation Discharge Coordination Time (in mins): 46 Quality: Safe Use of Opioids Does Pt have an Active Cancer Diagnosis on the Problem List?: No Quality: Stroke Does the patient have a stroke diagnosis?: No Physical Exam Vital Signs: Vital Signs: Last Vital Signs Temp 97.9 F 03/09/24 07:05 Pulse 64 03/09/24 07:05 Resp 18 03/09/24 07:05 BP 154/67 H 03/09/24 07:05 Pulse Ox 96 03/09/24 07:05 O2 Del Method Nasal Cannula 03/09/24 07:05 O2 Flow Rate 2 03/09/24 07:05 BMI result Body Mass Index 20.9 Const: Other: Constitutional : Awake, interactive, not in distress Neck : Normal inspection, Supple Cardiovascular : RRR, no JVP, no lower extremity edema Respiratory : good bilateral air entry, no crackles, wheezes or rhonchi Gastrointestinal: soft, lax, Normal bowel sounds, Non tender Skin : Warm, Dry Neurological : Alert & oriented to self only, No focal deficit, no facial droop DS: Data Imaging MRI - head: Radiologist's impression: ITS Impressions Head CT 03/03/24 09:19 IMPRESSION: No acute intracranial process seen This critical result was discussed with Dr. Tanner at 9:34 AM on 03/03/2024. It was ascertained that the content and urgency of the report was understood at the time of direct communication. Electronically signed by: Santiago Rosales MD 03/03/2024 09:36 AM EST RP Chest X-Ray 03/03/24 10:12 IMPRESSION: No active pulmonary disease. No change. Electronically signed by: Navid Marshall MD 03/03/2024 10:48 AM EST RP Head/Neck CTA 03/03/24 10:17 IMPRESSION: 1. No evidence of significant stenosis, occlusion, dissection, or aneurysm in the intracranial or major cervical arterial vasculature. 2. Ancillary findings as discussed. Electronically signed by: Navid Marshall MD 03/03/2024 11:31 AM EST RP MRI Brain IMPRESSION: 1. No restricted diffusion acute brain infarction. 2. Mild nonacute white matter pathology is nonspecific and likely due to small-vessel ischemic disease. 3. Small nodules susceptibility are nonspecific i including in the frontal lobes. Differential considerations include small focus of the amyloid angiopathy and sequela of hypertension. Please consider attention on follow-up to ensure stability and help exclude any potential growth. Findings of amyloid angiopathy are favored by imaging at this time. 4. Abnormal signal of the paranasal sinuses as can be associated with sinusitis. This document has been electronically signed by: Carlos Ballesteros MD on 03/03/2024 21:55:36 Discharge Plan Discharge Anticipated Discharge Date/Time: 03/09/24 07:29 Patient Disposition: Hospice - Home Discharge Diagnosis: Physical deconditioning Referrals: [facility] [Outside] - 1 Day (Home on Hospice. ) Po,Jaimee Ervin MD [Primary Care Provider] - 1 Week Discharge Medications: New morphine concentrate 100 mg/5 mL (20 mg/mL) solution 5 mg PO Q4H PRN (Reason: dyspnea, pain) Qty: 30 0RF Rx Instructions: Partial Fill upon patient request. lorazepam 1 mg tablet 0.5 mg PO Q6H PRN (Reason: anxiety) Qty: 12 0RF Continued albuterol sulfate 90 mcg/actuation HFA aerosol inhaler 2 puff PO Q4H PRN (Reason: bronchospasm) Qty: 8.5 0RF amlodipine 10 mg tablet 10 mg PO DAILY Qty: 90 3RF lisinopril-hydrochlorothiazide 20-12.5 mg tablet 1 tab PO DAILY Qty: 90 3RF atorvastatin 10 mg tablet 10 mg PO DAILY Qty: 90 3RF (DME) wheelchair See Rx Instructions .Route .MEDSUPPLY Qty: 1 0RF Rx Instructions: As directed fluticasone propionate [Flonase Allergy Relief] 50 mcg/actuation spray,suspension 2 spray intranasal DAILY Qty: 15.8 1RF Rx Instructions: administer into each nostril omeprazole 20 mg capsule,delayed release(DR/EC) 20 mg PO DAILY@0630 acetaminophen 325 mg capsule 325 mg PO QID PRN (Reason: Pain) mometasone 0.1 % cream 1 appl topical BID PRN (Reason: skin irritation) Qty: 45 0RF Rx Instructions: 1-2 week only Discontinued cholecalciferol (vitamin D3) 25 mcg (1,000 unit) capsule 25 mcg PO DAILY 90 Days Qty: 90 1RF sertraline 100 mg tablet 200 mg PO DAILY Qty: 180 2RF alprazolam 0.5 mg tablet 0.5 mg PO BEDTIME alprazolam 0.5 mg tablet 0.25 mg PO DAILY Rx Instructions: Takes 1/2 a tab in the AM, full tab in the PM Zyrtec 10 mg Capsule 10 mg PO DAILY Discharge Orders: Discharge Order (Routine); Ordered 03/09/24 Ordered By: Shelbi Palacios Diet: Advance to usual diet Activity on Discharge: As tolerated Stand Alone Forms: Patient Portal Discharge page Print Language: Azeri Care Plan Goals: Hospice care at home Health Concerns: PHysical deconditioning Covid infection Plan of Treatment: Hospice measures Assessment: as above
[2024-03-09] MEDS: Cholecalciferol (Vitamin D3) 25 MCG TABLET PO (09:06)
[2024-03-09] MEDS: Sertraline HCL 100 MG TABLET 200 MG PO (09:06)
[2024-03-09] MEDS: Loratadine 10 MG TABLET PO (09:06)
[2024-03-09] MEDS: guaiFENesin DM 600/30 1 TAB TAB.ER.12H PO (09:06)
[2024-03-09] MEDS: Benzonatate 100 MG CAPSULE PO (09:06)
[2024-03-09] MEDS: Aspirin 81 MG TAB.CHEW PO (09:07)
[2024-03-09] MEDS: 0.9 % Sodium Chloride Flush 3 ML SYRINGE IVFLUSH (09:07)
[2024-03-09] MEDS: Fluticasone Propionate Nasal 16 GM SPRAY 2 SPRAY NOSTRIL-B (09:15)
--- NOTE | 2024-03-09 09:19 | MHC.CM.PN ---
IMM 03/09/24 DELIVERED TO BEDSIDE, DTR/HCP AILEEN AT BEDSIDE, CM CONFIRMED W/MAGALY FROM [facility]/HOSPICE [phone] TO CONFIRM DC TIME/MEDS/REQUEST FOR PLACEMENT OF INDWELLING CATHETER, [facility] FOR BLS TRANSPORT AT 11AM.
== END 2024-03-09 11:41 | disposition hospice, home (50) | DRG 179 ==
LOC: HO.ED 14:04 → HO.EDOVER 16:42 → HO.IMC 03-04 07:44
PROVIDERS: Admitting Provider Student in an Organized Health Care Education/Training Program; Emergency Provider Emergency Medicine; PCP Internal Medicine; Visit Provider Student in an Organized Health Care Education/Training Program
DX: U07.1 COVID-19 (principal); F41.9 Anxiety disorder, unspecified; J44.9 Chronic obstructive pulmonary disease, unspecified; F03.90 Unspecified dementia, unspecified severity, without behavioral disturbance, psychotic disturbance, mood disturbance, and anxiety; R29.810 Facial weakness; L89.152 Pressure ulcer of sacral region, stage 2; Z66 Do not resuscitate; M19.012 Primary osteoarthritis, left shoulder; R53.81 Other malaise; E87.6 Hypokalemia; Z79.51 Long term (current) use of inhaled steroids; Z79.899 Other long term (current) drug therapy
CPT/HCPCS: 0241U; 36415; 70450; 70496; 70498; 70551; 71045; 80048; 80061; 81003; 82947; 84443; 84484; 85025; 85027; 85610; 85730; 92526; 92610; 93005; 97162; 97166; 97530; 97535; 99285; C1758; J0131; J0696; J1650; J3480; Q9967

== ENCOUNTER → 2024-03-03 09:17 | Outpatient (BNV) | payer MEDICARE, SELFPAY | PROVIDERS: Emergency Provider Emergency Medicine; PCP Internal Medicine; Visit Provider Radiology Diagnostic Radiology | DX: R53.1 Weakness (principal); R47.81 Slurred speech; I69.354 Hemiplegia and hemiparesis following cerebral infarction affecting left non-dominant side; I63.9 Cerebral infarction, unspecified | CPT/HCPCS: 70450; 70496; 70498; 70551; 71045 ==

== ENCOUNTER → 2024-03-03 09:17 | Outpatient (BNV) | payer MEDICARE, SELFPAY | PROVIDERS: Emergency Provider Emergency Medicine; PCP Internal Medicine; Visit Provider Internal Medicine Cardiovascular Disease | DX: I49.3 Ventricular premature depolarization (principal); R94.31 Abnormal electrocardiogram [ECG] [EKG] | CPT/HCPCS: 93010 ==

== ENCOUNTER → 2024-03-03 16:09 | Outpatient (BNV) | payer MEDICARE, SELFPAY | PROVIDERS: Admitting Provider Student in an Organized Health Care Education/Training Program; Emergency Provider Emergency Medicine; PCP Internal Medicine; Visit Provider Student in an Organized Health Care Education/Training Program | DX: R13.10 Dysphagia, unspecified (principal); R53.81 Other malaise; U07.1 COVID-19; E87.6 Hypokalemia; R53.1 Weakness | CPT/HCPCS: 99222; 99232; 99239 ==

== ENCOUNTER → 2024-03-03 16:28 | Outpatient (BNV) | payer MEDICARE, SELFPAY | PROVIDERS: Admitting Provider Student in an Organized Health Care Education/Training Program; Emergency Provider Emergency Medicine; PCP Internal Medicine; Visit Provider Psychiatry & Neurology Neurology | DX: R53.1 Weakness (principal) | CPT/HCPCS: 99222 ==